=== PATIENT | female | born 1935 | race Native Hawaiian/Other Pacific Islander ===

== ENCOUNTER 2018-10-23 23:11 | Inpatient (IN) | payer MEDICARE, MEDICAID ==
[2018-10-23] MEDS ORDERED: Sodium Chloride 0.9% 1,000 ML IV ONE (23:22)
[2018-10-23 23:35] LABS: BASO % 0.1 % (0.0-2.0); LYMPH # 1.3 K/uL (1.0-4.3); LYMPH % 8.6 % (20.0-40.0); MEAN CELL VOLUME 90.2 fL (81.0-99.0); MEAN CORPUSCULAR HEMOGLOBIN 30.5 pg (27.0-31.0); MEAN CORPUSCULAR HGB CONC 33.8 g/dL (33.0-37.0); MEAN PLATELET VOLUME 8.5 fL (7.2-11.7); MONO # 0.8 K/uL (0.0-0.8); MONO % 5.5 % (0.0-10.0); NEUT # 12.6 K/uL (1.8-7.0); NEUT % 85.8 % (50.0-75.0); PLATELET COUNT 304 K/uL (130-400); RBC 5.58 Mil/uL (3.80-5.20); RED CELL DISTRIBUTION WIDTH 13.4 % (11.5-14.5); WHITE BLOOD COUNT 14.7 K/uL (4.8-10.8)
--- NOTE | 2018-10-23 23:35 | C.PDOC ---
History Of Present Illness 83 year old female brought in by family for 2 days of epigastric abdominal pain with vomiting. Family states patient has Hx of hiatal hernia and believed the pain was due to that which was why she was not brought in sooner. Denies chest pain, SOB, fever, or chills. Time Seen by Provider: 10/23/18 23:20 Chief Complaint (Nursing): Abdominal Pain History Per: Patient History/Exam Limitations: no limitations Onset/Duration Of Symptoms: Days (2) Current Symptoms Are (Timing): Still Present Location Of Pain/Discomfort: Epigastric Quality Of Discomfort: Unable To Describe Associated Symptoms: Vomiting. denies: Fever, Chills, Chest Pain, Other (SOB) Exacerbating Factors: None Alleviating Factors: None Recent travel outside of the [place]: No Abnormal Vaginal Bleeding: No Past Medical History Reviewed: Historical Data, Nursing Documentation, Vital Signs Family History: States: Unknown Family Hx Review Of Systems Except As Marked, All Systems Reviewed And Found Negative. Constitutional: Negative for: Fever, Chills Cardiovascular: Negative for: Chest Pain Respiratory: Negative for: Shortness of Breath Gastrointestinal: Positive for: Vomiting, Abdominal Pain Physical Exam - Physical Exam Appears: Non-toxic Skin: Normal Color, Warm, Dry Head: Atraumatic, Normacephalic Oral Mucosa: Moist Neck: Normal, No Midline Cervical Tenderness, No Paracervical Tenderness, Supple Chest: Symmetrical, No Tenderness Cardiovascular: Rhythm Regular Respiratory: Normal Breath Sounds, No Rales, No Rhonchi, No Wheezing Gastrointestinal/Abdominal: Bowel Sounds (Positive), Soft, Tenderness (Epigastric), No Guarding, No Rebound Back: No CVA Tenderness Neurological/Psych: Oriented x3, Normal Speech ED Course And Treatment - Laboratory Results Result Diagrams: 10/23/18 23:32 10/23/18 23:32 ECG: Interpreted By Me, Viewed By Me ECG Rhythm: Sinus Rhythm Interpretation Of ECG: Incomplete RBBB, nonspecific ST changes Rate From EC Medical Decision Making Medical Decision Making: CT abd/pel, EKG, blood work, CXR, and urinalysis ordered. Morphine, protonix, zofran, and IV fluids administered. Disposition Discussed With : Anurag Conte - Disposition Disposition Time: 01:00 Condition: STABLE Forms: [employer] ([place]) - Clinical Impression Clinical Impression: Abdominal pain, Hypokalemia, Vomiting - Scribe Statement The provider has reviewed the documentation as recorded by the Scribe Ross Ruiz All medical record entries made by the Scribe were at my direction and personally dictated by me. I have reviewed the chart and agree that the record accurately reflects my personal performance of the history, physical exam, medical decision making, and the department course for this patient. I have also personally directed, reviewed, and agree with the discharge instructions and disposition. Physician Patient Turnover Patient Signed Over To: Anurag Conte Handoff Comments: pending ct of abdomen, labs and admisison
[2018-10-23 23:47] LABS: ALBUMIN 4.8 g/dL (3.5-5.0); CALCIUM 9.9 mg/dl (8.6-10.4)
[2018-10-23] MEDS ORDERED: Sodium Chloride 0.9% 1,000 ML ONE (23:54)
[2018-10-24] MEDS ORDERED: Potassium Chloride 20 mEq 200 ML ONE (00:07)
[2018-10-24 00:19] LABS: TROPONIN I 0.224 ng/mL (0.00-0.120)
[2018-10-24] MEDS ORDERED: Piperacillin/Tazobact 3.375 gm 100 ML IVPB STA (00:33)
[2018-10-24 00:43] LABS: VENOUS BLOOD GAS PCO2 57 mmHg (40-60); VENOUS BLOOD GAS PO2 31 mm/Hg (30-55); VENOUS BLOOD PH 7.49 (7.32-7.43)
[2018-10-24] MEDS ORDERED: Iodixanol 320 mg/ml 150 ml Bottle IV ONE (00:51)
[2018-10-24 01:13] LABS: BANDS 2 % (0-2); LYMPHOCYTE 11 % (20-40); MONOCYTE 5 % (0-10); NEUTROPHIL 82 % (50-75); PLATELET ESTIMATE NORMAL (NORMAL); TOTAL CELLS COUNTED 100
[2018-10-24] MEDS ORDERED: Piperacillin/Tazobact 3.375 gm 100 ML IVPB ONE (01:24)
--- NOTE | 2018-10-24 02:13 | CP.PCM.HP ---
<Yasmany Spring - Last Filed: 10/24/18 05:19> History of Present Illness - History of Present Illness History of Present Illness: PGY1 H&P for Medicine Hospitalist Patient is a 83 y/o female with past medical history of hiatal hernia, DVT/PE on coumadin, HTN who presented to the ED with complaints of non-radiating epigastric pain and vomiting for the past 2 days. Pt presents with daughterSanjuana. Daughter and pt both confirm that she has vomiting in excess of 7 times, which began right after she last ate 2 days ago. Pt has a history of feeling full after eating, which causes epigastric abdominal pain that is relieved by vomiting. However, during these past two days, the pain did not resolve with vomiting. Vomit advanced from food material, to liquid material, to some bright bloody material. She is not only vomiting dark, coffee ground material. Last bowel movement was 2 days ago, which was normal. Denies fever, chills, chest pain, palpitations, sob, diarrhea, urinary changes, numbness or tingling, headache, blurry vision, falls, trauma. PMD - Dr. White PMHx - hiatal hernia (dx ~10 years ago), DVT/PE in 2000, HTN PSHx- Appendectomy (~50 years ago), IVC Filter (10 years ago) Allergies - Seasonal Meds - Coumadin 3mg PO HS, Losartan HCTZ 100- 25mg PO HS, Bisoprolol 5mg PO HS FamHx- Mother (DM), sister (HTN) SocHx - Never consumed tobacco, alcohol, recreational drugs. Lives with her daughter in an apartment on the second floor. madelyn Wei, [phone] Present on Admission - Present on Admission Any Indicators Present on Admission: Yes History of DVT/PE: Yes Review of Systems - Review of Systems All systems: reviewed and no additional remarkable complaints except (se HPI) Past Patient History - Past Social History Smoking Status: Never Smoked - CARDIAC Hx Hypertension: Yes - PULMONARY Hx Pulmonary Embolism: Yes - PSYCHIATRIC Hx Substance Use: No Meds Allergies/Adverse Reactions: Allergies Allergy/AdvReac Type Severity Reaction Status Date / Time No Known Allergies Allergy Unverified 10/23/18 23:21 Physical Exam - Constitutional Appears: Non-toxic, No Acute Distress - Head Exam Head Exam: ATRAUMATIC, NORMAL INSPECTION - Eye Exam Eye Exam: EOMI, Normal appearance - ENT Exam ENT Exam: Mucous Membranes Dry Additional comments: (+) NGT in place, on intermittent suction with >350cc of coffee ground material in cannister - Neck Exam Neck exam: Positive for: Normal Inspection - Respiratory Exam Respiratory Exam: Rales (in left lower lung field), NORMAL BREATHING PATTERN. absent: Decreased Breath Sounds, Rhonchi, Wheezes Additional comments: (+) gastric sounds in upper mid thoracic auscultation - Cardiovascular Exam Cardiovascular Exam: Tachycardia (approximately 100), REGULAR RHYTHM, +S1, +S2. absent: Diastolic murmur, Irregular Rhythm, JVD, Systolic Murmur - GI/Abdominal Exam GI & Abdominal Exam: Normal Bowel Sounds, Soft, Tenderness (epigastric tenderness). absent: Firm, Guarding, Rebound, Rigid - Extremities Exam Extremities exam: Positive for: pedal pulses present. Negative for: calf tend erness, pedal edema - Back Exam Back exam: NORMAL INSPECTION - Neurological Exam Neurological exam: Alert, Oriented x3 - Psychiatric Exam Psychiatric exam: Normal Affect, Normal Mood - Skin Skin Exam: Dry, Normal Color, Warm Additional comments: (+) decreased skin turgor Results - Vital Signs Recent Vital Signs: Last Vital Signs Temp 98 F 10/23/18 23:46 Pulse 86 10/23/18 23:46 Resp 24 10/23/18 23:46 BP 120/73 10/23/18 23:46 Pulse Ox 94 L 10/23/18 23:46 - Labs Result Diagrams: 10/24/18 05:02 10/23/18 23:32 Labs: Laboratory Results - last 24 hr 10/23/18 10/23/18 10/23/18 23:32 23:32 23:50 WBC 14.7 H D RBC 5.58 H Hgb 17.0 H D Hct 50.4 H MCV 90.2 MCH 30.5 MCHC 33.8 RDW 13.4 Plt Count 304 MPV 8.5 Neut % (Auto) 85.8 H Lymph % (Auto) 8.6 L [place] % (Auto) 5.5 Eos % (Auto) 0.0 Baso % (Auto) 0.1 Neut # (Auto) 12.6 H Lymph # (Auto) 1.3 [place] # (Auto) 0.8 Eos # (Auto) 0.0 Baso # (Auto) 0.0 Neutrophils % (Manual) 82 H Band Neutrophils % 2 Lymphocytes % (Manual) 11 L Monocytes % (Manual) 5 Platelet Estimate Normal pO2 VBG pH VBG pCO2 VBG HCO3 VBG Total CO2 VBG O2 Sat (Calc) VBG Base Excess VBG Potassium Glucose Lactate Sodium 140 Potassium 2.7 L Chloride 88 L Carbon Dioxide 37 H Anion Gap 17 BUN 43 H Creatinine 1.1 Est GFR ( Amer) 57 Est GFR (Non-Af Amer) 47 Random Glucose 243 H D Calcium 9.9 Total Bilirubin 0.7 AST 63 H ALT 20 Alkaline Phosphatase 80 Troponin I 0.2240 H* NT-Pro-B Natriuret Pep 3110 H Total Protein 9.5 H Albumin 4.8 Globulin 4.7 H Albumin/Globulin Ratio 1.0 Lipase 112 Venous Blood Potassium Stool Occult Blood 10/24/18 10/24/18 00:35 01:18 WBC RBC Hgb Hct MCV MCH MCHC RDW Plt Count MPV Neut % (Auto) Lymph % (Auto) [place] % (Auto) Eos % (Auto) Baso % (Auto) Neut # (Auto) Lymph # (Auto) [place] # (Auto) Eos # (Auto) Baso # (Auto) Neutrophils % (Manual) Band Neutrophils % Lymphocytes % (Manual) Monocytes % (Manual) Platelet Estimate pO2 31 VBG pH 7.49 H VBG pCO2 57 VBG HCO3 37.3 VBG Total CO2 45.1 H VBG O2 Sat (Calc) 58.5 VBG Base Excess 17.0 H VBG Potassium 2.8 L Glucose 206 H Lactate 2.6 H Sodium 142.0 Potassium Chloride 94.0 L Carbon Dioxide Anion Gap BUN Creatinine Est GFR ( Amer) Est GFR (Non-Af Amer) Random Glucose Calcium Total Bilirubin AST ALT Alkaline Phosphatase Troponin I NT-Pro-B Natriuret Pep Total Protein Albumin Globulin Albumin/Globulin Ratio Lipase Venous Blood Potassium 2.8 L Stool Occult Blood Negative Assessment & Plan - Assessment and Plan (Free Text) Assessment: This is an 83 y/o female with past medical history of hiatal hernia, DVT/PE on coumadin, HTN who presented to the ED with epigastric pain and coffee ground emesis.Troponin is elevated on admission. Plan: NSTEMI, possibly due to demand ischemia Pt is hemodynamically stable Troponin 0.2240, will trend JER panel with EKG q6h x2 ASA contraindicated due to acute GI bleed EKG shows NSR at 86, incomplete RBBB; as per ED physician Betablocker not given due to risk of hypotension in setting of GI bleed BNP is 3110 Cardiology, Dr. Beckett, consulted. Recommendations appreciated GI Bleed Pt is hemodynamically stable NGT expressed 350 cc of coffee ground emesis on insertion by ED physician Possibly upper GI bleed; FOBT is negative Protonix gtt started NPO Gastroenterology, Dr. Cervantes, consulted. Recommendations appreciated FFP x2 units, NGT to gravity after decompression Will scope this am Gastric outlet obstruction, likely secondary to chronic hiatal hernia Abdominal CT with IV contrast shows complex rotated hernia. Retrocardiac stomach. Partial gastric outlet obstruction secondary to hernia. Pulmonary nodules. No signs of perforation; will f/u official reading. Surgery, Dr Hogan, consulted. Recommendations appreciated. 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 the pt Zofran prn nausea/vomiting Leukocytosis Pt afebrile Received one dose of Zosyn in the ED Likely reactive Lactate is 2.6 but possibly due to decreased perfusion Hypochloremic metabolic acidosis with hypokalemia, likely secondary to multiple episodes of vomiting Pt received potassium chloride 20 meq IVPB x2 in the ED Will continue to replete potassium Will hydrate with IVF at 50 cc/hr Hyperglycemia on admission, likely reactive F/u HgbA1c Hx of HTN Pt is normotensive In setting of acute GI bleed, will hold home Losartan/HCTZ, Bisoprolol Will reconsider restarting in the am Hx of DVT/PE Coumadin on hold in setting of GI bleed PT/PTT/INR is 28.0/42/2.6 Will give vitamin K 10 mg IVP, 2 units of FFP GI ppx: Protonix gtt VTE PPX: contraindicated secondary to GI bleed NPO Full code Dispo: Admit to telemetry, consider ICU evaluation in event of decompensation Case was reviewed and discussed with attending physician, Dr. Amara Spring PGY1 <Dominic Maloney - Last Filed: 10/24/18 06:40> Results - Vital Signs Recent Vital Signs: Last Vital Signs Temp 98.0 F 10/24/18 02:21 Pulse 90 10/24/18 04:49 Resp 18 10/24/18 04:49 BP 134/97 H 10/24/18 04:49 Pulse Ox 97 10/24/18 04:49 - Labs Result Diagrams: 10/24/18 05:02 10/24/18 05:02 Labs: Laboratory Results - last 24 hr 10/23/18 10/23/18 10/23/18 23:32 23:32 23:50 WBC 14.7 H D RBC 5.58 H Hgb 17.0 H D Hct 50.4 H MCV 90.2 MCH 30.5 MCHC 33.8 RDW 13.4 Plt Count 304 MPV 8.5 Neut % (Auto) 85.8 H Lymph % (Auto) 8.6 L [place] % (Auto) 5.5 Eos % (Auto) 0.0 Baso % (Auto) 0.1 Neut # (Auto) 12.6 H Lymph # (Auto) 1.3 [place] # (Auto) 0.8 Eos # (Auto) 0.0 Baso # (Auto) 0.0 Neutrophils % (Manual) 82 H Band Neutrophils % 2 Lymphocytes % (Manual) 11 L Monocytes % (Manual) 5 Platelet Estimate Normal PT INR APTT pO2 VBG pH VBG pCO2 VBG HCO3 VBG Total CO2 VBG O2 Sat (Calc) VBG Base Excess VBG Potassium Glucose Lactate Sodium 140 Potassium 2.7 L Chloride 88 L Carbon Dioxide 37 H Anion Gap 17 BUN 43 H Creatinine 1.1 Est GFR ( Amer) 57 Est GFR (Non-Af Amer) 47 Random Glucose 243 H D Calcium 9.9 Phosphorus Magnesium Total Bilirubin 0.7 AST 63 H ALT 20 Alkaline Phosphatase 80 Total Creatine Kinase CK-MB (Mass) Troponin I 0.2240 H* NT-Pro-B Natriuret Pep 3110 H Total Protein 9.5 H Albumin 4.8 Globulin 4.7 H Albumin/Globulin Ratio 1.0 Lipase 112 Venous Blood Potassium Stool Occult Blood Blood Type Blood Type Confirm Antibody Screen 10/24/18 10/24/18 10/24/18 00:35 01:18 01:47 WBC RBC Hgb Hct MCV MCH MCHC RDW Plt Count MPV Neut % (Auto) Lymph % (Auto) [place] % (Auto) Eos % (Auto) Baso % (Auto) Neut # (Auto) Lymph # (Auto) [place] # (Auto) Eos # (Auto) Baso # (Auto) Neutrophils % (Manual) Band Neutrophils % Lymphocytes % (Manual) Monocytes % (Manual) Platelet Estimate PT INR APTT pO2 31 VBG pH 7.49 H VBG pCO2 57 VBG HCO3 37.3 VBG Total CO2 45.1 H VBG O2 Sat (Calc) 58.5 VBG Base Excess 17.0 H VBG Potassium 2.8 L Glucose 206 H Lactate 2.6 H Sodium 142.0 Potassium Chloride 94.0 L Carbon Dioxide Anion Gap BUN Creatinine Est GFR ( Amer) Est GFR (Non-Af Amer) Random Glucose Calcium Phosphorus Magnesium Total Bilirubin AST ALT Alkaline Phosphatase Total Creatine Kinase CK-MB (Mass) Troponin I NT-Pro-B Natriuret Pep Total Protein Albumin Globulin Albumin/Globulin Ratio Lipase Venous Blood Potassium 2.8 L Stool Occult Blood Negative Blood Type A POSITIVE Blood Type Confirm A POSITIVE Antibody Screen Negative 10/24/18 10/24/18 10/24/18 02:10 03:16 05:02 WBC 15.5 H RBC 5.60 H Hgb 16.6 H Hct 50.9 H MCV 90.9 MCH 29.7 MCHC 32.7 L RDW 13.8 Plt Count 262 MPV 8.7 Neut % (Auto) 89.1 H Lymph % (Auto) 4.3 L [place] % (Auto) 5.7 Eos % (Auto) 0.0 Baso % (Auto) 0.9 Neut # (Auto) 13.8 H Lymph # (Auto) 0.7 L [place] # (Auto) 0.9 H Eos # (Auto) 0.0 Baso # (Auto) 0.1 Neutrophils % (Manual) 85 H Band Neutrophils % 2 Lymphocytes % (Manual) 9 L Monocytes % (Manual) 4 Platelet Estimate Normal PT 28.0 H INR 2.6 APTT 42 H pO2 VBG pH VBG pCO2 VBG HCO3 VBG Total CO2 VBG O2 Sat (Calc) VBG Base Excess VBG Potassium Glucose Lactate Sodium Potassium Chloride Carbon Dioxide Anion Gap BUN Creatinine Est GFR ( Amer) Est GFR (Non-Af Amer) Random Glucose Calcium Phosphorus 4.4 Magnesium 1.7 Total Bilirubin AST ALT Alkaline Phosphatase Total Creatine Kinase CK-MB (Mass) Troponin I NT-Pro-B Natriuret Pep Total Protein Albumin Globulin Albumin/Globulin Ratio Lipase Venous Blood Potassium Stool Occult Blood Blood Type Blood Type Confirm Antibody Screen 10/24/18 10/24/18 10/24/18 05:02 05:02 05:44 WBC RBC Hgb Hct MCV MCH MCHC RDW Plt Count MPV Neut % (Auto) Lymph % (Auto) [place] % (Auto) Eos % (Auto) Baso % (Auto) Neut # (Auto) Lymph # (Auto) [place] # (Auto) Eos # (Auto) Baso # (Auto) Neutrophils % (Manual) Band Neutrophils % Lymphocytes % (Manual) Monocytes % (Manual) Platelet Estimate PT 30.6 H INR 2.8 APTT pO2 VBG pH VBG pCO2 VBG HCO3 VBG Total CO2 VBG O2 Sat (Calc) VBG Base Excess VBG Potassium Glucose Lactate Sodium 141 Potassium 2.9 L Chloride 91 L Carbon Dioxide 40 H* Anion Gap 14 BUN 46 H Creatinine 1.2 Est GFR ( Amer) 52 Est GFR (Non-Af Amer) 43 Random Glucose 158 H D Calcium 9.5 Phosphorus 4.2 Magnesium 1.8 Total Bilirubin 0.7 AST 56 H ALT 19 Alkaline Phosphatase 73 Total Creatine Kinase 439 H CK-MB (Mass) 5.44 H Troponin I 0.1680 H* NT-Pro-B Natriuret Pep Total Protein 8.8 H Albumin 4.5 Globulin 4.4 H Albumin/Globulin Ratio 1.0 Lipase Venous Blood Potassium Stool Occult Blood Blood Type Blood Type Confirm Antibody Screen Assessment & Plan - Date & Time Date: 10/24/18 (I have seen and examined the patient. I agree with the findings and plan of care as documented by Dr. Spring. Patient with NSTEMI. ROMIx3 with EKG. No aspirin given due to GI bleed. Consult to Cardio. Consult to GI for GI bleed. Consult appreciated. Protonix. FFP. Hold coumadin. Gastric outlet obstruction. Consult to Surgery who recommends consult to Cardiothora cic. Monitor for acute changes.) Time: 06:38 Attending/Attestation - Attestation I have personally seen and examined this patient.: Yes I have fully participated in the care of the patient.: Yes I have reviewed all pertinent clinical information: Yes
[2018-10-24 02:37] LABS: INR 2.6
[2018-10-24] MEDS ORDERED: Phytonadione 10 mg/ml Inj (Adult) IV STA (03:14)
[2018-10-24] MEDS ORDERED: Lactated Ringer's 1,000 ML IV SCH (03:15)
[2018-10-24] MEDS ORDERED: Sodium Chloride 0.9% 1,000 ML IV ONE (03:19)
[2018-10-24] MEDS ORDERED: Sodium Chloride 0.9% 1,000 ML IV SCH ×2 (03:30→04:45)
--- NOTE | 2018-10-24 03:34 | CP.PCM.CON ---
History of Present Illness - History of Present Illness History of Present Illness: Surgery Consult Note for Dr. Hogan Consult: Gastric outlet obstruction CC: Hematemesis HPI: 83 year old female, past medical history of Hiatal hernia, DVTs on coumadin s/p IVC filter ('01) and HTN, presents to the emergency department with bilious and bloody vomiting since Sunday. Patient's family at bedside providing history. Patient has known hiatal hernia and with overeating experiences nausea and vomiting that usually resolves however this time patient continued to vomit until family noticed blood. She has never experienced such severe symptoms before. Unable to tolerate PO intake at this time. States she is having some shortness of breath. Denies nausea, diarrhea, or constipation. Last bowel movement was Sunday, normal per patient. In ED, NGT placed by ER physician with 200cc of bilious output. Last EGD and colonoscopy 10 years ago, states normal. Denies fever, chills, chest pain, palpitations, headaches, dizziness, or urinary symptoms. PMH: See above PSH: Appendectomy, IVC filter FH: Noncontributory SH: Denies tobacco, alcohol, drugs ALL: NKDA Meds: See MAR Review of Systems - Constitutional Constitutional: Weakness. absent: Chills, Fever - EENT Eyes: absent: Blurred Vision, Change in Vision Nose/Mouth/Throat: absent: Nasal Congestion, Nasal Discharge - Cardiovascular Cardiovascular: Dyspnea. absent: Chest Pain - Respiratory Respiratory: Dyspnea. absent: Cough, Hemoptysis - Gastrointestinal Gastrointestinal: Abdominal Pain, Hematemesis, Vomiting. absent: Bloating, Coffee Ground Emesis, Cramping, Diarrhea, Nausea - Genitourinary Genitourinary: absent: Difficulty Urinating, Dysuria - Musculoskeletal Musculoskeletal: absent: Back Pain, Neck Pain - Integumentary Integumentary: absent: Bleeding Lesions, Changing Lesions - Neurological Neurological: absent: Confusion, Dizziness - Psychiatric Psychiatric: absent: Anxiety, Depression Past Patient History - Past Social History Smoking Status: Never Smoked - CARDIAC Hx Hypertension: Yes - PULMONARY Hx Pulmonary Embolism: Yes - PSYCHIATRIC Hx Substance Use: No Meds Allergies/Adverse Reactions: Allergies Allergy/AdvReac Type Severity Reaction Status Date / Time No Known Allergies Allergy Unverified 10/23/18 23:21 - Medications Medications: Current Medications Pantoprazole Sodium 80 mg/ (Sodium Chloride) 100 mls @ 10 mls/hr IVP .Q10H [facility]ASE Sodium Chloride (Sodium Chloride 0.9%) 1,000 mls @ 1,000 mls/hr IV .Q1H ONE Stop: 10/24/18 04:18 Sodium Chloride (Sodium Chloride 0.9%) 1,000 mls @ 110 mls/hr IV .Q9H6M [facility]ASE Potassium Chloride (Potassium Chloride 20 Meq/100 Ml) 20 meq in 100 mls @ 50 mls/hr IVPB DAILY HCASE Stop: 10/24/18 11:59 Physical Exam - Constitutional Appears: Non-toxic, No Acute Distress - Head Exam Head Exam: ATRAUMATIC, NORMAL INSPECTION, NORMOCEPHALIC - Eye Exam Eye Exam: EOMI - ENT Exam ENT Exam: Mucous Membranes Dry - Respiratory Exam Respiratory Exam: NORMAL BREATHING PATTERN. absent: Accessory Muscle Use, Respiratory Distress - Cardiovascular Exam Cardiovascular Exam: REGULAR RHYTHM. absent: Tachycardia - GI/Abdominal Exam GI & Abdominal Exam: Normal Bowel Sounds, Soft. absent: Distended, Guarding, Rebound, Tenderness Additional comments: NGT - low, continuous at 80 - Neurological Exam Neurological exam: Alert, Oriented x3 - Psychiatric Exam Psychiatric exam: Normal Affect, Normal Mood - Skin Skin Exam: Dry, Intact, Normal Color, Warm Results - Vital Signs Recent Vital Signs: Last Vital Signs Temp 98.0 F 10/24/18 02:21 Pulse 89 10/24/18 02:21 Resp 16 10/24/18 02:21 BP 128/89 10/24/18 02:21 Pulse Ox 96 10/24/18 02:21 - Labs Result Diagrams: 10/23/18 23:32 10/23/18 23:32 Labs: Laboratory Results - last 24 hr 10/23/18 10/23/18 10/23/18 23:32 23:32 23:50 WBC 14.7 H D RBC 5.58 H Hgb 17.0 H D Hct 50.4 H MCV 90.2 MCH 30.5 MCHC 33.8 RDW 13.4 Plt Count 304 MPV 8.5 Neut % (Auto) 85.8 H Lymph % (Auto) 8.6 L [place] % (Auto) 5.5 Eos % (Auto) 0.0 Baso % (Auto) 0.1 Neut # (Auto) 12.6 H Lymph # (Auto) 1.3 [place] # (Auto) 0.8 Eos # (Auto) 0.0 Baso # (Auto) 0.0 Neutrophils % (Manual) 82 H Band Neutrophils % 2 Lymphocytes % (Manual) 11 L Monocytes % (Manual) 5 Platelet Estimate Normal PT INR APTT pO2 VBG pH VBG pCO2 VBG HCO3 VBG Total CO2 VBG O2 Sat (Calc) VBG Base Excess VBG Potassium Glucose Lactate Sodium 140 Potassium 2.7 L Chloride 88 L Carbon Dioxide 37 H Anion Gap 17 BUN 43 H Creatinine 1.1 Est GFR ( Amer) 57 Est GFR (Non-Af Amer) 47 Random Glucose 243 H D Calcium 9.9 Total Bilirubin 0.7 AST 63 H ALT 20 Alkaline Phosphatase 80 Troponin I 0.2240 H* NT-Pro-B Natriuret Pep 3110 H Total Protein 9.5 H Albumin 4.8 Globulin 4.7 H Albumin/Globulin Ratio 1.0 Lipase 112 Venous Blood Potassium Stool Occult Blood Blood Type Antibody Screen 10/24/18 10/24/18 10/24/18 00:35 01:18 01:47 WBC RBC Hgb Hct MCV MCH MCHC RDW Plt Count MPV Neut % (Auto) Lymph % (Auto) [place] % (Auto) Eos % (Auto) Baso % (Auto) Neut # (Auto) Lymph # (Auto) [place] # (Auto) Eos # (Auto) Baso # (Auto) Neutrophils % (Manual) Band Neutrophils % Lymphocytes % (Manual) Monocytes % (Manual) Platelet Estimate PT INR APTT pO2 31 VBG pH 7.49 H VBG pCO2 57 VBG HCO3 37.3 VBG Total CO2 45.1 H VBG O2 Sat (Calc) 58.5 VBG Base Excess 17.0 H VBG Potassium 2.8 L Glucose 206 H Lactate 2.6 H Sodium 142.0 Potassium Chloride 94.0 L Carbon Dioxide Anion Gap BUN Creatinine Est GFR ( Amer) Est GFR (Non-Af Amer) Random Glucose Calcium Total Bilirubin AST ALT Alkaline Phosphatase Troponin I NT-Pro-B Natriuret Pep Total Protein Albumin Globulin Albumin/Globulin Ratio Lipase Venous Blood Potassium 2.8 L Stool Occult Blood Negative Blood Type A POSITIVE Antibody Screen Negative 10/24/18 02:10 WBC RBC Hgb Hct MCV MCH MCHC RDW Plt Count MPV Neut % (Auto) Lymph % (Auto) [place] % (Auto) Eos % (Auto) Baso % (Auto) Neut # (Auto) Lymph # (Auto) [place] # (Auto) Eos # (Auto) Baso # (Auto) Neutrophils % (Manual) Band Neutrophils % Lymphocytes % (Manual) Monocytes % (Manual) Platelet Estimate PT 28.0 H INR 2.6 APTT 42 H pO2 VBG pH VBG pCO2 VBG HCO3 VBG Total CO2 VBG O2 Sat (Calc) VBG Base Excess VBG Potassium Glucose Lactate Sodium Potassium Chloride Carbon Dioxide Anion Gap BUN Creatinine Est GFR ( Amer) Est GFR (Non-Af Amer) Random Glucose Calcium Total Bilirubin AST ALT Alkaline Phosphatase Troponin I NT-Pro-B Natriuret Pep Total Protein Albumin Globulin Albumin/Globulin Ratio Lipase Venous Blood Potassium Stool Occult Blood Blood Type Antibody Screen Assessment & Plan - Assessment and Plan (Free Text) Assessment: 83F w/ abdominal pain and hematemesis, dehydration CT: Hiatal hernia (Type 4?) w/ decompressed bowel distally, no evidence of free air or ischemic changes Plan: NPO NGT - low, intermittent at 80 IVF - patient severely dehydrated, likely metabolic alkalosis 2/2 vomiting, need adequate resuscitation Monitor PT/INR Serial abdominal exams AM labs F/u GI recommendations - EGD in AM F/u cardiology Recommend cardiothoracic consult and further evaluation with Dr. Perez D/w Dr. Edison Vu PGY1
[2018-10-24] MEDS ORDERED: Phytonadione 10 mg/ml Inj (Adult) ONE (04:01)
[2018-10-24] MEDS: Pantoprazole 80 MG in Sodium Chloride 0.9% 100 ML IVP SCH ×3 (04:05→23:16)
[2018-10-24 05:07] LABS: BASO # 0.1 K/uL (0.0-0.2); BASO % 0.9 % (0.0-2.0); HEMOGLOBIN 16.6 g/dL (11.0-16.0); LYMPH # 0.7 K/uL (1.0-4.3); LYMPH % 4.3 % (20.0-40.0); MEAN CELL VOLUME 90.9 fL (81.0-99.0); MEAN CORPUSCULAR HEMOGLOBIN 29.7 pg (27.0-31.0); MEAN CORPUSCULAR HGB CONC 32.7 g/dL (33.0-37.0); MEAN PLATELET VOLUME 8.7 fL (7.2-11.7); MONO # 0.9 K/uL (0.0-0.8); MONO % 5.7 % (0.0-10.0); NEUT # 13.8 K/uL (1.8-7.0); NEUT % 89.1 % (50.0-75.0); PLATELET COUNT 262 K/uL (130-400); RED CELL DISTRIBUTION WIDTH 13.8 % (11.5-14.5); WHITE BLOOD COUNT 15.5 K/uL (4.8-10.8)
[2018-10-24 05:28] LABS: INR 2.8; PROTHROMBIN TIME 30.6 SECONDS (9.7-12.2)
[2018-10-24 05:32] LABS: ALBUMIN 4.5 g/dL (3.5-5.0); CALCIUM 9.5 mg/dl (8.6-10.4)
[2018-10-24 05:44] LABS: BANDS 2 % (0-2); LYMPHOCYTE 9 % (20-40); MONOCYTE 4 % (0-10); NEUTROPHIL 85 % (50-75); PLATELET ESTIMATE NORMAL (NORMAL); TOTAL CELLS COUNTED 100
[2018-10-24 06:10] LABS: CK-MB 5.44 ng/mL (0.0-3.38); TROPONIN I 0.168 ng/mL (0.00-0.120)
--- NOTE | 2018-10-24 07:16 | CP.PCM.PN ---
Objective - Vital Signs/Intake and Output Vital Signs (last 24 hours): Temp Pulse Resp BP Pulse Ox 98.0 F 90 18 134/97 H 97 10/24/18 02:21 10/24/18 04:49 10/24/18 04:49 10/24/18 04:49 10/24/18 04:49 - Medications Medications: Current Medications Pantoprazole Sodium 80 mg/ (Sodium Chloride) 100 mls @ 10 mls/hr IVP .Q10H [facility] Last Admin: 10/24/18 04:05 Dose: 10 mls/hr Potassium Chloride (Potassium Chloride 20 Meq/100 Ml) 20 meq in 100 mls @ 50 mls/hr IVPB DAILY CHASE Stop: 10/24/18 11:59 Sodium Chloride (Sodium Chloride 0.9%) 1,000 mls @ 50 mls/hr IV .Q20H [facility]ASE Last Admin: 10/24/18 04:57 Dose: 50 mls/hr Ondansetron HCl (Zofran Inj) 4 mg IVP Q4 PRN PRN Reason: Nausea/Vomiting - Labs Labs: 10/24/18 05:02 10/24/18 05:02 PT 30.6 SECONDS (9.7-12.2) H 10/24/18 05:02 INR 2.8 10/24/18 05:02 APTT 42 SECONDS (21-34) H 10/24/18 02:10
--- NOTE | 2018-10-24 09:02 | CP.PCM.CON ---
<Bryson Gomez - Last Filed: 10/24/18 08:59> History of Present Illness - History of Present Illness History of Present Illness: Surgery Consult Note for Dr. Perez Consult: Gastric outlet obstruction CC: Hematemesis HPI: 83F presented to the emergency department with bilious and bloody vomiting since Sunday. Patient's family at bedside providing history. Patient has known hiatal hernia and with overeating experiences nausea and vomiting that usually resolves however this time patient continued to vomit until family noticed blood. She has never experienced such severe symptoms before. Unable to tolerate PO intake at this time. States she is having some shortness of breath. Denies nausea, diarrhea, or constipation. Last bowel movement was Sunday, normal per patient. In ED, NGT placed by ER physician with 200cc of bilious output. Last EGD and colonoscopy 10 years ago, states normal. Denies fever, chills, chest pain, palpitations, headaches, dizziness, or urinary symptoms. 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 (') and HTN PSH: Appendectomy, IVC filter FH: Noncontributory SH: Denies tobacco, alcohol, drugs ALL: NKDA Meds: See MAR Review of Systems - Review of Systems All systems: reviewed and no additional remarkable complaints except (as per HPI) Past Patient History - Past Social History Smoking Status: Never Smoked - CARDIAC Hx Hypertension: Yes - PULMONARY Hx Pulmonary Embolism: Yes - HEENT Hx HEENT Problems: No - RENAL Hx Chronic Kidney Disease: No - ENDOCRINE/METABOLIC Hx Endocrine Disorders: No - HEMATOLOGICAL/ONCOLOGICAL Hx Blood Disorders: No - INTEGUMENTARY Hx Dermatological Problems: No - MUSCULOSKELETAL/RHEUMATOLOGICAL Hx Musculoskeletal Disorders: No Hx Falls: No - GASTROINTESTINAL Hx Gastrointestinal Disorders: No - GENITOURINARY/GYNECOLOGICAL Hx Genitourinary Disorders: No - PSYCHIATRIC Hx Psychophysiologic Disorder: No Hx Substance Use: No - SURGICAL HISTORY Hx Appendectomy: Yes (13 years old) Other/Comment: IVC filter on 2000 - ANESTHESIA Hx Anesthesia: Yes Hx Anesthesia Reactions: No Hx Malignant Hyperthermia: No Has any member of the family had a problem w/ anesthesia?: No Meds Allergies/Adverse Reactions: Allergies Allergy/AdvReac Type Severity Reaction Status Date / Time No Known Allergies Allergy Unverified 10/23/18 23:21 - Medications Medications: Current Medications Pantoprazole Sodium 80 mg/ (Sodium Chloride) 100 mls @ 10 mls/hr IVP .Q10H CHASE Last Admin: 10/24/18 04:05 Dose: 10 mls/hr Potassium Chloride (Potassium Chloride 20 Meq/100 Ml) 20 meq in 100 mls @ 50 mls/hr IVPB DAILY CHASE Stop: 10/24/18 11:59 Sodium Chloride (Sodium Chloride 0.9%) 1,000 mls @ 50 mls/hr IV .Q20H CHASE Last Admin: 10/24/18 04:57 Dose: 50 mls/hr Ondansetron HCl (Zofran Inj) 4 mg IVP Q4 PRN PRN Reason: Nausea/Vomiting Physical Exam - Constitutional Appears: Non-toxic, No Acute Distress - Head Exam Head Exam: ATRAUMATIC, NORMOCEPHALIC - Eye Exam Eye Exam: EOMI. absent: Scleral icterus - ENT Exam Additional comments: NGT in place - Neck Exam Neck exam: Negative for: Tenderness - Respiratory Exam Respiratory Exam: NORMAL BREATHING PATTERN. absent: Accessory Muscle Use, Respiratory Distress - Cardiovascular Exam Cardiovascular Exam: REGULAR RHYTHM, +S1, +S2 - GI/Abdominal Exam GI & Abdominal Exam: Soft. absent: Distended, Firm, Guarding, Rebound, Rigid, Tenderness - Rectal Exam Rectal Exam: Deferred - Extremities Exam Extremities exam: Positive for: normal capillary refill. Negative for: calf tenderness - Back Exam Back exam: absent: CVA tenderness (L), CVA tenderness (R) - Neurological Exam Neurological exam: Alert, Oriented x3 - Skin Skin Exam: Dry, Warm Results - Vital Signs Recent Vital Signs: Last Vital Signs Temp 98.1 F 10/24/18 08:00 Pulse 97 H 10/24/18 08:04 Resp 22 10/24/18 08:00 BP 165/95 H 10/24/18 08:00 Pulse Ox 94 L 10/24/18 08:00 - Labs Result Diagrams: 10/24/18 05:02 10/24/18 05:02 Labs: Laboratory Results - last 24 hr 10/23/18 10/23/18 10/23/18 23:32 23:32 23:50 WBC 14.7 H D RBC 5.58 H Hgb 17.0 H D Hct 50.4 H MCV 90.2 MCH 30.5 MCHC 33.8 RDW 13.4 Plt Count 304 MPV 8.5 Neut % (Auto) 85.8 H Lymph % (Auto) 8.6 L Snyder % (Auto) 5.5 Eos % (Auto) 0.0 Baso % (Auto) 0.1 Neut # (Auto) 12.6 H Lymph # (Auto) 1.3 Snyder # (Auto) 0.8 Eos # (Auto) 0.0 Baso # (Auto) 0.0 Neutrophils % (Manual) 82 H Band Neutrophils % 2 Lymphocytes % (Manual) 11 L Monocytes % (Manual) 5 Platelet Estimate Normal PT INR APTT pO2 VBG pH VBG pCO2 VBG HCO3 VBG Total CO2 VBG O2 Sat (Calc) VBG Base Excess VBG Potassium Glucose Lactate Sodium 140 Potassium 2.7 L Chloride 88 L Carbon Dioxide 37 H Anion Gap 17 BUN 43 H Creatinine 1.1 Est GFR ( Amer) 57 Est GFR (Non-Af Amer) 47 Random Glucose 243 H D Hemoglobin A1c Calcium 9.9 Phosphorus Magnesium Total Bilirubin 0.7 AST 63 H ALT 20 Alkaline Phosphatase 80 Total Creatine Kinase CK-MB (Mass) Troponin I 0.2240 H* NT-Pro-B Natriuret Pep 3110 H Total Protein 9.5 H Albumin 4.8 Globulin 4.7 H Albumin/Globulin Ratio 1.0 Lipase 112 Venous Blood Potassium Stool Occult Blood Blood Type Blood Type Confirm Antibody Screen 10/24/18 10/24/18 10/24/18 00:35 01:18 01:47 WBC RBC Hgb Hct MCV MCH MCHC RDW Plt Count MPV Neut % (Auto) Lymph % (Auto) Snyder % (Auto) Eos % (Auto) Baso % (Auto) Neut # (Auto) Lymph # (Auto) Snyder # (Auto) Eos # (Auto) Baso # (Auto) Neutrophils % (Manual) Band Neutrophils % Lymphocytes % (Manual) Monocytes % (Manual) Platelet Estimate PT INR APTT pO2 31 VBG pH 7.49 H VBG pCO2 57 VBG HCO3 37.3 VBG Total CO2 45.1 H VBG O2 Sat (Calc) 58.5 VBG Base Excess 17.0 H VBG Potassium 2.8 L Glucose 206 H Lactate 2.6 H Sodium 142.0 Potassium Chloride 94.0 L Carbon Dioxide Anion Gap BUN Creatinine Est GFR ( Amer) Est GFR (Non-Af Amer) Random Glucose Hemoglobin A1c Calcium Phosphorus Magnesium Total Bilirubin AST ALT Alkaline Phosphatase Total Creatine Kinase CK-MB (Mass) Troponin I NT-Pro-B Natriuret Pep Total Protein Albumin Globulin Albumin/Globulin Ratio Lipase Venous Blood Potassium 2.8 L Stool Occult Blood Negative Blood Type A POSITIVE Blood Type Confirm A POSITIVE Antibody Screen Negative 10/24/18 10/24/18 10/24/18 02:10 03:16 05:02 WBC 15.5 H RBC 5.60 H Hgb 16.6 H Hct 50.9 H MCV 90.9 MCH 29.7 MCHC 32.7 L RDW 13.8 Plt Count 262 MPV 8.7 Neut % (Auto) 89.1 H Lymph % (Auto) 4.3 L Snyder % (Auto) 5.7 Eos % (Auto) 0.0 Baso % (Auto) 0.9 Neut # (Auto) 13.8 H Lymph # (Auto) 0.7 L Snyder # (Auto) 0.9 H Eos # (Auto) 0.0 Baso # (Auto) 0.1 Neutrophils % (Manual) 85 H Band Neutrophils % 2 Lymphocytes % (Manual) 9 L Monocytes % (Manual) 4 Platelet Estimate Normal PT 28.0 H INR 2.6 APTT 42 H pO2 VBG pH VBG pCO2 VBG HCO3 VBG Total CO2 VBG O2 Sat (Calc) VBG Base Excess VBG Potassium Glucose Lactate Sodium Potassium Chloride Carbon Dioxide Anion Gap BUN Creatinine Est GFR ( Amer) Est GFR (Non-Af Amer) Random Glucose Hemoglobin A1c Calcium Phosphorus 4.4 Magnesium 1.7 Total Bilirubin AST ALT Alkaline Phosphatase Total Creatine Kinase CK-MB (Mass) Troponin I NT-Pro-B Natriuret Pep Total Protein Albumin Globulin Albumin/Globulin Ratio Lipase Venous Blood Potassium Stool Occult Blood Blood Type Blood Type Confirm Antibody Screen 10/24/18 10/24/18 10/24/18 05:02 05:02 05:02 WBC RBC Hgb Hct MCV MCH MCHC RDW Plt Count MPV Neut % (Auto) Lymph % (Auto) Snyder % (Auto) Eos % (Auto) Baso % (Auto) Neut # (Auto) Lymph # (Auto) Snyder # (Auto) Eos # (Auto) Baso # (Auto) Neutrophils % (Manual) Band Neutrophils % Lymphocytes % (Manual) Monocytes % (Manual) Platelet Estimate PT 30.6 H INR 2.8 APTT pO2 VBG pH VBG pCO2 VBG HCO3 VBG Total CO2 VBG O2 Sat (Calc) VBG Base Excess VBG Potassium Glucose Lactate Sodium 141 Potassium 2.9 L Chloride 91 L Carbon Dioxide 40 H* Anion Gap 14 BUN 46 H Creatinine 1.2 Est GFR ( Amer) 52 Est GFR (Non-Af Amer) 43 Random Glucose 158 H D Hemoglobin A1c 5.7 Calcium 9.5 Phosphorus 4.2 Magnesium 1.8 Total Bilirubin 0.7 AST 56 H ALT 19 Alkaline Phosphatase 73 Total Creatine Kinase CK-MB (Mass) Troponin I NT-Pro-B Natriuret Pep Total Protein 8.8 H Albumin 4.5 Globulin 4.4 H Albumin/Globulin Ratio 1.0 Lipase Venous Blood Potassium Stool Occult Blood Blood Type Blood Type Confirm Antibody Screen 10/24/18 05:44 WBC RBC Hgb Hct MCV MCH MCHC RDW Plt Count MPV Neut % (Auto) Lymph % (Auto) Snyder % (Auto) Eos % (Auto) Baso % (Auto) Neut # (Auto) Lymph # (Auto) Snyder # (Auto) Eos # (Auto) Baso # (Auto) Neutrophils % (Manual) Band Neutrophils % Lymphocytes % (Manual) Monocytes % (Manual) Platelet Estimate PT INR APTT pO2 VBG pH VBG pCO2 VBG HCO3 VBG Total CO2 VBG O2 Sat (Calc) VBG Base Excess VBG Potassium Glucose Lactate Sodium Potassium Chloride Carbon Dioxide Anion Gap BUN Creatinine Est GFR ( Amer) Est GFR (Non-Af Amer) Random Glucose Hemoglobin A1c Calcium Phosphorus Magnesium Total Bilirubin AST ALT Alkaline Phosphatase Total Creatine Kinase 439 H CK-MB (Mass) 5.44 H Troponin I 0.1680 H* NT-Pro-B Natriuret Pep Total Protein Albumin Globulin Albumin/Globulin Ratio Lipase Venous Blood Potassium Stool Occult Blood Blood Type Blood Type Confirm Antibody Screen - Imaging and Cardiology CT scan - abdomen Status: Image reviewed by me, Report reviewed by me Assessment & Plan - Assessment and Plan (Free Text) Assessment: 83F with Hiatal hernia (Type 4) w/ decompressed bowel distally, no evidence of free air or ischemic changes Plan: NGT in place EGD today to evaluate bleeding, follow up results NPO Needs cardio/pulm evals Will need open G tube placement prior to any definative treatment Dr. Perez to see pt and will discuss with Dr. Mitchell D/W Dr. Chris Gomez PGY4 <Jose A Perez - Last Filed: 10/27/18 17:59> Results - Vital Signs Recent Vital Signs: Last Vital Signs Temp 97.8 F 10/25/18 12:00 Pulse 106 H 10/25/18 12:00 Resp 26 H 10/25/18 13:44 BP 85/51 L 10/25/18 12:00 Pulse Ox 96 10/25/18 12:00 - Labs Result Diagrams: 10/25/18 06:26 10/25/18 06:24 Attending/Attestation - Attestation I have personally seen and examined this patient.: Yes I have fully participated in the care of the patient.: Yes I have reviewed all pertinent clinical information: Yes Notes (Text): Pt was seen and examined at bedside Agree with above note and assessment Pt with vomiting and large Hiatal Hernia Abdomen : Soft, NT. No peritoneal signs Labs and Radiology reviewed Ass: Hiatal Hernia Plan : C/w current mx NT tube to LIS Echo in am Plan d/w GI physician and Pharmacy Delivery Driver Plan d.w pt's family in detail Risk and benefit explained in detail.
[2018-10-24] MEDS ORDERED: Labetalol 25mg/5ml Syringe IVP PRN (09:48)
--- NOTE | 2018-10-24 10:45 | CP.PCM.PN ---
<Gloria Collier - Last Filed: 10/24/18 13:51> Subjective - Subjective Subjective: Patient examined at bedside with daughter in room. Patient denies acute pain/discomfort. Patient is concerned as she wants to know why she experienced hematemesis with this episode of vomiting associated with her hernia, as she never has before. Patient was made aware of the treatment plan regarding normalization of her INR and then plans for EGD with GI. Patient understands and is in agreement. Denies complaints currently, including chest pain, palpitations, SOB, abdominal pain, nausea Objective - Vital Signs/Intake and Output Vital Signs (last 24 hours): Temp Pulse Resp BP Pulse Ox 98.1 F 97 H 22 165/95 H 94 L 10/24/18 08:00 10/24/18 08:04 10/24/18 08:00 10/24/18 08:00 10/24/18 08:00 - Medications Medications: Current Medications Pantoprazole Sodium 80 mg/ (Sodium Chloride) 100 mls @ 10 mls/hr IVP .Q10H CHASE Last Admin: 10/24/18 04:05 Dose: 10 mls/hr Sodium Chloride (Sodium Chloride 0.9%) 1,000 mls @ 50 mls/hr IV .Q20H CHASE Last Admin: 10/24/18 04:57 Dose: 50 mls/hr Piperacillin Sod/Tazobactam Sod (Zosyn 2.25 Gm Iv Premix) 2.25 gm in 50 mls @ 100 mls/hr IVPB Q6H CHASE; Protocol Labetalol HCl (Trandate) 5 mg IVP Q6H PRN PRN Reason: Systolic Blood Pressure Ondansetron HCl (Zofran Inj) 4 mg IVP Q4 PRN PRN Reason: Nausea/Vomiting Last Admin: 10/24/18 11:48 Dose: 4 mg - Labs Labs: 10/24/18 05:02 10/24/18 05:02 PT 30.6 SECONDS (9.7-12.2) H 10/24/18 05:02 INR 2.8 10/24/18 05:02 APTT 42 SECONDS (21-34) H 10/24/18 02:10 - Constitutional Appears: Non-toxic, No Acute Distress - Head Exam Head Exam: ATRAUMATIC, NORMOCEPHALIC - Eye Exam Eye Exam: EOMI, Normal appearance - ENT Exam ENT Exam: Mucous Membranes Moist. absent: Normal Exam Additional comments: NG tube in place with residual dark contents in tubing, not to suction - Neck Exam Neck Exam: Normal Inspection - Respiratory Exam Respiratory Exam: Clear to Ausculation Bilateral, NORMAL BREATHING PATTERN - Cardiovascular Exam Cardiovascular Exam: Tachycardia, REGULAR RHYTHM, Murmur - GI/Abdominal Exam GI & Abdominal Exam: Soft, Hypoactive Bowel Sounds. absent: Distended, Tenderness, Mass - Extremities Exam Extremities Exam: Normal Inspection. absent: Calf Tenderness, Pedal Edema - Neurological Exam Neurological Exam: Alert, Awake, Oriented x3 - Psychiatric Exam Psychiatric exam: Normal Affect, Normal Mood - Skin Skin Exam: Dry, Intact, Normal Color, Warm Assessment and Plan - Assessment and Plan (Free Text) Assessment: 83 year old female with pmhx of hiatal hernia, HTN, PE/DVT(on coumadin) admitted for evaluation of epigastric pain and hematemesis Plan: R/O ACS NSTEMI; troponin positive, trending down. 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 Bland Hematemesis, likely 2/[address] A/P(10/24): Intrathoracic hiatal hernia w/ GOO. Colonic diverticulosis -Antiemetic, zofran IV Q4h PRN -NG tube with dark contents -maintain on protonix drip -stool occult negative -EGD today with Dr. Cervantes to look for source of GI bleed -GI consult, Dr. Cervantes -CT Sx consult, Dr. Mitchell HTN -hold home meds, bisoprolol and losarten/HCTZ; pt is NPO -start labetalol 5mg IV q6h PRN Hypokalemia -repleted with K+ IV 20mEq -K+ 2.9 Hx of PE/DVT -home warfarin held 2/2 suspected GI bleed -stabilize INR w/ FFP x2 prior to EGD Ppx VTE ppx: AC contraindicated 2/2 suspected GI bleed, SCDs GI ppx: protonix drip Discussed with Dr. Solorio -Gloria Collier, PGY-1 <Guillaume Solorio - Last Filed: 10/25/18 13:00> Subjective - Date & Time of Evaluation Date of Evaluation: 10/24/18 Time of Evaluation: 10:40 - Subjective Subjective: Seen and examined at bedside,lying comfortable,no complain,no Sob NG tube clamped with coffee ground material stained NG tube Discussed with the RN. NG there was 250ml coffee ground material suctioned BP 165/100,pulse 101,pulse oxy 93% getting FFP,going for EGD spoke to her daughter at bedside. 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 She eats little at a time ti avoid reflux Objective - Vital Signs/Intake and Output Vital Signs (last 24 hours): Temp Pulse Resp BP Pulse Ox 98.1 F 97 H 22 165/95 H 94 L 10/24/18 08:00 10/24/18 08:04 10/24/18 08:00 10/24/18 08:00 10/24/18 08:00 - Medications Medications: Current Medications Pantoprazole Sodium 80 mg/ (Sodium Chloride) 100 mls @ 10 mls/hr IVP .Q10H CHASE Last Admin: 10/24/18 04:05 Dose: 10 mls/hr Potassium Chloride (Potassium Chloride 20 Meq/100 Ml) 20 meq in 100 mls @ 50 mls/hr IVPB DAILY CHASE Stop: 10/24/18 11:59 Last Admin: 10/24/18 09:39 Dose: 50 mls/hr Sodium Chloride (Sodium Chloride 0.9%) 1,000 mls @ 50 mls/hr IV .Q20H CHASE Last Admin: 10/24/18 04:57 Dose: 50 mls/hr Piperacillin Sod/Tazobactam Sod (Zosyn 2.25 Gm Iv Premix) 2.25 gm in 50 mls @ 100 mls/hr IVPB Q6H CHASE; Protocol Labetalol HCl (Trandate) 5 mg IVP Q6H PRN PRN Reason: Systolic Blood Pressure Ondansetron HCl (Zofran Inj) 4 mg IVP Q4 PRN PRN Reason: Nausea/Vomiting - Labs Labs: 10/24/18 05:02 01/31/19 05:02 PT 30.6 SECONDS (9.7-12.2) H 10/24/18 05:02 INR 2.8 10/24/18 05:02 APTT 42 SECONDS (21-34) H 10/24/18 02:10 - Constitutional Appears: Non-toxic, No Acute Distress - Head Exam Head Exam: absent: NORMAL INSPECTION (NG tube in place) - Eye Exam Eye Exam: Normal appearance - ENT Exam ENT Exam: Mucous Membranes Moist - Neck Exam Neck Exam: Full ROM - Respiratory Exam Respiratory Exam: Clear to Ausculation Bilateral, NORMAL BREATHING PATTERN - Cardiovascular Exam Cardiovascular Exam: REGULAR RHYTHM - GI/Abdominal Exam GI & Abdominal Exam: Soft, Hypoactive Bowel Sounds. absent: Distended, Tenderness - Extremities Exam Extremities Exam: Full ROM - Back Exam Back Exam: NORMAL INSPECTION - Neurological Exam Neurological Exam: Awake, Oriented x3 - Psychiatric Exam Psychiatric exam: Normal Affect, Normal Mood - Skin Skin Exam: Dry Assessment and Plan - Assessment and Plan (Free Text) Assessment: This is a 83 y/o female with past medical history of hiatal hernia, DVT/PE on coumadin, HTN who presented to the ED with complaints of non-radiating epigastric pain and vomiting for the past 2 days. However, during these past two days, the pain did not resolve with vomiting. Vomit advanced from food material, to liquid material, to some bright bloody material. She is not only vomiting dark, coffee ground material. Last bowel movement was 2 days ago, which was normal. Denies fever, chills, chest pain, palpitations, sob, diarrhea, urinary changes, numbness or tingling, headache, blurry vision, falls, trauma. Plan: GI Bleed/coffee ground vomting Pt is hemodynamically stable,NG tube in place/clamped NGT expressed 350 cc of coffee ground emesis on insertion by ED physician Possibly upper GI bleed; FOBT is negative Protonix gtt started,FFP x2 units, Vit k NPO Gastroenterology, Dr. Cervantes, consulted.Spoek to Dr Cervantes. planning to scope her. recommend to clamp NG to avoid bleeding Will scope this am Gastric outlet obstruction to chronic hiatal hernia/Retrocardiac stomach Abdominal CT with IV contrast shows complex rotated hernia. Retrocardiac stomach. Partial gastric outlet obstruction secondary to hernia. Pulmonary nodules. No signs of perforation; will f/u official reading. Mani [facility] Mitchell we will follow with surgery team STEMI, possibly due to demand ischemia Pt is hemodynamically stable ASA contraindicated due to acute GI bleed EKG shows NSR at 86, incomplete RBBB BNP is [address] Bland(Patient's private physician) spoke to Dr bland. patient had an out pt Echo in 2012 which was normal.As per him she was on chronic coumadin due to unprovoked PE/DVT and sedentary life Leukocytosis possible aspiration started on zosyn Pt afebrile,CT without infiltrate,has lung nodule.spoke to Dr Almanzar about preop pulmonary assessment Lactate is 2.6 but possibly due to decreased perfusion Hypokalemia repeat K level Will continue to replete potassium Will hydrate with IVF at 50 cc/hr Hyperglycemia on admission, likely reactive F/u HgbA1c Hx of HTN will hold home Losartan/HCTZ, Bisoprolol PRN Lopressor Hx of DVT/PE Coumadin on hold in setting of GI bleed PT/PTT/INR is 28.0/42/2.6 Will give vitamin K 10 mg IVP, 2 units of FFP GI ppx: Protonix gtt VTE PPX: contraindicated secondary to GI bleed NPO Attending/Attestation - Attestation I have personally seen and examined this patient.: Yes I have fully participated in the care of the patient.: Yes I have reviewed all pertinent clinical information, including history, physical exam and plan: Yes Notes (Text): Seen and examined with the patient in ICU bed 12. Patient is awake and resoponsive,denies pain,Daughter and son at bedside family spoke to Dr bland and DR Cervantes I spoke to the family in length about her condition.Her chest x ray looks congested and aspiration pneumonia. she is hypoxic on high flow oxygen. Her blood pressure low and her fluids discontinued due to congestion. d/w Dr Bland. fluids stopped. d/w family about starting on pressors and getting a central line. after discussion her family decided for comfort measures only,not invasive procedures. Agreed fro morphine drip prn if she develop discomfort
--- NOTE | 2018-10-24 10:56 | RAD ---
Date of service: 10/23/2018 PROCEDURE: CHEST RADIOGRAPH, 1 VIEW HISTORY: abd pain COMPARISON: None available. FINDINGS: LUNGS: Lung volumes lower limits of normal. An approximately 2 mm nodular opacity over the mid right lung zone is noted a pulmonary mass here needs to be considered. CT of the chest recommended for further evaluation. Is diffuse vague increased opacity throughout both lungs and a mild diffuse interstitial pulmonary edema process is 1 consideration. Other causes for abnormal interstitial lung markings are also possible. PLEURA: No pneumothorax. Small left pleural effusion suggested CARDIOVASCULAR: No aortic atherosclerotic calcification present. Cardiomegaly. OSSEOUS STRUCTURES: Bilateral shoulder arthrosis. The asymmetrical sclerotic changes over the right humeral head also can be seen with an associated avascular necrosis. VISUALIZED UPPER ABDOMEN: Normal. OTHER FINDINGS: Projecting over the heart is a air-fluid level the with is at least 14 cm a large hiatal hernia projecting centrally over the heart is compatible with this. IMPRESSION: No subdiaphragmatic free air appreciated on this exam. Cardiomegaly and diffuse pulmonary interstitial edema suspect. Some mass effect on the right ventricle is 1 consideration given the massive hiatal hernia suggested. Clinical follow-up recommended. Minimal left pleural effusion suggested Right mid lung zone nodular opacity primary and/or secondary pulmonary neoplastic lesions need to be considered. Consider noncontrast CT chest is recommended for further evaluation. Comments: Study marked for PA review .
--- NOTE | 2018-10-24 11:18 | CP.PCM.CON ---
History of Present Illness - History of Present Illness History of Present Illness: Cardiothoracic Surgery Consult for Dr. Mitchell Consult: Gastric outlet obstruction CC: Hematemesis HPI: 83F presented to the emergency department with bilious and bloody vomiting since Sunday. Patient's family at bedside providing history. Patient has known hiatal hernia and with overeating experiences nausea and vomiting that usually resolves however this time patient continued to vomit until family noticed blood. She has never experienced such severe symptoms before. Unable to tolerate PO intake at this time. States she is having some shortness of breath. Denies nausea, diarrhea, or constipation. Last bowel movement was Sunday, normal per patient. In ED, NGT placed by ER physician with 200cc of bilious output. Last E GD and colonoscopy 10 years ago, states normal. Denies fever, chills, chest pain, palpitations, headaches, dizziness, or urinary symptoms. 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) and HTN PSH: Appendectomy, IVC filter FH: Noncontributory SH: Denies tobacco, alcohol, drugs ALL: NKDA Meds: See MAR Review of Systems - Review of Systems All systems: reviewed and no additional remarkable complaints except (as per HPI) Past Patient History - Past Social History Smoking Status: Never Smoked - CARDIAC Hx Hypertension: Yes - PULMONARY Hx Pulmonary Embolism: Yes - HEENT Hx HEENT Problems: No - RENAL Hx Chronic Kidney Disease: No - ENDOCRINE/METABOLIC Hx Endocrine Disorders: No - HEMATOLOGICAL/ONCOLOGICAL Hx Blood Disorders: No - INTEGUMENTARY Hx Dermatological Problems: No - MUSCULOSKELETAL/RHEUMATOLOGICAL Hx Musculoskeletal Disorders: No Hx Falls: No - GASTROINTESTINAL Hx Gastrointestinal Disorders: No - GENITOURINARY/GYNECOLOGICAL Hx Genitourinary Disorders: No - PSYCHIATRIC Hx Psychophysiologic Disorder: No Hx Substance Use: No - SURGICAL HISTORY Hx Appendectomy: Yes (13 years old) Other/Comment: IVC filter on 2000 - ANESTHESIA Hx Anesthesia: Yes Hx Anesthesia Reactions: No Hx Malignant Hyperthermia: No Has any member of the family had a problem w/ anesthesia?: No Meds Allergies/Adverse Reactions: Allergies Allergy/AdvReac Type Severity Reaction Status Date / Time No Known Allergies Allergy Unverified 10/23/18 23:21 - Medications Medications: Current Medications Pantoprazole Sodium 80 mg/ (Sodium Chloride) 100 mls @ 10 mls/hr IVP .Q10H [facility] Last Admin: 10/24/18 04:05 Dose: 10 mls/hr Potassium Chloride (Potassium Chloride 20 Meq/100 Ml) 20 meq in 100 mls @ 50 mls/hr IVPB DAILY [facility] Stop: 10/24/18 11:59 Last Admin: 10/24/18 09:39 Dose: 50 mls/hr Sodium Chloride (Sodium Chloride 0.9%) 1,000 mls @ 50 mls/hr IV .Q20H [facility] Last Admin: 10/24/18 04:57 Dose: 50 mls/hr Piperacillin Sod/Tazobactam Sod (Zosyn 2.25 Gm Iv Premix) 2.25 gm in 50 mls @ 100 mls/hr IVPB Q6H [facility]; Protocol Labetalol HCl (Trandate) 5 mg IVP Q6H PRN PRN Reason: Systolic Blood Pressure Ondansetron HCl (Zofran Inj) 4 mg IVP Q4 PRN PRN Reason: Nausea/Vomiting Physical Exam - Constitutional Appears: Non-toxic, No Acute Distress - Head Exam Head Exam: ATRAUMATIC, NORMOCEPHALIC - Eye Exam Eye Exam: EOMI. absent: Scleral icterus - ENT Exam Additional comments: NGT in place - Neck Exam Neck exam: Negative for: Tenderness - Respiratory Exam Respiratory Exam: NORMAL BREATHING PATTERN. absent: Accessory Muscle Use, Respiratory Distress - Cardiovascular Exam Cardiovascular Exam: REGULAR RHYTHM, +S1, +S2 - GI/Abdominal Exam GI & Abdominal Exam: Soft. absent: Distended, Firm, Guarding, Rebound, Rigid, Tenderness - Rectal Exam Rectal Exam: Deferred - Extremities Exam Extremities exam: Positive for: normal capillary refill. Negative for: calf tenderness - Back Exam Back exam: absent: CVA tenderness (L), CVA tenderness (R) - Neurological Exam Neurological exam: Alert, Oriented x3 - Skin Skin Exam: Dry, Warm Results - Vital Signs Recent Vital Signs: Last Vital Signs Temp 98.1 F 10/24/18 08:00 Pulse 97 H 10/24/18 08:04 Resp 22 10/24/18 08:00 BP 165/95 H 10/24/18 08:00 Pulse Ox 94 L 10/24/18 08:00 - Labs Result Diagrams: 10/24/18 05:02 10/24/18 05:02 Labs: Laboratory Results - last 24 hr 10/23/18 10/23/18 10/23/18 23:32 23:32 23:50 WBC 14.7 H D RBC 5.58 H Hgb 17.0 H D Hct 50.4 H MCV 90.2 MCH 30.5 MCHC 33.8 RDW 13.4 Plt Count 304 MPV 8.5 Neut % (Auto) 85.8 H Lymph % (Auto) 8.6 L [place] % (Auto) 5.5 Eos % (Auto) 0.0 Baso % (Auto) 0.1 Neut # (Auto) 12.6 H Lymph # (Auto) 1.3 [place] # (Auto) 0.8 Eos # (Auto) 0.0 Baso # (Auto) 0.0 Neutrophils % (Manual) 82 H Band Neutrophils % 2 Lymphocytes % (Manual) 11 L Monocytes % (Manual) 5 Platelet Estimate Normal PT INR APTT pO2 VBG pH VBG pCO2 VBG HCO3 VBG Total CO2 VBG O2 Sat (Calc) VBG Base Excess VBG Potassium Glucose Lactate Sodium 140 Potassium 2.7 L Chloride 88 L Carbon Dioxide 37 H Anion Gap 17 BUN 43 H Creatinine 1.1 Est GFR ( Amer) 57 Est GFR (Non-Af Amer) 47 Random Glucose 243 H D Hemoglobin A1c Calcium 9.9 Phosphorus Magnesium Total Bilirubin 0.7 AST 63 H ALT 20 Alkaline Phosphatase 80 Total Creatine Kinase CK-MB (Mass) Troponin I 0.2240 H* NT-Pro-B Natriuret Pep 3110 H Total Protein 9.5 H Albumin 4.8 Globulin 4.7 H Albumin/Globulin Ratio 1.0 Lipase 112 Venous Blood Potassium Stool Occult Blood Blood Type Blood Type Confirm Antibody Screen 10/24/18 10/24/18 10/24/18 00:35 01:18 01:47 WBC RBC Hgb Hct MCV MCH MCHC RDW Plt Count MPV Neut % (Auto) Lymph % (Auto) [place] % (Auto) Eos % (Auto) Baso % (Auto) Neut # (Auto) Lymph # (Auto) [place] # (Auto) Eos # (Auto) Baso # (Auto) Neutrophils % (Manual) Band Neutrophils % Lymphocytes % (Manual) Monocytes % (Manual) Platelet Estimate PT INR APTT pO2 31 VBG pH 7.49 H VBG pCO2 57 VBG HCO3 37.3 VBG Total CO2 45.1 H VBG O2 Sat (Calc) 58.5 VBG Base Excess 17.0 H VBG Potassium 2.8 L Glucose 206 H Lactate 2.6 H Sodium 142.0 Potassium Chloride 94.0 L Carbon Dioxide Anion Gap BUN Creatinine Est GFR ( Amer) Est GFR (Non-Af Amer) Random Glucose Hemoglobin A1c Calcium Phosphorus Magnesium Total Bilirubin AST ALT Alkaline Phosphatase Total Creatine Kinase CK-MB (Mass) Troponin I NT-Pro-B Natriuret Pep Total Protein Albumin Globulin Albumin/Globulin Ratio Lipase Venous Blood Potassium 2.8 L Stool Occult Blood Negative Blood Type A POSITIVE Blood Type Confirm A POSITIVE Antibody Screen Negative 10/24/18 10/24/18 10/24/18 02:10 03:16 05:02 WBC 15.5 H RBC 5.60 H Hgb 16.6 H Hct 50.9 H MCV 90.9 MCH 29.7 MCHC 32.7 L RDW 13.8 Plt Count 262 MPV 8.7 Neut % (Auto) 89.1 H Lymph % (Auto) 4.3 L [place] % (Auto) 5.7 Eos % (Auto) 0.0 Baso % (Auto) 0.9 Neut # (Auto) 13.8 H Lymph # (Auto) 0.7 L [place] # (Auto) 0.9 H Eos # (Auto) 0.0 Baso # (Auto) 0.1 Neutrophils % (Manual) 85 H Band Neutrophils % 2 Lymphocytes % (Manual) 9 L Monocytes % (Manual) 4 Platelet Estimate Normal PT 28.0 H INR 2.6 APTT 42 H pO2 VBG pH VBG pCO2 VBG HCO3 VBG Total CO2 VBG O2 Sat (Calc) VBG Base Excess VBG Potassium Glucose Lactate Sodium Potassium Chloride Carbon Dioxide Anion Gap BUN Creatinine Est GFR ( Amer) Est GFR (Non-Af Amer) Random Glucose Hemoglobin A1c Calcium Phosphorus 4.4 Magnesium 1.7 Total Bilirubin AST ALT Alkaline Phosphatase Total Creatine Kinase CK-MB (Mass) Troponin I NT-Pro-B Natriuret Pep Total Protein Albumin Globulin Albumin/Globulin Ratio Lipase Venous Blood Potassium Stool Occult Blood Blood Type Blood Type Confirm Antibody Screen 10/24/18 10/24/18 10/24/18 05:02 05:02 05:02 WBC RBC Hgb Hct MCV MCH MCHC RDW Plt Count MPV Neut % (Auto) Lymph % (Auto) [place] % (Auto) Eos % (Auto) Baso % (Auto) Neut # (Auto) Lymph # (Auto) [place] # (Auto) Eos # (Auto) Baso # (Auto) Neutrophils % (Manual) Band Neutrophils % Lymphocytes % (Manual) Monocytes % (Manual) Platelet Estimate PT 30.6 H INR 2.8 APTT pO2 VBG pH VBG pCO2 VBG HCO3 VBG Total CO2 VBG O2 Sat (Calc) VBG Base Excess VBG Potassium Glucose Lactate Sodium 141 Potassium 2.9 L Chloride 91 L Carbon Dioxide 40 H* Anion Gap 14 BUN 46 H Creatinine 1.2 Est GFR ( Amer) 52 Est GFR (Non-Af Amer) 43 Random Glucose 158 H D Hemoglobin A1c 5.7 Calcium 9.5 Phosphorus 4.2 Magnesium 1.8 Total Bilirubin 0.7 AST 56 H ALT 19 Alkaline Phosphatase 73 Total Creatine Kinase CK-MB (Mass) Troponin I NT-Pro-B Natriuret Pep Total Protein 8.8 H Albumin 4.5 Globulin 4.4 H Albumin/Globulin Ratio 1.0 Lipase Venous Blood Potassium Stool Occult Blood Blood Type Blood Type Confirm Antibody Screen 10/24/18 05:44 WBC RBC Hgb Hct MCV MCH MCHC RDW Plt Count MPV Neut % (Auto) Lymph % (Auto) [place] % (Auto) Eos % (Auto) Baso % (Auto) Neut # (Auto) Lymph # (Auto) [place] # (Auto) Eos # (Auto) Baso # (Auto) Neutrophils % (Manual) Band Neutrophils % Lymphocytes % (Manual) Monocytes % (Manual) Platelet Estimate PT INR APTT pO2 VBG pH VBG pCO2 VBG HCO3 VBG Total CO2 VBG O2 Sat (Calc) VBG Base Excess VBG Potassium Glucose Lactate Sodium Potassium Chloride Carbon Dioxide Anion Gap BUN Creatinine Est GFR ( Amer) Est GFR (Non-Af Amer) Random Glucose Hemoglobin A1c Calcium Phosphorus Magnesium Total Bilirubin AST ALT Alkaline Phosphatase Total Creatine Kinase 439 H CK-MB (Mass) 5.44 H Troponin I 0.1680 H* NT-Pro-B Natriuret Pep Total Protein Albumin Globulin Albumin/Globulin Ratio Lipase Venous Blood Potassium Stool Occult Blood Blood Type Blood Type Confirm Antibody Screen - Imaging and Cardiology CT scan - abdomen Status: Image reviewed by me, Report reviewed by me Assessment & Plan - Assessment and Plan (Free Text) Assessment: 83F with Hiatal hernia (Type 4) w/ decompressed bowel distally, no evidence of free air or ischemic changes Plan: NGT in place EGD today to evaluate bleeding, follow up results NPO Needs cardio/pulm evals Recommend planning for robotic repair CT Chest to evaluate full extent of hernia superiorly D/W Dr. Paula Gomez PGY4
--- NOTE | 2018-10-24 12:20 | CT ---
Date of service: 10/24/2018 PROCEDURE: CT Abdomen and Pelvis with and without intravenous contrast HISTORY: abd pain COMPARISON: None. TECHNIQUE: Axial images of the abdomen were obtained in the pre contrast, portal venous and delayed phases of enhancement. Coronal and sagittal reformats were generated. Contrast dose: Radiation dose: Total exam DLP = 1050.44 mGy-cm. This CT exam was performed using one or more of the following dose reduction techniques: Automated exposure control, adjustment of the mA and/or kV according to patient size, and/or use of iterative reconstruction technique. FINDINGS: LOWER THORAX: Intra thoracic stomach/hiatal hernia with gastric outlet obstruction. LIVER: Unremarkable. No gross lesion or ductal dilatation. GALLBLADDER AND BILE DUCTS: Unremarkable. PANCREAS: Unremarkable. No gross lesion or ductal dilatation. SPLEEN: Unremarkable. ADRENALS: Unremarkable. No mass. KIDNEYS AND URETERS: Unremarkable. No hydronephrosis. No solid mass. VASCULATURE: Unremarkable. No aortic aneurysm. No aortic atherosclerotic calcification or mural plaque present. BOWEL: Colonic diverticulosis. No obstruction. No gross mural thickening. APPENDIX: Normal appendix. PERITONEUM: Unremarkable. No free fluid. No free air. LYMPH NODES: Unremarkable. No enlarged lymph nodes. BLADDER: Unremarkable. REPRODUCTIVE: Calcified fibroid uterus. Pessary in place. BONES: No acute fracture. OTHER FINDINGS: None. IMPRESSION: Intra thoracic stomach/hiatal hernia with gastric outlet obstruction. Colonic diverticulosis.
[2018-10-24] MEDS: Piperacill/Tazo 2.25gm in Dex 2.25 GM/50 ML BAG IVPB SCH ×2 (12:21→16:32)
[2018-10-24 12:55] LABS: CK-MB 6.49 ng/mL (0.0-3.38); TROPONIN I 0.124 ng/mL (0.00-0.120)
[2018-10-24] MEDS ORDERED: Etomidate 20 mg/10ml Inj IV ONE (13:41)
--- NOTE | 2018-10-24 14:41 | CP.PCM.PCO ---
Physician Communication Note - Physician Communication Note Physician Communication Note: see above
[2018-10-24] MEDS ORDERED: Labetalol 5mg/ml (4ml) IVP PRN ×2 (15:15→15:57)
--- NOTE | 2018-10-24 15:43 | RAD ---
Date of service: 10/24/2018 HISTORY: NGT placement COMPARISON: 10/23/2018 FINDINGS: LUNGS: The 2 cm right pulmonary suspect nodular mass is similar in appearance Right infra hilar compressive atelectatic changes subsegmental associated with an inferred large hiatal hernia PLEURA: No significant pleural effusion identified small left pleural effusion inferred. Probable small right pleural effusion now also suggested., no pneumothorax apparent. CARDIOVASCULAR: No aortic atherosclerotic calcification present. Cardiomegaly-similar probable mild concomitant pulmonary venous congestion. OSSEOUS STRUCTURES: No significant abnormalities. S-shaped thoracolumbar scoliosis. Right shoulder arthrosis with subchondral sclerosis-superimposed avascular necrosis here a consideration. VISUALIZED UPPER ABDOMEN: Normal. OTHER FINDINGS: Interval insertion of an NG tube its course projects in the left upper abdomen. Most of the stomach is believed supradiaphragmatic. Position the GE junction is not known. Consider GI consultation if not already obtained. No subdiaphragmatic free air seen. IVC filter partly visualized. Partially visualize is bilateral contrast each renal collecting system. IMPRESSION: Interval insertion NG tube tip left upper abdomen the tip in relationship to the large mostly intrathoracic hiatal hernia is indeterminate. No subdiaphragmatic free air seen. Right pulmonary nodule 2 cm neoplastic origin suspect. Consider follow-up CT chest noncontrast Other findings as above. Comments: Study marked for PA review .
[2018-10-24] MEDS ORDERED: Dextrose 5%/Lactated Ringer's 1,000 ML IV SCH (16:00)
[2018-10-24] MEDS ORDERED: DEXTROSE IV SCH (16:02)
[2018-10-24] MEDS ORDERED: LACTATED RINGER S IV SCH (16:02)
[2018-10-24] MEDS ORDERED: POTASSIUM CHLORIDE IV SCH (16:02)
--- NOTE | 2018-10-24 16:07 | CP.PCM.CON ---
History of Present Illness - History of Present Illness History of Present Illness: GI Consult Note for Dr. 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 Patient vomited several times which began after she last ate 2 days ago consisting of dark coffee ground material and food that she ate such as beans and pork. Patient's vomit sometimes was bright and bloody. Patient denies taking NSAIDs because she is on Coumadin. Also denies taking peptol bismol. Patient vomited after being admitted coffee ground emesis. Denies fever, chills, SOB, nausea. Abdominal pain resolved by the time of encounter. Patient's last BM was 2 days ago, and it was unremarkable. PMHx: as stated above PSHx: appy, IVC filter FHx: DM and HTN SocHx: denies x 3 Meds: coumadin 3 mg PO qhs, losartan HCTZ 100/25 PO qhs, bisoprolol 5 mg qhs, ranitidine 20 mg every morning 15 min before breakfast Allergies: NKDA Past Patient History - Past Social History Smoking Status: Never Smoked - CARDIAC Hx Hypertension: Yes - PULMONARY Hx Pulmonary Embolism: Yes - HEENT Hx HEENT Problems: No - RENAL Hx Chronic Kidney Disease: No - ENDOCRINE/METABOLIC Hx Endocrine Disorders: No - HEMATOLOGICAL/ONCOLOGICAL Hx Blood Disorders: No - INTEGUMENTARY Hx Dermatological Problems: No - MUSCULOSKELETAL/RHEUMATOLOGICAL Hx Musculoskeletal Disorders: No Hx Falls: No - GASTROINTESTINAL Hx Gastrointestinal Disorders: No - GENITOURINARY/GYNECOLOGICAL Hx Genitourinary Disorders: No - PSYCHIATRIC Hx Psychophysiologic Disorder: No Hx Substance Use: No - SURGICAL HISTORY Hx Appendectomy: Yes (13 years old) Other/Comment: IVC filter on 2000 - ANESTHESIA Hx Anesthesia: Yes Hx Anesthesia Reactions: No Hx Malignant Hyperthermia: No Has any member of the family had a problem w/ anesthesia?: No Meds Allergies/Adverse Reactions: Allergies Allergy/AdvReac Type Severity Reaction Status Date / Time No Known Allergies Allergy Unverified 10/23/18 23:21 - Medications Medications: Current Medications Pantoprazole Sodium 80 mg/ (Sodium Chloride) 100 mls @ 10 mls/hr IVP .Q10H [facility] Last Admin: 10/24/18 12:24 Dose: 10 mls/hr Piperacillin Sod/Tazobactam Sod (Zosyn 2.25 Gm Iv Premix) 2.25 gm in 50 mls @ 100 mls/hr IVPB Q6H [facility]; Protocol Last Admin: 10/24/18 12:21 Dose: 100 mls/hr Metronidazole (Flagyl) 500 mg in 100 mls @ 100 mls/hr IVPB Q8H [facility]; Protocol Dextrose/Lactated Ringer's (Dextrose 5%/Lactated Ringer's) 1,000 mls @ 100 mls/hr IV .Q10H [facility] Labetalol HCl (Trandate) 5 mg IVP Q6H PRN PRN Reason: Systolic Blood Pressure Metoclopramide HCl (Reglan) 5 mg IVP Q6H [facility] Last Admin: 10/24/18 15:02 Dose: 5 mg Physical Exam - Constitutional Appears: Well, Non-toxic - Head Exam Head Exam: ATRAUMATIC, NORMAL INSPECTION - Eye Exam Eye Exam: EOMI, Normal appearance - ENT Exam ENT Exam: Normal Exam - Neck Exam Neck exam: Positive for: Normal Inspection - Respiratory Exam Respiratory Exam: Clear to Auscultation Bilateral, NORMAL BREATHING PATTERN - Cardiovascular Exam Cardiovascular Exam: REGULAR RHYTHM - GI/Abdominal Exam GI & Abdominal Exam: Normal Bowel Sounds, Soft. absent: Firm, Guarding - Extremities Exam Extremities exam: Positive for: normal inspection. Negative for: calf tenderness - Neurological Exam Neurological exam: Alert, Oriented x3 - Psychiatric Exam Psychiatric exam: Normal Affect, Normal Mood - Skin Skin Exam: Dry, Intact, Normal Color, Warm Results - Vital Signs Recent Vital Signs: Last Vital Signs Temp 98.1 F 10/24/18 08:00 Pulse 97 H 10/24/18 08:04 Resp 22 10/24/18 08:00 BP 165/95 H 10/24/18 08:00 Pulse Ox 94 L 10/24/18 08:00 - Labs Result Diagrams: 10/24/18 05:02 10/24/18 12:21 Labs: Laboratory Results - last 24 hr 10/23/18 10/23/18 10/23/18 23:32 23:32 23:50 WBC 14.7 H D RBC 5.58 H Hgb 17.0 H D Hct 50.4 H MCV 90.2 MCH 30.5 MCHC 33.8 RDW 13.4 Plt Count 304 MPV 8.5 Neut % (Auto) 85.8 H Lymph % (Auto) 8.6 L [place] % (Auto) 5.5 Eos % (Auto) 0.0 Baso % (Auto) 0.1 Neut # (Auto) 12.6 H Lymph # (Auto) 1.3 [place] # (Auto) 0.8 Eos # (Auto) 0.0 Baso # (Auto) 0.0 Neutrophils % (Manual) 82 H Band Neutrophils % 2 Lymphocytes % (Manual) 11 L Monocytes % (Manual) 5 Platelet Estimate Normal PT INR APTT pO2 VBG pH VBG pCO2 VBG HCO3 VBG Total CO2 VBG O2 Sat (Calc) VBG Base Excess VBG Potassium Glucose Lactate Sodium 140 Potassium 2.7 L Chloride 88 L Carbon Dioxide 37 H Anion Gap 17 BUN 43 H Creatinine 1.1 Est GFR ( Amer) 57 Est GFR (Non-Af Amer) 47 Random Glucose 243 H D Hemoglobin A1c Calcium 9.9 Phosphorus Magnesium Total Bilirubin 0.7 AST 63 H ALT 20 Alkaline Phosphatase 80 Total Creatine Kinase CK-MB (Mass) Troponin I 0.2240 H* NT-Pro-B Natriuret Pep 3110 H Total Protein 9.5 H Albumin 4.8 Globulin 4.7 H Albumin/Globulin Ratio 1.0 Lipase 112 Venous Blood Potassium Stool Occult Blood Blood Type Blood Type Confirm Antibody Screen 10/24/18 10/24/18 10/24/18 00:35 01:18 01:47 WBC RBC Hgb Hct MCV MCH MCHC RDW Plt Count MPV Neut % (Auto) Lymph % (Auto) [place] % (Auto) Eos % (Auto) Baso % (Auto) Neut # (Auto) Lymph # (Auto) [place] # (Auto) Eos # (Auto) Baso # (Auto) Neutrophils % (Manual) Band Neutrophils % Lymphocytes % (Manual) Monocytes % (Manual) Platelet Estimate PT INR APTT pO2 31 VBG pH 7.49 H VBG pCO2 57 VBG HCO3 37.3 VBG Total CO2 45.1 H VBG O2 Sat (Calc) 58.5 VBG Base Excess 17.0 H VBG Potassium 2.8 L Glucose 206 H Lactate 2.6 H Sodium 142.0 Potassium Chloride 94.0 L Carbon Dioxide Anion Gap BUN Creatinine Est GFR ( Amer) Est GFR (Non-Af Amer) Random Glucose Hemoglobin A1c Calcium Phosphorus Magnesium Total Bilirubin AST ALT Alkaline Phosphatase Total Creatine Kinase CK-MB (Mass) Troponin I NT-Pro-B Natriuret Pep Total Protein Albumin Globulin Albumin/Globulin Ratio Lipase Venous Blood Potassium 2.8 L Stool Occult Blood Negative Blood Type A POSITIVE Blood Type Confirm A POSITIVE Antibody Screen Negative 10/24/18 10/24/18 10/24/18 02:10 03:16 05:02 WBC 15.5 H RBC 5.60 H Hgb 16.6 H Hct 50.9 H MCV 90.9 MCH 29.7 MCHC 32.7 L RDW 13.8 Plt Count 262 MPV 8.7 Neut % (Auto) 89.1 H Lymph % (Auto) 4.3 L [place] % (Auto) 5.7 Eos % (Auto) 0.0 Baso % (Auto) 0.9 Neut # (Auto) 13.8 H Lymph # (Auto) 0.7 L [place] # (Auto) 0.9 H Eos # (Auto) 0.0 Baso # (Auto) 0.1 Neutrophils % (Manual) 85 H Band Neutrophils % 2 Lymphocytes % (Manual) 9 L Monocytes % (Manual) 4 Platelet Estimate Normal PT 28.0 H INR 2.6 APTT 42 H pO2 VBG pH VBG pCO2 VBG HCO3 VBG Total CO2 VBG O2 Sat (Calc) VBG Base Excess VBG Potassium Glucose Lactate Sodium Potassium Chloride Carbon Dioxide Anion Gap BUN Creatinine Est GFR ( Amer) Est GFR (Non-Af Amer) Random Glucose Hemoglobin A1c Calcium Phosphorus 4.4 Magnesium 1.7 Total Bilirubin AST ALT Alkaline Phosphatase Total Creatine Kinase CK-MB (Mass) Troponin I NT-Pro-B Natriuret Pep Total Protein Albumin Globulin Albumin/Globulin Ratio Lipase Venous Blood Potassium Stool Occult Blood Blood Type Blood Type Confirm Antibody Screen 10/24/18 10/24/18 10/24/18 05:02 05:02 05:02 WBC RBC Hgb Hct MCV MCH MCHC RDW Plt Count MPV Neut % (Auto) Lymph % (Auto) [place] % (Auto) Eos % (Auto) Baso % (Auto) Neut # (Auto) Lymph # (Auto) [place] # (Auto) Eos # (Auto) Baso # (Auto) Neutrophils % (Manual) Band Neutrophils % Lymphocytes % (Manual) Monocytes % (Manual) Platelet Estimate PT 30.6 H INR 2.8 APTT pO2 VBG pH VBG pCO2 VBG HCO3 VBG Total CO2 VBG O2 Sat (Calc) VBG Base Excess VBG Potassium Glucose Lactate Sodium 141 Potassium 2.9 L Chloride 91 L Carbon Dioxide 40 H* Anion Gap 14 BUN 46 H Creatinine 1.2 Est GFR ( Amer) 52 Est GFR (Non-Af Amer) 43 Random Glucose 158 H D Hemoglobin A1c 5.7 Calcium 9.5 Phosphorus 4.2 Magnesium 1.8 Total Bilirubin 0.7 AST 56 H ALT 19 Alkaline Phosphatase 73 Total Creatine Kinase CK-MB (Mass) Troponin I NT-Pro-B Natriuret Pep Total Protein 8.8 H Albumin 4.5 Globulin 4.4 H Albumin/Globulin Ratio 1.0 Lipase Venous Blood Potassium Stool Occult Blood Blood Type Blood Type Confirm Antibody Screen 10/24/18 10/24/18 05:44 12:21 WBC RBC Hgb Hct MCV MCH MCHC RDW Plt Count MPV Neut % (Auto) Lymph % (Auto) [place] % (Auto) Eos % (Auto) Baso % (Auto) Neut # (Auto) Lymph # (Auto) [place] # (Auto) Eos # (Auto) Baso # (Auto) Neutrophils % (Manual) Band Neutrophils % Lymphocytes % (Manual) Monocytes % (Manual) Platelet Estimate PT INR APTT pO2 VBG pH VBG pCO2 VBG HCO3 VBG Total CO2 VBG O2 Sat (Calc) VBG Base Excess VBG Potassium Glucose Lactate Sodium Potassium 2.9 L Chloride Carbon Dioxide Anion Gap BUN Creatinine Est GFR ( Amer) Est GFR (Non-Af Amer) Random Glucose Hemoglobin A1c Calcium Phosphorus Magnesium Total Bilirubin AST ALT Alkaline Phosphatase Total Creatine Kinase 439 H 447 H CK-MB (Mass) 5.44 H 6.49 H Troponin I 0.1680 H* 0.1240 H* NT-Pro-B Natriuret Pep Total Protein Albumin Globulin Albumin/Globulin Ratio Lipase Venous Blood Potassium Stool Occult Blood Blood Type Blood Type Confirm Antibody Screen Assessment & Plan - Assessment and Plan (Free Text) Assessment: 83 y/o female with PMHx of stage 4 hiatal hernia, 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 GI bleed -pt hemodynamically stable -upper endoscopy 10/24 postponed mid procedure due to risk of aspiration (see endoscopy report). Rescheduled for 8am tomorrow, 2/1 -FOBT negative and coffee ground emesis, possibly upper GI bleed. Pending endoscopy. -continue with protonix gtt -continue with NPO -per Dr. Cervantes, metoclopramide 5 mg standing, flagyl 500 mg IV q8h added, FFP x 2 added, and continue with NGT low intermittent suctioning Gastric outlet obstruction -possible that there is a mass on inferior aspect of stomach that was not seen today in endoscopy due to excess gastric contents (see endoscopy report) vs. chronic hiatal hernia. -General surgery consulted, appreciate recs -Cardiothoracic surgery consulted, appreciate recs DVT ppx: hold coumadin due to GI bleed GI ppx: protonix GTT Diet: NPO case discussed with Dr. Billy Love PGY1
--- NOTE | 2018-10-24 16:15 | CP.PCM.CON ---
History of Present Illness - History of Present Illness History of Present Illness: 83 y/o female with type 4 hiatal hernia, CVTs on coumadin s/p IVC filter and HTN admitted for bilious and bloody vomiting x 3 days. 3F presented to the emergency department with bilious and bloody vomiting since Sunday. Patient's family at bedside providing history. Patient has known hiatal hernia and with overeating experiences nausea and vomiting that usually resolves however this time patient continued to vomit until family noticed blood. She has never experienced such severe symptoms before.. States she is having some shortness of breath. Denies nausea, diarrhea, or constipation. In ED, NGT placed by ER physician with 200cc of bilious output. Last EGD and colonoscopy 10 years ago, states normal. Patient's emergent upper endoscopy today 10/24 postponed. During the procedure, patient persistently vomited dark gastric contents. Per Dr. Cervantes, procedure had to be terminated due to high risk of aspiration. Endoscope advanced only up to the pyloric area. Reglan 10 mg IVP STAT placed and patient brought back to the ICU (on telemetry status). Pt saw me in the office for two or three visits in 2012. Pt had had PE in 2009, etiology unknown. As the cause of PE ws not known, pt elected to continue coumadin, but she never followed up after that. Pt had an echo with normal LV EF at that time. ECG is normal but there is a persistent tni elevation, max .22. Review of Systems - Constitutional Constitutional: As Per HPI Past Patient History - Past Social History Smoking Status: Never Smoked - CARDIAC Hx Hypertension: Yes - PULMONARY Hx Pulmonary Embolism: Yes - HEENT Hx HEENT Problems: No - RENAL Hx Chronic Kidney Disease: No - ENDOCRINE/METABOLIC Hx Endocrine Disorders: No - HEMATOLOGICAL/ONCOLOGICAL Hx Blood Disorders: No - INTEGUMENTARY Hx Dermatological Problems: No - MUSCULOSKELETAL/RHEUMATOLOGICAL Hx Musculoskeletal Disorders: No Hx Falls: No - GASTROINTESTINAL Hx Gastrointestinal Disorders: No - GENITOURINARY/GYNECOLOGICAL Hx Genitourinary Disorders: No - PSYCHIATRIC Hx Psychophysiologic Disorder: No Hx Substance Use: No - SURGICAL HISTORY Hx Appendectomy: Yes (13 years old) Other/Comment: IVC filter on 2000 - ANESTHESIA Hx Anesthesia: Yes Hx Anesthesia Reactions: No Hx Malignant Hyperthermia: No Has any member of the family had a problem w/ anesthesia?: No Meds Allergies/Adverse Reactions: Allergies Allergy/AdvReac Type Severity Reaction Status Date / Time No Known Allergies Allergy Unverified 10/23/18 23:21 - Medications Medications: Current Medications Pantoprazole Sodium 80 mg/ (Sodium Chloride) 100 mls @ 10 mls/hr IVP .Q10H [facility] Last Admin: 10/24/18 12:24 Dose: 10 mls/hr Piperacillin Sod/Tazobactam Sod (Zosyn 2.25 Gm Iv Premix) 2.25 gm in 50 mls @ 100 mls/hr IVPB Q6H [facility]; Protocol Last Admin: 10/24/18 12:21 Dose: 100 mls/hr Metronidazole (Flagyl) 500 mg in 100 mls @ 100 mls/hr IVPB Q8H [facility]; Protocol Potassium Chloride 10 meq/ (Dextrose/Lactated Ringer's) 1,005 mls @ 100 mls/hr IV .Q10H3M [facility] Labetalol HCl (Trandate) 5 mg IVP Q6H PRN PRN Reason: Systolic Blood Pressure Metoclopramide HCl (Reglan) 5 mg IVP Q6H [facility] Last Admin: 10/24/18 15:02 Dose: 5 mg Physical Exam - Constitutional Appears: Other (Lethargic) - Head Exam Head Exam: ATRAUMATIC, NORMAL INSPECTION - Eye Exam Eye Exam: EOMI - ENT Exam ENT Exam: Mucous Membranes Dry - Neck Exam Neck exam: Positive for: Full Rom - Respiratory Exam Respiratory Exam: Clear to Auscultation Bilateral, NORMAL BREATHING PATTERN - Cardiovascular Exam Cardiovascular Exam: REGULAR RHYTHM - GI/Abdominal Exam GI & Abdominal Exam: Normal Bowel Sounds - Exam External exam: NORMAL EXTERNAL EXAM - Extremities Exam Extremities exam: Positive for: normal inspection - Back Exam Back exam: NORMAL INSPECTION - Neurological Exam Additional comments: lethargic, arousable, non focal Results - Vital Signs Recent Vital Signs: Last Vital Signs Temp 98.1 F 10/24/18 08:00 Pulse 97 H 10/24/18 08:04 Resp 22 10/24/18 08:00 BP 165/95 H 10/24/18 08:00 Pulse Ox 94 L 10/24/18 08:00 - Labs Result Diagrams: 10/24/18 05:02 10/24/18 12:21 Labs: Laboratory Results - last 24 hr 0110/23/18 10/23/18 23:32 23:32 23:50 WBC 14.7 H D RBC 5.58 H Hgb 17.0 H D Hct 50.4 H MCV 90.2 MCH 30.5 MCHC 33.8 RDW 13.4 Plt Count 304 MPV 8.5 Neut % (Auto) 85.8 H Lymph % (Auto) 8.6 L Vernon % (Auto) 5.5 Eos % (Auto) 0.0 Baso % (Auto) 0.1 Neut # (Auto) 12.6 H Lymph # (Auto) 1.3 Vernon # (Auto) 0.8 Eos # (Auto) 0.0 Baso # (Auto) 0.0 Neutrophils % (Manual) 82 H Band Neutrophils % 2 Lymphocytes % (Manual) 11 L Monocytes % (Manual) 5 Platelet Estimate Normal PT INR APTT pO2 VBG pH VBG pCO2 VBG HCO3 VBG Total CO2 VBG O2 Sat (Calc) VBG Base Excess VBG Potassium Glucose Lactate Sodium 140 Potassium 2.7 L Chloride 88 L Carbon Dioxide 37 H Anion Gap 17 BUN 43 H Creatinine 1.1 Est GFR ( Amer) 57 Est GFR (Non-Af Amer) 47 Random Glucose 243 H D Hemoglobin A1c Calcium 9.9 Phosphorus Magnesium Total Bilirubin 0.7 AST 63 H ALT 20 Alkaline Phosphatase 80 Total Creatine Kinase CK-MB (Mass) Troponin I 0.2240 H* NT-Pro-B Natriuret Pep 3110 H Total Protein 9.5 H Albumin 4.8 Globulin 4.7 H Albumin/Globulin Ratio 1.0 Lipase 112 Venous Blood Potassium Stool Occult Blood Blood Type Blood Type Confirm Antibody Screen 10/24/18 10/24/18 10/24/18 00:35 01:18 01:47 WBC RBC Hgb Hct MCV MCH MCHC RDW Plt Count MPV Neut % (Auto) Lymph % (Auto) Vernon % (Auto) Eos % (Auto) Baso % (Auto) Neut # (Auto) Lymph # (Auto) Vernon # (Auto) Eos # (Auto) Baso # (Auto) Neutrophils % (Manual) Band Neutrophils % Lymphocytes % (Manual) Monocytes % (Manual) Platelet Estimate PT INR APTT pO2 31 VBG pH 7.49 H VBG pCO2 57 VBG HCO3 37.3 VBG Total CO2 45.1 H VBG O2 Sat (Calc) 58.5 VBG Base Excess 17.0 H VBG Potassium 2.8 L Glucose 206 H Lactate 2.6 H Sodium 142.0 Potassium Chloride 94.0 L Carbon Dioxide Anion Gap BUN Creatinine Est GFR ( Amer) Est GFR (Non-Af Amer) Random Glucose Hemoglobin A1c Calcium Phosphorus Magnesium Total Bilirubin AST ALT Alkaline Phosphatase Total Creatine Kinase CK-MB (Mass) Troponin I NT-Pro-B Natriuret Pep Total Protein Albumin Globulin Albumin/Globulin Ratio Lipase Venous Blood Potassium 2.8 L Stool Occult Blood Negative Blood Type A POSITIVE Blood Type Confirm A POSITIVE Antibody Screen Negative 10/24/18 10/24/18 10/24/18 02:10 03:16 05:02 WBC 15.5 H RBC 5.60 H Hgb 16.6 H Hct 50.9 H MCV 90.9 MCH 29.7 MCHC 32.7 L RDW 13.8 Plt Count 262 MPV 8.7 Neut % (Auto) 89.1 H Lymph % (Auto) 4.3 L Vernon % (Auto) 5.7 Eos % (Auto) 0.0 Baso % (Auto) 0.9 Neut # (Auto) 13.8 H Lymph # (Auto) 0.7 L Vernon # (Auto) 0.9 H Eos # (Auto) 0.0 Baso # (Auto) 0.1 Neutrophils % (Manual) 85 H Band Neutrophils % 2 Lymphocytes % (Manual) 9 L Monocytes % (Manual) 4 Platelet Estimate Normal PT 28.0 H INR 2.6 APTT 42 H pO2 VBG pH VBG pCO2 VBG HCO3 VBG Total CO2 VBG O2 Sat (Calc) VBG Base Excess VBG Potassium Glucose Lactate Sodium Potassium Chloride Carbon Dioxide Anion Gap BUN Creatinine Est GFR ( Amer) Est GFR (Non-Af Amer) Random Glucose Hemoglobin A1c Calcium Phosphorus 4.4 Magnesium 1.7 Total Bilirubin AST ALT Alkaline Phosphatase Total Creatine Kinase CK-MB (Mass) Troponin I NT-Pro-B Natriuret Pep Total Protein Albumin Globulin Albumin/Globulin Ratio Lipase Venous Blood Potassium Stool Occult Blood Blood Type Blood Type Confirm Antibody Screen 10/24/18 10/24/18 10/24/18 05:02 05:02 05:02 WBC RBC Hgb Hct MCV MCH MCHC RDW Plt Count MPV Neut % (Auto) Lymph % (Auto) Vernon % (Auto) Eos % (Auto) Baso % (Auto) Neut # (Auto) Lymph # (Auto) Vernon # (Auto) Eos # (Auto) Baso # (Auto) Neutrophils % (Manual) Band Neutrophils % Lymphocytes % (Manual) Monocytes % (Manual) Platelet Estimate PT 30.6 H INR 2.8 APTT pO2 VBG pH VBG pCO2 VBG HCO3 VBG Total CO2 VBG O2 Sat (Calc) VBG Base Excess VBG Potassium Glucose Lactate Sodium 141 Potassium 2.9 L Chloride 91 L Carbon Dioxide 40 H* Anion Gap 14 BUN 46 H Creatinine 1.2 Est GFR ( Amer) 52 Est GFR (Non-Af Amer) 43 Random Glucose 158 H D Hemoglobin A1c 5.7 Calcium 9.5 Phosphorus 4.2 Magnesium 1.8 Total Bilirubin 0.7 AST 56 H ALT 19 Alkaline Phosphatase 73 Total Creatine Kinase CK-MB (Mass) Troponin I NT-Pro-B Natriuret Pep Total Protein 8.8 H Albumin 4.5 Globulin 4.4 H Albumin/Globulin Ratio 1.0 Lipase Venous Blood Potassium Stool Occult Blood Blood Type Blood Type Confirm Antibody Screen 10/24/18 10/24/18 05:44 12:21 WBC RBC Hgb Hct MCV MCH MCHC RDW Plt Count MPV Neut % (Auto) Lymph % (Auto) Vernon % (Auto) Eos % (Auto) Baso % (Auto) Neut # (Auto) Lymph # (Auto) Vernon # (Auto) Eos # (Auto) Baso # (Auto) Neutrophils % (Manual) Band Neutrophils % Lymphocytes % (Manual) Monocytes % (Manual) Platelet Estimate PT INR APTT pO2 VBG pH VBG pCO2 VBG HCO3 VBG Total CO2 VBG O2 Sat (Calc) VBG Base Excess VBG Potassium Glucose Lactate Sodium Potassium 2.9 L Chloride Carbon Dioxide Anion Gap BUN Creatinine Est GFR ( Amer) Est GFR (Non-Af Amer) Random Glucose Hemoglobin A1c Calcium Phosphorus Magnesium Total Bilirubin AST ALT Alkaline Phosphatase Total Creatine Kinase 439 H 447 H CK-MB (Mass) 5.44 H 6.49 H Troponin I 0.1680 H* 0.1240 H* NT-Pro-B Natriuret Pep Total Protein Albumin Globulin Albumin/Globulin Ratio Lipase Venous Blood Potassium Stool Occult Blood Blood Type Blood Type Confirm Antibody Screen - EKG Data EKG Interpreted by: Myself EKG shows normal: Sinus rhythm Rate: Normal (normal ecg) Assessment & Plan - Assessment and Plan (Free Text) Assessment: 1. Pt without known CAD, and persistently slightly elevated TNI levels, with normal ecg. Pt has not reported angina to her fmily prior to recent events. Etiology could be demand ischemia. Nevertheless, the patient is critically ill, and robotic surgery is planned. Although pt is elderly and increased risk of cardiovascular events, life saving surgery should proceed without additional cardiac work up. If there is time, an echo will be performed to assess overall heart function.
--- NOTE | 2018-10-24 16:24 | RAD ---
HISTORY: NG tube insertion COMPARISON: None available. TECHNIQUE: Chest, one view. FINDINGS: Nasogastric tube extends expected location of the stomach. LUNGS: Left lower lobe atelectasis/pneumonia. 2 cm right upper lobe pulmonary mass re-identified. 1 cm right middle lobe nodule. PLEURA: Tiny left pleural effusion. No definite pneumothorax . CARDIOVASCULAR: Marked cardiomegaly. Atherosclerotic calcification of the aorta. OSSEOUS STRUCTURES: Osseous demineralization. Degenerative changes. VISUALIZED UPPER ABDOMEN: Unremarkable. OTHER FINDINGS: None. IMPRESSION: Nasogastric tube extends expected location of the stomach. Left basilar atelectasis/pneumonia. Trace left pleural effusion. 2 cm right upper lobe pulmonary mass re-identified. 1 cm right middle lobe nodule. If indicated, recommend further evaluation with chest CT. Marked cardiomegaly.
[2018-10-24] MEDS: metroNIDAZOLE IV 500 mg/100 ml 500 MG/100 ML BAG IVPB SCH ×2 (16:31→23:14)
[2018-10-24] MEDS ORDERED: Albuterol-Ipratrop 3 mg / 0.5 (3 ml) UD INH STA (17:17)
[2018-10-24] MEDS: Potassium Ch 20mEq in D5-1/2NS 1,000 ML IV SCH (17:53)
[2018-10-24 17:59] LABS: ABG ALLEN TEST PO; ARTERIAL BLOOD GAS HCO3 32.7 mmol/L (21-28); ARTERIAL BLOOD GAS O2 SAT 97.4 % (95-98); ARTERIAL BLOOD GAS PCO2 43 mm/Hg (35-45); ARTERIAL BLOOD GAS PH 7.51 (7.35-7.45); ARTERIAL BLOOD GAS PO2 69 mm/Hg (80-100); ARTERIAL BLOOD GAS TCO2 35.6 mmol/L (22-28)
--- NOTE | 2018-10-24 18:07 | CP.PCM.CON ---
<Kenn Kruse - Last Filed: 10/24/18 19:06> History of Present Illness - History of Present Illness History of Present Illness: PGY-1 ICU Consult note for Dr Brown service cc: shortness of breath Patient is a 83 year old female with pmhx of hiatrial hernia, DVT/PE and HTN that was brought to the ED earlier today for epigastric pain and about 7 episodes of coffee ground vomiting. Patient experienced abdominal pain that does not resolve with vomiting. Last BM was 2 days ago. upon encounter, Patient is now complaining of shortness of breath, which is not relieved with nonrebreather mask. Patient denies any other symptom. Patient is now upgraded to ICU due to possible aspiration pneumonia 2/2 to hiatial hernia. PMD: Dr White Pmhx: as stated in HPI Shx: Appendectomy (50 years ago), IVC filter (10 years ago) All: seasonal Meds: as per EMR Shx: denied alcohol, tobacco , recreational drugs. Full code: DNR/DNI Review of Systems - Review of Systems All systems: reviewed and no additional remarkable complaints except Review of Systems: as stated in HPI Past Patient History - Past Social History Smoking Status: Never Smoked - CARDIAC Hx Hypertension: Yes - PULMONARY Hx Pulmonary Embolism: Yes - HEENT Hx HEENT Problems: No - RENAL Hx Chronic Kidney Disease: No - ENDOCRINE/METABOLIC Hx Endocrine Disorders: No - HEMATOLOGICAL/ONCOLOGICAL Hx Blood Disorders: No - INTEGUMENTARY Hx Dermatological Problems: No - MUSCULOSKELETAL/RHEUMATOLOGICAL Hx Musculoskeletal Disorders: No Hx Falls: No - GASTROINTESTINAL Hx Gastrointestinal Disorders: No - GENITOURINARY/GYNECOLOGICAL Hx Genitourinary Disorders: No - PSYCHIATRIC Hx Psychophysiologic Disorder: No Hx Substance Use: No - SURGICAL HISTORY Hx Appendectomy: Yes (13 years old) Other/Comment: IVC filter on 2000 - ANESTHESIA Hx Anesthesia: Yes Hx Anesthesia Reactions: No Hx Malignant Hyperthermia: No Has any member of the family had a problem w/ anesthesia?: No Meds Allergies/Adverse Reactions: Allergies Allergy/AdvReac Type Severity Reaction Status Date / Time No Known Allergies Allergy Unverified 10/23/18 23:21 - Medications Medications: Current Medications Pantoprazole Sodium 80 mg/ (Sodium Chloride) 100 mls @ 10 mls/hr IVP .Q10H [facility] Last Admin: 10/24/18 12:24 Dose: 10 mls/hr Metronidazole (Flagyl) 500 mg in 100 mls @ 100 mls/hr IVPB Q8H [facility]; Protocol Last Admin: 10/24/18 16:31 Dose: 100 mls/hr Potassium Chloride/Dextrose/Sod Cl (Potassium Chl 20 Meq In D5-1/2ns) 1,000 mls @ 100 mls/hr IV .Q10H [facility] Last Admin: 10/24/18 17:53 Dose: 100 mls/hr Piperacillin Sod/Tazobactam Sod (Zosyn 3.375 Gm Iv Premix) 3.375 gm in 50 mls @ 100 mls/hr IVPB Q6H [facility]; Protocol Labetalol HCl (Trandate) 5 mg IVP Q6H PRN PRN Reason: Systolic Blood Pressure Metoclopramide HCl (Reglan) 5 mg IVP Q6H [facility] Last Admin: 10/24/18 15:02 Dose: 5 mg Physical Exam - Constitutional Appears: In Acute Distress, Chronically Ill - Head Exam Head Exam: ATRAUMATIC, NORMOCEPHALIC - Eye Exam Eye Exam: EOMI, Normal appearance - ENT Exam ENT Exam: Mucous Membranes Moist, Normal Exam - Neck Exam Neck exam: Positive for: Normal Inspection - Respiratory Exam Respiratory Exam: Clear to Auscultation Bilateral, NORMAL BREATHING PATTERN - Cardiovascular Exam Cardiovascular Exam: REGULAR RHYTHM - GI/Abdominal Exam GI & Abdominal Exam: Soft. absent: Tenderness - Extremities Exam Extremities exam: Positive for: normal inspection - Neurological Exam Neurological exam: Alert, Oriented x3 - Skin Skin Exam: Dry Results - Vital Signs Recent Vital Signs: Last Vital Signs Temp 98.2 F 10/24/18 16:00 Pulse 98 H 10/24/18 16:05 Resp 26 H 10/24/18 16:05 BP 136/82 10/24/18 16:05 Pulse Ox 92 L 10/24/18 16:05 - Labs Result Diagrams: 10/24/18 05:02 10/24/18 12:21 Labs: Laboratory Results - last 24 hr 10/23/18 10/23/18 10/23/18 23:32 23:32 23:50 WBC 14.7 H D RBC 5.58 H Hgb 17.0 H D Hct 50.4 H MCV 90.2 MCH 30.5 MCHC 33.8 RDW 13.4 Plt Count 304 MPV 8.5 Neut % (Auto) 85.8 H Lymph % (Auto) 8.6 L Cochran % (Auto) 5.5 Eos % (Auto) 0.0 Baso % (Auto) 0.1 Neut # (Auto) 12.6 H Lymph # (Auto) 1.3 Cochran # (Auto) 0.8 Eos # (Auto) 0.0 Baso # (Auto) 0.0 Neutrophils % (Manual) 82 H Band Neutrophils % 2 Lymphocytes % (Manual) 11 L Monocytes % (Manual) 5 Platelet Estimate Normal PT INR APTT pO2 VBG pH VBG pCO2 VBG HCO3 VBG Total CO2 VBG O2 Sat (Calc) VBG Base Excess VBG Potassium Glucose Lactate Sodium 140 Potassium 2.7 L Chloride 88 L Carbon Dioxide 37 H Anion Gap 17 BUN 43 H Creatinine 1.1 Est GFR ( Amer) 57 Est GFR (Non-Af Amer) 47 Random Glucose 243 H D Hemoglobin A1c Calcium 9.9 Phosphorus Magnesium Total Bilirubin 0.7 AST 63 H ALT 20 Alkaline Phosphatase 80 Total Creatine Kinase CK-MB (Mass) Troponin I 0.2240 H* NT-Pro-B Natriuret Pep 3110 H Total Protein 9.5 H Albumin 4.8 Globulin 4.7 H Albumin/Globulin Ratio 1.0 Lipase 112 Venous Blood Potassium Stool Occult Blood Blood Type Blood Type Confirm Antibody Screen 10/24/18 10/24/18 10/24/18 00:35 01:18 01:47 WBC RBC Hgb Hct MCV MCH MCHC RDW Plt Count MPV Neut % (Auto) Lymph % (Auto) Cochran % (Auto) Eos % (Auto) Baso % (Auto) Neut # (Auto) Lymph # (Auto) Cochran # (Auto) Eos # (Auto) Baso # (Auto) Neutrophils % (Manual) Band Neutrophils % Lymphocytes % (Manual) Monocytes % (Manual) Platelet Estimate PT INR APTT pO2 31 VBG pH 7.49 H VBG pCO2 57 VBG HCO3 37.3 VBG Total CO2 45.1 H VBG O2 Sat (Calc) 58.5 VBG Base Excess 17.0 H VBG Potassium 2.8 L Glucose 206 H Lactate 2.6 H Sodium 142.0 Potassium Chloride 94.0 L Carbon Dioxide Anion Gap BUN Creatinine Est GFR ( Amer) Est GFR (Non-Af Amer) Random Glucose Hemoglobin A1c Calcium Phosphorus Magnesium Total Bilirubin AST ALT Alkaline Phosphatase Total Creatine Kinase CK-MB (Mass) Troponin I NT-Pro-B Natriuret Pep Total Protein Albumin Globulin Albumin/Globulin Ratio Lipase Venous Blood Potassium 2.8 L Stool Occult Blood Negative Blood Type A POSITIVE Blood Type Confirm A POSITIVE Antibody Screen Negative 10/24/18 10/24/18 10/24/18 02:10 03:16 05:02 WBC 15.5 H RBC 5.60 H Hgb 16.6 H Hct 50.9 H MCV 90.9 MCH 29.7 MCHC 32.7 L RDW 13.8 Plt Count 262 MPV 8.7 Neut % (Auto) 89.1 H Lymph % (Auto) 4.3 L Cochran % (Auto) 5.7 Eos % (Auto) 0.0 Baso % (Auto) 0.9 Neut # (Auto) 13.8 H Lymph # (Auto) 0.7 L Cochran # (Auto) 0.9 H Eos # (Auto) 0.0 Baso # (Auto) 0.1 Neutrophils % (Manual) 85 H Band Neutrophils % 2 Lymphocytes % (Manual) 9 L Monocytes % (Manual) 4 Platelet Estimate Normal PT 28.0 H INR 2.6 APTT 42 H pO2 VBG pH VBG pCO2 VBG HCO3 VBG Total CO2 VBG O2 Sat (Calc) VBG Base Excess VBG Potassium Glucose Lactate Sodium Potassium Chloride Carbon Dioxide Anion Gap BUN Creatinine Est GFR ( Amer) Est GFR (Non-Af Amer) Random Glucose Hemoglobin A1c Calcium Phosphorus 4.4 Magnesium 1.7 Total Bilirubin AST ALT Alkaline Phosphatase Total Creatine Kinase CK-MB (Mass) Troponin I NT-Pro-B Natriuret Pep Total Protein Albumin Globulin Albumin/Globulin Ratio Lipase Venous Blood Potassium Stool Occult Blood Blood Type Blood Type Confirm Antibody Screen 10/24/18 10/24/18 10/24/18 05:02 05:02 05:02 WBC RBC Hgb Hct MCV MCH MCHC RDW Plt Count MPV Neut % (Auto) Lymph % (Auto) Cochran % (Auto) Eos % (Auto) Baso % (Auto) Neut # (Auto) Lymph # (Auto) Cochran # (Auto) Eos # (Auto) Baso # (Auto) Neutrophils % (Manual) Band Neutrophils % Lymphocytes % (Manual) Monocytes % (Manual) Platelet Estimate PT 30.6 H INR 2.8 APTT pO2 VBG pH VBG pCO2 VBG HCO3 VBG Total CO2 VBG O2 Sat (Calc) VBG Base Excess VBG Potassium Glucose Lactate Sodium 141 Potassium 2.9 L Chloride 91 L Carbon Dioxide 40 H* Anion Gap 14 BUN 46 H Creatinine 1.2 Est GFR ( Amer) 52 Est GFR (Non-Af Amer) 43 Random Glucose 158 H D Hemoglobin A1c 5.7 Calcium 9.5 Phosphorus 4.2 Magnesium 1.8 Total Bilirubin 0.7 AST 56 H ALT 19 Alkaline Phosphatase 73 Total Creatine Kinase CK-MB (Mass) Troponin I NT-Pro-B Natriuret Pep Total Protein 8.8 H Albumin 4.5 Globulin 4.4 H Albumin/Globulin Ratio 1.0 Lipase Venous Blood Potassium Stool Occult Blood Blood Type Blood Type Confirm Antibody Screen 10/24/18 10/24/18 05:44 12:21 WBC RBC Hgb Hct MCV MCH MCHC RDW Plt Count MPV Neut % (Auto) Lymph % (Auto) Cochran % (Auto) Eos % (Auto) Baso % (Auto) Neut # (Auto) Lymph # (Auto) Cochran # (Auto) Eos # (Auto) Baso # (Auto) Neutrophils % (Manual) Band Neutrophils % Lymphocytes % (Manual) Monocytes % (Manual) Platelet Estimate PT INR APTT pO2 VBG pH VBG pCO2 VBG HCO3 VBG Total CO2 VBG O2 Sat (Calc) VBG Base Excess VBG Potassium Glucose Lactate Sodium Potassium 2.9 L Chloride Carbon Dioxide Anion Gap BUN Creatinine Est GFR ( Amer) Est GFR (Non-Af Amer) Random Glucose Hemoglobin A1c Calcium Phosphorus Magnesium Total Bilirubin AST ALT Alkaline Phosphatase Total Creatine Kinase 439 H 447 H CK-MB (Mass) 5.44 H 6.49 H Troponin I 0.1680 H* 0.1240 H* NT-Pro-B Natriuret Pep Total Protein Albumin Globulin Albumin/Globulin Ratio Lipase Venous Blood Potassium Stool Occult Blood Blood Type Blood Type Confirm Antibody Screen Assessment & Plan - Assessment and Plan (Free Text) Plan: Patient is a 83 y/o female with pmhx of of hiatal hernia, DVT/PE, HTN who presented to the ED with epigastric pain and ground coffee vomiting for the past 2 days. Patient is complaining of shortness of breath, cxray taken this afternoon concerning for aspiration PNA from vomiting noticed on left side. Currently on nonrebreather mask with little or no improvement. Patient to be switched to high flow oxygen and to be monitored in ICU, on antibiotics . Patient does not wish to be intubated or to have any resuscitation measures and is DNR/DNI. Neuro AAOx3 no acute issues Cardio troponin Hx of HTN continue labetalol Cardio consult - Dr Vidal Pulm respiratory distress most likely from aspiration PNA 2/2 to vomiting and hx of hiatal hernia cxray 10/24- left basilar atelectasis/pneumonia. Trace left pleural effusion nonrebreather mask not improving sob high flow oxygen continue to monitor sat on abx (see ID) Pulm consult - Dr Almanzar am labs ABG - f/u GI vomiting, hx of hiatal hernia CT chest - intra thoracic stomach/hiatal hernia with gastric outlet obstruction stool occult negative EGD 10/24 postpone mid procedure due to risk of aspiration NPO diet protonix drip reglan IVP Q6H for nausea GI consult - Dr Cervantes - will follow recs sx consult - Dr Hogan/ Chris CT sx consult - Dr Mitchell Nephro am K low repleted with KCL follow am labs ID WBC - 15.5 from 14.7 Possible aspiration PNA from vomiting and location of stomach on chest region due to hiatal hernia on Zosyn and flagyl am labs PPX: DVT: contraindicated due to Hematemesis/ acute GI bleed, coumadin held GI: Protonix drip continue symptomatic relief as needed Dispo: Dr Brown and I discussed with patient and patient's son at bedside about patient's condition and possibility of sob being caused by aspiration PNA due to vomiting and her hx of hiatal hernia. Discussed with patient the poss ibility of intubation, which patient refuses in the case she needs it. Patient asked in case of cardiorespiratory distress if she would like Cardiopulmonary resuscitation measurements. Patient states she would not like to be resuscitated in the case of cardiopulmonary arrest. Patient verbally agreed to DNR/DNI, witnessed by Dr Brown and myself. Plan discussed with Dr Stephanie Kruse, PGY-1 - Date & Time Date: 10/24/18 Time: 17:40 <Aba Brown - Last Filed: 10/25/18 14:03> Meds - Medications Medications: Current Medications Pantoprazole Sodium 80 mg/ (Sodium Chloride) 100 mls @ 10 mls/hr IVP .Q10H [facility] Last Admin: 10/25/18 08:34 Dose: 10 mls/hr Morphine Sulfate 250 mg/ (Dextrose) 250 mls @ 2 mls/hr IV .Q24H PRN; Protocol PRN Reason: PER PROTOCOL Last Admin: 10/25/18 13:44 Dose: 2 mg/hr, 2 mls/hr Results - Vital Signs Recent Vital Signs: Last Vital Signs Temp 97.4 F L 10/25/18 08:00 Pulse 109 H 10/25/18 10:00 Resp 26 H 10/25/18 13:44 BP 85/58 L 10/25/18 08:00 Pulse Ox 96 10/25/18 08:00 - Labs Result Diagrams: 10/25/18 06:26 10/25/18 06:24 Labs: Laboratory Results - last 24 hr 10/24/18 10/25/18 10/25/18 17:56 06:24 06:24 WBC RBC Hgb Hct MCV MCH MCHC RDW Plt Count MPV Neut % (Auto) Lymph % (Auto) Cochran % (Auto) Eos % (Auto) Baso % (Auto) Neut # (Auto) Lymph # (Auto) Cochran # (Auto) Eos # (Auto) Baso # (Auto) Neutrophils % (Manual) Band Neutrophils % Lymphocytes % (Manual) Monocytes % (Manual) Platelet Estimate RBC Morphology PT INR APTT Puncture Site L pCO2 43 pO2 69 L HCO3 32.7 H ABG pH 7.51 H ABG Total CO2 35.6 H ABG O2 Saturation 97.4 ABG Base Excess 10.1 H Troy Test Po ABG Potassium 3.3 L A-a O2 Difference 590.0 Respiratory Index 8.6 Sodium 143.0 139 Chloride 105.0 97 L Glucose 129 H Lactate 2.0 Liter Flow 25.0 FiO2 100.0 Potassium 3.7 Carbon Dioxide 33 H Anion Gap 12 BUN 55 H Creatinine 1.6 H Est GFR ( Amer) 37 Est GFR (Non-Af Amer) 31 Random Glucose 229 H D Lactic Acid 2.5 H Calcium 8.6 Phosphorus 3.1 Magnesium 1.7 Total Bilirubin 1.4 H AST 56 H ALT 25 Alkaline Phosphatase 49 Total Protein 6.8 Albumin 3.5 D Globulin 3.3 Albumin/Globulin Ratio 1.1 Arterial Blood Potassium 3.3 L Urine Color Urine Clarity Urine pH Ur Specific [place] Urine Protein Urine Glucose (UA) Urine Ketones Urine Blood Urine Nitrate Urine Bilirubin Urine Urobilinogen Ur Leukocyte Esterase Urine WBC (Auto) Urine RBC (Auto) Ur Squamous Epith Cells Stool Occult Blood 10/25/18 10/25/18 10/25/18 06:26 06:26 06:26 WBC 15.2 H RBC 4.98 Hgb 15.0 Hct 46.3 MCV 93.0 D MCH 30.2 MCHC 32.4 L RDW 14.1 Plt Count 203 MPV 8.8 Neut % (Auto) 89.3 H Lymph % (Auto) 5.7 L Cochran % (Auto) 5.0 Eos % (Auto) 0.0 Baso % (Auto) 0.0 Neut # (Auto) 13.6 H Lymph # (Auto) 0.9 L Cochran # (Auto) 0.8 Eos # (Auto) 0.0 Baso # (Auto) 0.0 Neutrophils % (Manual) 93 H Band Neutrophils % 1 Lymphocytes % (Manual) 4 L Monocytes % (Manual) 2 Platelet Estimate Normal RBC Morphology Normal PT 14.9 H D INR 1.4 D APTT 27 D Puncture Site pCO2 pO2 HCO3 ABG pH ABG Total CO2 ABG O2 Saturation ABG Base Excess [place] Test ABG Potassium A-a O2 Difference Respiratory Index Sodium Chloride Glucose Lactate Liter Flow FiO2 Potassium Carbon Dioxide Anion Gap BUN Creatinine Est GFR ( Amer) Est GFR (Non-Af Amer) Random Glucose Lactic Acid Calcium Phosphorus Magnesium Total Bilirubin AST ALT Alkaline Phosphatase Total Protein Albumin Globulin Albumin/Globulin Ratio Arterial Blood Potassium Urine Color Yellow Urine Clarity Hazy Urine pH 5.0 Ur Specific [place] > 1.060 H Urine Protein 2+ H Urine Glucose (UA) Normal Urine Ketones Trace Urine Blood 1+ H Urine Nitrate Negative Urine Bilirubin Negative Urine Urobilinogen Normal Ur Leukocyte Esterase Trace Urine WBC (Auto) 21 H Urine RBC (Auto) 14 H Ur Squamous Epith Cells 2 Stool Occult Blood 10/25/18 08:06 WBC RBC Hgb Hct MCV MCH MCHC RDW Plt Count MPV Neut % (Auto) Lymph % (Auto) Cochran % (Auto) Eos % (Auto) Baso % (Auto) Neut # (Auto) Lymph # (Auto) Cochran # (Auto) Eos # (Auto) Baso # (Auto) Neutrophils % (Manual) Band Neutrophils % Lymphocytes % (Manual) Monocytes % (Manual) Platelet Estimate RBC Morphology PT INR APTT Puncture Site pCO2 pO2 HCO3 ABG pH ABG Total CO2 ABG O2 Saturation ABG Base Excess [place] Test ABG Potassium A-a O2 Difference Respiratory Index Sodium Chloride Glucose Lactate Liter Flow FiO2 Potassium Carbon Dioxide Anion Gap BUN Creatinine Est GFR ( Amer) Est GFR (Non-Af Amer) Random Glucose Lactic Acid Calcium Phosphorus Magnesium Total Bilirubin AST ALT Alkaline Phosphatase Total Protein Albumin Globulin Albumin/Globulin Ratio Arterial Blood Potassium Urine Color Urine Clarity Urine pH Ur Specific [place] Urine Protein Urine Glucose (UA) Urine Ketones Urine Blood Urine Nitrate Urine Bilirubin Urine Urobilinogen Ur Leukocyte Esterase Urine WBC (Auto) Urine RBC (Auto) Ur Squamous Epith Cells Stool Occult Blood Positive H Attending/Attestation - Attestation I have personally seen and examined this patient.: Yes I have fully participated in the care of the patient.: Yes I have reviewed all pertinent clinical information: Yes Notes (Text): I have seen and examined the patient. Medical records, lab studies, and imaging were reviewed by me and a management plan was formulated on multidisciplinary rounds with resident Dr. Kruse. I agree with their documented assessment and plan. Had a long conversation with patient using associate professor of surgery, Dr. Kruse. The patient wants to be DNR/DNI. Does not want aggressive treatment. Will continue on high flow oxygen and abx and monitor for hopeful improvement. Management can be continued on the floors. Critical Care Time 35 minutes. Multi-disciplinary rounds were performed with house staff, nursing, speech therapy, respiratory therapy, pharmacy and nutrition with integrated input from the primary team/attending and other consulting services. The documented time is cumulative and includes review of patient data/exams/labs/chart review and examination of the patient on rounds and throughout the day; time is exclusive of any procedures or teaching time.
--- NOTE | 2018-10-24 18:09 | CP.PCM.CON ---
History of Present Illness - History of Present Illness History of Present Illness: reason for consultation: shortness of breath/right upper lung mass and left lower lobe infiltrate 83-year-old female with history of DVT status post IVC filter, hypertension, hiatal hernia presented to emergency room with bilious and bloody vomiting since Sunday. Patient has known hiatal hernia and experiences nausea and vomiting a fter overeating that usually resolves. At this time patient presented with persistent vomiting. Patient also is having some shortness of breath but denies fever chills, denies chest tube. chest x-ray consistent with right upper lung mass and left lower lobe infiltrate . 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 (') and HTN PSH: Appendectomy, IVC filter FH: Noncontributory SH: Denies tobacco, alcohol, drugs ALL: NKDA Meds: See MAR Review of Systems - Review of Systems All systems: reviewed and no additional remarkable complaints except (vomiting and shortness of breath) Past Patient History - Past Social History Smoking Status: Never Smoked - CARDIAC Hx Hypertension: Yes - PULMONARY Hx Pulmonary Embolism: Yes - HEENT Hx HEENT Problems: No - RENAL Hx Chronic Kidney Disease: No - ENDOCRINE/METABOLIC Hx Endocrine Disorders: No - HEMATOLOGICAL/ONCOLOGICAL Hx Blood Disorders: No - INTEGUMENTARY Hx Dermatological Problems: No - MUSCULOSKELETAL/RHEUMATOLOGICAL Hx Musculoskeletal Disorders: No Hx Falls: No - GASTROINTESTINAL Hx Gastrointestinal Disorders: No - GENITOURINARY/GYNECOLOGICAL Hx Genitourinary Disorders: No - PSYCHIATRIC Hx Psychophysiologic Disorder: No Hx Substance Use: No - SURGICAL HISTORY Hx Appendectomy: Yes (13 years old) Other/Comment: IVC filter on 2000 - ANESTHESIA Hx Anesthesia: Yes Hx Anesthesia Reactions: No Hx Malignant Hyperthermia: No Has any member of the family had a problem w/ anesthesia?: No Meds Allergies/Adverse Reactions: Allergies Allergy/AdvReac Type Severity Reaction Status Date / Time No Known Allergies Allergy Unverified 10/23/18 23:21 - Medications Medications: Current Medications Pantoprazole Sodium 80 mg/ (Sodium Chloride) 100 mls @ 10 mls/hr IVP .Q10H [facility] Last Admin: 10/24/18 12:24 Dose: 10 mls/hr Metronidazole (Flagyl) 500 mg in 100 mls @ 100 mls/hr IVPB Q8H [facility]; Protocol Last Admin: 10/24/18 16:31 Dose: 100 mls/hr Potassium Chloride/Dextrose/Sod Cl (Potassium Chl 20 Meq In D5-1/2ns) 1,000 mls @ 100 mls/hr IV .Q10H [facility] Last Admin: 10/24/18 17:53 Dose: 100 mls/hr Piperacillin Sod/Tazobactam Sod (Zosyn 3.375 Gm Iv Premix) 3.375 gm in 50 mls @ 100 mls/hr IVPB Q6H [facility]; Protocol Labetalol HCl (Trandate) 5 mg IVP Q6H PRN PRN Reason: Systolic Blood Pressure Metoclopramide HCl (Reglan) 5 mg IVP Q6H [facility] Last Admin: 10/24/18 15:02 Dose: 5 mg Physical Exam - Head Exam Head Exam: ATRAUMATIC, NORMOCEPHALIC - ENT Exam ENT Exam: Mucous Membranes Moist - Neck Exam Neck exam: Positive for: Normal Inspection - Respiratory Exam Respiratory Exam: Clear to Auscultation Bilateral - Cardiovascular Exam Cardiovascular Exam: REGULAR RHYTHM Results - Vital Signs Recent Vital Signs: Last Vital Signs Temp 98.2 F 10/24/18 16:00 Pulse 98 H 10/24/18 16:05 Resp 29 H 10/24/18 18:00 BP 136/82 10/24/18 16:05 Pulse Ox 92 L 10/24/18 16:05 - Labs Result Diagrams: 10/24/18 05:02 10/24/18 12:21 Labs: Laboratory Results - last 24 hr 10/23/18 10/23/18 10/23/18 23:32 23:32 23:50 WBC 14.7 H D RBC 5.58 H Hgb 17.0 H D Hct 50.4 H MCV 90.2 MCH 30.5 MCHC 33.8 RDW 13.4 Plt Count 304 MPV 8.5 Neut % (Auto) 85.8 H Lymph % (Auto) 8.6 L [place] % (Auto) 5.5 Eos % (Auto) 0.0 Baso % (Auto) 0.1 Neut # (Auto) 12.6 H Lymph # (Auto) 1.3 [place] # (Auto) 0.8 Eos # (Auto) 0.0 Baso # (Auto) 0.0 Neutrophils % (Manual) 82 H Band Neutrophils % 2 Lymphocytes % (Manual) 11 L Monocytes % (Manual) 5 Platelet Estimate Normal PT INR APTT Puncture Site pCO2 pO2 HCO3 ABG pH ABG Total CO2 ABG O2 Saturation ABG Base Excess [place] Test ABG Potassium VBG pH VBG pCO2 VBG HCO3 VBG Total CO2 VBG O2 Sat (Calc) VBG Base Excess VBG Potassium A-a O2 Difference Respiratory Index Glucose Lactate Liter Flow FiO2 Sodium 140 Potassium 2.7 L Chloride 88 L Carbon Dioxide 37 H Anion Gap 17 BUN 43 H Creatinine 1.1 Est GFR ( Amer) 57 Est GFR (Non-Af Amer) 47 Random Glucose 243 H D Hemoglobin A1c Calcium 9.9 Phosphorus Magnesium Total Bilirubin 0.7 AST 63 H ALT 20 Alkaline Phosphatase 80 Total Creatine Kinase CK-MB (Mass) Troponin I 0.2240 H* NT-Pro-B Natriuret Pep 3110 H Total Protein 9.5 H Albumin 4.8 Globulin 4.7 H Albumin/Globulin Ratio 1.0 Lipase 112 Arterial Blood Potassium Venous Blood Potassium Stool Occult Blood Blood Type Blood Type Confirm Antibody Screen 10/24/18 10/24/18 10/24/18 00:35 01:18 01:47 WBC RBC Hgb Hct MCV MCH MCHC RDW Plt Count MPV Neut % (Auto) Lymph % (Auto) [place] % (Auto) Eos % (Auto) Baso % (Auto) Neut # (Auto) Lymph # (Auto) [place] # (Auto) Eos # (Auto) Baso # (Auto) Neutrophils % (Manual) Band Neutrophils % Lymphocytes % (Manual) Monocytes % (Manual) Platelet Estimate PT INR APTT Puncture Site pCO2 pO2 31 HCO3 ABG pH ABG Total CO2 ABG O2 Saturation ABG Base Excess [place] Test ABG Potassium VBG pH 7.49 H VBG pCO2 57 VBG HCO3 37.3 VBG Total CO2 45.1 H VBG O2 Sat (Calc) 58.5 VBG Base Excess 17.0 H VBG Potassium 2.8 L A-a O2 Difference Respiratory Index Glucose 206 H Lactate 2.6 H Liter Flow FiO2 Sodium 142.0 Potassium Chloride 94.0 L Carbon Dioxide Anion Gap BUN Creatinine Est GFR ( Amer) Est GFR (Non-Af Amer) Random Glucose Hemoglobin A1c Calcium Phosphorus Magnesium Total Bilirubin AST ALT Alkaline Phosphatase Total Creatine Kinase CK-MB (Mass) Troponin I NT-Pro-B Natriuret Pep Total Protein Albumin Globulin Albumin/Globulin Ratio Lipase Arterial Blood Potassium Venous Blood Potassium 2.8 L Stool Occult Blood Negative Blood Type A POSITIVE Blood Type Confirm A POSITIVE Antibody Screen Negative 10/24/18 10/24/18 10/24/18 02:10 03:16 05:02 WBC 15.5 H RBC 5.60 H Hgb 16.6 H Hct 50.9 H MCV 90.9 MCH 29.7 MCHC 32.7 L RDW 13.8 Plt Count 262 MPV 8.7 Neut % (Auto) 89.1 H Lymph % (Auto) 4.3 L [place] % (Auto) 5.7 Eos % (Auto) 0.0 Baso % (Auto) 0.9 Neut # (Auto) 13.8 H Lymph # (Auto) 0.7 L [place] # (Auto) 0.9 H Eos # (Auto) 0.0 Baso # (Auto) 0.1 Neutrophils % (Manual) 85 H Band Neutrophils % 2 Lymphocytes % (Manual) 9 L Monocytes % (Manual) 4 Platelet Estimate Normal PT 28.0 H INR 2.6 APTT 42 H Puncture Site pCO2 pO2 HCO3 ABG pH ABG Total CO2 ABG O2 Saturation ABG Base Excess [place] Test ABG Potassium VBG pH VBG pCO2 VBG HCO3 VBG Total CO2 VBG O2 Sat (Calc) VBG Base Excess VBG Potassium A-a O2 Difference Respiratory Index Glucose Lactate Liter Flow FiO2 Sodium Potassium Chloride Carbon Dioxide Anion Gap BUN Creatinine Est GFR ( Amer) Est GFR (Non-Af Amer) Random Glucose Hemoglobin A1c Calcium Phosphorus 4.4 Magnesium 1.7 Total Bilirubin AST ALT Alkaline Phosphatase Total Creatine Kinase CK-MB (Mass) Troponin I NT-Pro-B Natriuret Pep Total Protein Albumin Globulin Albumin/Globulin Ratio Lipase Arterial Blood Potassium Venous Blood Potassium Stool Occult Blood Blood Type Blood Type Confirm Antibody Screen 10/24/18 10/24/18 10/24/18 05:02 05:02 05:02 WBC RBC Hgb Hct MCV MCH MCHC RDW Plt Count MPV Neut % (Auto) Lymph % (Auto) [place] % (Auto) Eos % (Auto) Baso % (Auto) Neut # (Auto) Lymph # (Auto) [place] # (Auto) Eos # (Auto) Baso # (Auto) Neutrophils % (Manual) Band Neutrophils % Lymphocytes % (Manual) Monocytes % (Manual) Platelet Estimate PT 30.6 H INR 2.8 APTT Puncture Site pCO2 pO2 HCO3 ABG pH ABG Total CO2 ABG O2 Saturation ABG Base Excess [place] Test ABG Potassium VBG pH VBG pCO2 VBG HCO3 VBG Total CO2 VBG O2 Sat (Calc) VBG Base Excess VBG Potassium A-a O2 Difference Respiratory Index Glucose Lactate Liter Flow FiO2 Sodium 141 Potassium 2.9 L Chloride 91 L Carbon Dioxide 40 H* Anion Gap 14 BUN 46 H Creatinine 1.2 Est GFR ( Amer) 52 Est GFR (Non-Af Amer) 43 Random Glucose 158 H D Hemoglobin A1c 5.7 Calcium 9.5 Phosphorus 4.2 Magnesium 1.8 Total Bilirubin 0.7 AST 56 H ALT 19 Alkaline Phosphatase 73 Total Creatine Kinase CK-MB (Mass) Troponin I NT-Pro-B Natriuret Pep Total Protein 8.8 H Albumin 4.5 Globulin 4.4 H Albumin/Globulin Ratio 1.0 Lipase Arterial Blood Potassium Venous Blood Potassium Stool Occult Blood Blood Type Blood Type Confirm Antibody Screen 10/24/18 10/24/18 10/24/18 05:44 12:21 17:56 WBC RBC Hgb Hct MCV MCH MCHC RDW Plt Count MPV Neut % (Auto) Lymph % (Auto) [place] % (Auto) Eos % (Auto) Baso % (Auto) Neut # (Auto) Lymph # (Auto) [place] # (Auto) Eos # (Auto) Baso # (Auto) Neutrophils % (Manual) Band Neutrophils % Lymphocytes % (Manual) Monocytes % (Manual) Platelet Estimate PT INR APTT Puncture Site L pCO2 43 pO2 69 L HCO3 32.7 H ABG pH 7.51 H ABG Total CO2 35.6 H ABG O2 Saturation 97.4 ABG Base Excess 10.1 H [place] Test Po ABG Potassium 3.3 L VBG pH VBG pCO2 VBG HCO3 VBG Total CO2 VBG O2 Sat (Calc) VBG Base Excess VBG Potassium A-a O2 Difference 590.0 Respiratory Index 8.6 Glucose 129 H Lactate 2.0 Liter Flow 25.0 FiO2 100.0 Sodium 143.0 Potassium 2.9 L Chloride 105.0 Carbon Dioxide Anion Gap BUN Creatinine Est GFR ( Amer) Est GFR (Non-Af Amer) Random Glucose Hemoglobin A1c Calcium Phosphorus Magnesium Total Bilirubin AST ALT Alkaline Phosphatase Total Creatine Kinase 439 H 447 H CK-MB (Mass) 5.44 H 6.49 H Troponin I 0.1680 H* 0.1240 H* NT-Pro-B Natriuret Pep Total Protein Albumin Globulin Albumin/Globulin Ratio Lipase Arterial Blood Potassium 3.3 L Venous Blood Potassium Stool Occult Blood Blood Type Blood Type Confirm Antibody Screen Assessment & Plan - Assessment and Plan (Free Text) Assessment: 83-year-old female presented with bilious vomiting/large hypercapnia and chest x-ray consistent with left lower lobe infiltrate with elevated white count with 2 cm right upper lung mass. Consider CAT scan of chest IV antibiotics Culture and sensitivity Seen by surgery Continue protonix/ EGD
--- NOTE | 2018-10-24 18:12 | RAD ---
Date of service: 10/24/2018 HISTORY: possible aspiration COMPARISON: October 24, 2018 Time of the most recent examination: 15:34. FINDINGS: LUNGS: Stable pulmonary findings particularly affecting the left lung. Pulmonary nodule/mass right upper lobe. Suspicious findings of either mass or adenopathy perihilar region left side. PLEURA: No significant pleural effusion identified, no pneumothorax apparent. CARDIOVASCULAR: No atherosclerotic calcification present Normal. OSSEOUS STRUCTURES: No significant abnormalities. VISUALIZED UPPER ABDOMEN: Stable position nasogastric tube. Intrathoracic location of large portions of the stomach a finding better visualized on CT scan of the abdomen and pelvis performed October 24, 2018 OTHER FINDINGS: None. IMPRESSION: No significant interval change compared to the prior examination(s).
[2018-10-24] MEDS: Piperacill/Tazo 3.375gm in Dex 3.375 GM/50 ML BAG IVPB SCH (20:21)
[2018-10-25] MEDS: Piperacill/Tazo 3.375gm in Dex 3.375 GM/50 ML BAG IVPB SCH ×2 (02:06→08:33)
[2018-10-25] MEDS: Potassium Ch 20mEq in D5-1/2NS 1,000 ML IV SCH (02:40)
[2018-10-25 06:31] LABS: LYMPH # 0.9 K/uL (1.0-4.3); LYMPH % 5.7 % (20.0-40.0); MEAN CORPUSCULAR HEMOGLOBIN 30.2 pg (27.0-31.0); MEAN CORPUSCULAR HGB CONC 32.4 g/dL (33.0-37.0); MEAN PLATELET VOLUME 8.8 fL (7.2-11.7); MONO # 0.8 K/uL (0.0-0.8); NEUT # 13.6 K/uL (1.8-7.0); NEUT % 89.3 % (50.0-75.0); PLATELET COUNT 203 K/uL (130-400); RBC 4.98 Mil/uL (3.80-5.20); RED CELL DISTRIBUTION WIDTH 14.1 % (11.5-14.5); WHITE BLOOD COUNT 15.2 K/uL (4.8-10.8)
--- NOTE | 2018-10-25 06:48 | CP.PCM.PN ---
Subjective - Date & Time of Evaluation Date of Evaluation: 10/25/18 Time of Evaluation: 07:30 - Subjective Subjective: Patient examined at bedside with family in room. EGD unsuccessful yesterday 2/2 to vomiting of gastric contents intra operatively, and subsequent aspiration pneumonia that developed. Patient currently able to maintain spO2 with vapotherm hi-miguel, and reports no worsening SOB. Denies chest pain, palpitations. Discussion held with family regarding goals of care as pt is becoming hypotensive and will need cenral access for pressor support. After discussion, family is refusing, and willing to treat symptomatically with morphine PRN. Family does not want Hospice. Objective - Vital Signs/Intake and Output Vital Signs (last 24 hours): Temp Pulse Resp BP Pulse Ox 97.8 F 104 H 24 98/67 L 94 L 10/25/18 04:00 10/25/18 02:00 10/25/18 06:12 10/25/18 01:41 10/25/18 02:00 Intake and Output: 10/24/18 10/25/18 18:59 06:59 Intake Total 1650 1520 Output Total 550 400 Balance 1100 1120 - Medications Medications: Current Medications Pantoprazole Sodium 80 mg/ (Sodium Chloride) 100 mls @ 10 mls/hr IVP .Q10H [facility] Last Admin: 10/24/18 23:16 Dose: 10 mls/hr Metronidazole (Flagyl) 500 mg in 100 mls @ 100 mls/hr IVPB Q8H [facility]; Protocol Last Admin: 10/24/18 23:14 Dose: 100 mls/hr Potassium Chloride/Dextrose/Sod Cl (Potassium Chl 20 Meq In D5-1/2ns) 1,000 mls @ 100 mls/hr IV .Q10H [facility] Last Admin: 10/25/18 02:40 Dose: Not Given Piperacillin Sod/Tazobactam Sod (Zosyn 3.375 Gm Iv Premix) 3.375 gm in 50 mls @ 100 mls/hr IVPB Q6H [facility]; Protocol Last Admin: 10/25/18 02:06 Dose: 100 mls/hr Labetalol HCl (Trandate) 5 mg IVP Q6H PRN PRN Reason: Systolic Blood Pressure Metoclopramide HCl (Reglan) 5 mg IVP Q6H [facility] Last Admin: 10/25/18 02:06 Dose: 5 mg - Labs Labs: 10/25/18 06:26 10/24/18 12:21 PT 30.6 SECONDS (9.7-12.2) H 10/24/18 05:02 INR 2.8 10/24/18 05:02 APTT 42 SECONDS (21-34) H 10/24/18 02:10 - Constitutional Appears: Non-toxic, In Acute Distress - Head Exam Head Exam: ATRAUMATIC, NORMAL INSPECTION, NORMOCEPHALIC - Eye Exam Eye Exam: EOMI, Normal appearance - ENT Exam ENT Exam: Mucous Membranes Dry Additional comments: tongue with dark colored residue. NGT draining dark output - Neck Exam Neck Exam: Normal Inspection - Respiratory Exam Respiratory Exam: Decreased Breath Sounds, Rales, Rhonchi, Respiratory Distress. absent: Accessory Muscle Use, NORMAL BREATHING PATTERN (tachypneic) - Cardiovascular Exam Cardiovascular Exam: Tachycardia, REGULAR RHYTHM - GI/Abdominal Exam GI & Abdominal Exam: Soft, Hypoactive Bowel Sounds. absent: Distended, Tenderne ss - Extremities Exam Extremities Exam: Normal Inspection. absent: Calf Tenderness, Pedal Edema - Neurological Exam Neurological Exam: Alert, Awake - Psychiatric Exam Psychiatric exam: Normal Affect, Normal Mood - Skin Skin Exam: Dry, Intact, Pallor, Warm Assessment and Plan - Assessment and Plan (Free Text) Assessment: 83 year old female with pmhx of hiatal hernia, HTN, PE/DVT(on coumadin) admitted for treatment of hematemesis 2/2 type 4 hiatal hernia; currently presenting with cardiopulmonary compromise Plan: Patient has very poor prognosis. She is currently not a surgical status 2/2 to her cardiac and pulmonary compromise 2/2 hiatal hernia. Palliative consulted. Patient's family declining central access for pressor support. Patient was made DNI/DNI on POLST yesterday evening. Patient's family wishes her to be comfortable. Pastoral care consulted. Morphine drip ordered. Hypotension, acute -systolic in 80s -tachycardic -IVF dc-ed 2/2 worsening cardiac function -family refusing central line for pressors -f/u echo report -goal MAP >65 Respiratory Distress, likely 2/2 aspiration PNA sustained during attempted EGD -CXR shows worsening b/l opacities -currently on vapotherm, FiO2~100% -goal spO2 >92% -NPO -NGT to suction Type [address] A/P(10/24): Intrathoracic hiatal hernia w/ GOO. Colonic diverticulosis -NPO -NGT to suction -gastric contents positive for blood -maintain on protonix drip -EGD for today cancelled -GI consult, Dr. Cervantes -Sx, Dr. Perez; no intervention pending cardiac eval -CT Sx consult, Dr. Mitchell Dispo: Patient has very poor prognosis. She is currently not a surgical status 2/2 to her cardiac and pulmonary compromise 2/2 hiatal hernia. Palliative consulted. Patient's family declining central access for pressor support. Patient was made DNI/DNI on POLST yesterday evening. Patient's family wishes her to be comfortable. Pastoral care consulted. Ppx VTE ppx: AC contraindicated 2/2 suspected GI bleed, SCDs GI ppx: protonix drip Discussed with Dr. Osmin Collier, PGY-1
[2018-10-25 06:51] LABS: ALB/GLOB RATIO 1.1 (1.0-2.1); ALBUMIN 3.5 g/dL (3.5-5.0); CALCIUM 8.6 mg/dl (8.6-10.4)
[2018-10-25 06:52] LABS: INR 1.4; PROTHROMBIN TIME 14.9 SECONDS (9.7-12.2)
[2018-10-25 06:56] LABS: SQUAMOUS EPITHIAL 2 /hpf (0-5); URINE BILIRUBIN NEGATIVE (NEGATIVE); URINE BLOOD 1+ (NEGATIVE); URINE CLARITY Hazy (Clear); URINE COLOR Yellow (YELLOW); URINE GLUCOSE (UA) NORMAL (Normal); URINE LEUKOCYTE ESTERASE TRACE Leu/uL (Negative); URINE PROTEIN 2+ mg/dL (NEGATIVE); URINE UROBILINOGEN NORMAL mg/dL (0.2-1.0)
--- NOTE | 2018-10-25 08:22 | CP.PCM.PN ---
<VikramMeg - Last Filed: 10/25/18 10:41> Subjective - Date & Time of Evaluation Date of Evaluation: 10/25/18 Time of Evaluation: 08:21 - Subjective Subjective: General Surgery Dr. Perez Pt seen and examined @bedside. Pt w/ single episode of coffee-ground emesis overnight. On vapotherm @25L/100%. Hypotensive this AM w/ SBP 80s-90s. started on Levophed gtt by ICU. Objective - Vital Signs/Intake and Output Vital Signs (last 24 hours): Temp Pulse Resp BP Pulse Ox 97.8 F 104 H 24 98/67 L 94 L 10/25/18 04:00 10/25/18 02:00 10/25/18 06:12 10/25/18 01:41 10/25/18 02:00 Intake and Output: 10/25/18 10/25/18 06:59 18:59 Intake Total 1520 Output Total 400 Balance 1120 - Medications Medications: Current Medications Pantoprazole Sodium 80 mg/ (Sodium Chloride) 100 mls @ 10 mls/hr IVP .Q10H [facility] Last Admin: 10/24/18 23:16 Dose: 10 mls/hr Metronidazole (Flagyl) 500 mg in 100 mls @ 100 mls/hr IVPB Q8H [facility]; Protocol Last Admin: 10/24/18 23:14 Dose: 100 mls/hr Potassium Chloride/Dextrose/Sod Cl (Potassium Chl 20 Meq In D5-1/2ns) 1,000 mls @ 100 mls/hr IV .Q10H [facility] Last Admin: 10/25/18 02:40 Dose: Not Given Piperacillin Sod/Tazobactam Sod (Zosyn 3.375 Gm Iv Premix) 3.375 gm in 50 mls @ 100 mls/hr IVPB Q6H [facility]; Protocol Last Admin: 10/25/18 02:06 Dose: 100 mls/hr Labetalol HCl (Trandate) 5 mg IVP Q6H PRN PRN Reason: Systolic Blood Pressure Metoclopramide HCl (Reglan) 5 mg IVP Q6H [facility] Last Admin: 10/25/18 02:06 Dose: 5 mg - Labs Labs: 10/25/18 06:26 10/25/18 06:24 PT 14.9 SECONDS (9.7-12.2) H D 10/25/18 06:26 INR 1.4 D 10/25/18 06:26 APTT 27 SECONDS (21-34) D 10/25/18 06:26 - Constitutional Appears: No Acute Distress, Chronically Ill - Head Exam Head Exam: NORMAL INSPECTION - Eye Exam Eye Exam: Normal appearance - ENT Exam ENT Exam: Mucous Membranes Moist Additional comments: NGT in place on sxn. - Respiratory Exam Respiratory Exam: NORMAL BREATHING PATTERN. absent: Respiratory Distress Additional comments: Vapotherm @ - Cardiovascular Exam Cardiovascular Exam: Tachycardia, REGULAR RHYTHM - GI/Abdominal Exam GI & Abdominal Exam: Soft. absent: Distended, Firm, Guarding, Tenderness, Rebound Additional comments: appendectomy scar; well healed - Extremities Exam Extremities Exam: Normal Inspection - Neurological Exam Neurological Exam: Alert, Awake - Psychiatric Exam Psychiatric exam: Normal Affect, Normal Mood - Skin Skin Exam: Dry, Intact, Normal Color, Warm Assessment and Plan - Assessment and Plan (Free Text) Assessment: 83 y/o F w/ Type 4 Hiatal hernia, now requiring pressors. Plan: - strict NPO - NGT on continuous sxn - f/u Echo - f/u cardiology risk stratification - maintain MAPs >65 - possible OR Sunday for gastropexy pending pt status over the weekend and family decision on level of care. Pt seen and discussed w/ Dr. Chris Sue DO PGY3 <Jose A Perez - Last Filed: 10/27/18 18:00> Objective - Vital Signs/Intake and Output Vital Signs (last 24 hours): Temp Pulse Resp BP Pulse Ox 97.8 F 106 H 26 H 85/51 L 96 10/25/18 12:00 10/25/18 12:00 10/25/18 13:44 10/25/18 12:00 10/25/18 12:00 - Labs Labs: 10/25/18 06:26 10/25/18 06:24 PT 14.9 SECONDS (9.7-12.2) H D 10/25/18 06:26 INR 1.4 D 10/25/18 06:26 APTT 27 SECONDS (21-34) D 10/25/18 06:26 Attending/Attestation - Attestation I have personally seen and examined this patient.: Yes I have fully participated in the care of the patient.: Yes I have reviewed all pertinent clinical information, including history, physical exam and plan: Yes Notes (Text): Pt was seen and examined at bedside Agree with above note and assessment Pt with poor prognosis due to ACS and Cardiomegaly No surgical intervention required at present Pt is DNR/ DNI Plan d.w pt's family in detail Risk and benefit explained in detail. .
[2018-10-25 08:31] LABS: BANDS 1 % (0-2); LYMPHOCYTE 4 % (20-40); MONOCYTE 2 % (0-10); NEUTROPHIL 93 % (50-75); PLATELET ESTIMATE NORMAL (NORMAL); TOTAL CELLS COUNTED 100
[2018-10-25] MEDS: metroNIDAZOLE IV 500 mg/100 ml 500 MG/100 ML BAG IVPB SCH (08:33)
[2018-10-25] MEDS: Pantoprazole 80 MG in Sodium Chloride 0.9% 100 ML IVP SCH (08:34)
[2018-10-25 08:55] VITALS: O2SAT 96
--- NOTE | 2018-10-25 09:36 | CP.PCM.PN ---
Subjective - Date & Time of Evaluation Date of Evaluation: 10/25/18 Time of Evaluation: 09:29 - Subjective Subjective: Pt remains lethargic. CXR has worsened, and pt is now relative hypotensive. K is improved 3.7. Objective - Vital Signs/Intake and Output Vital Signs (last 24 hours): Temp Pulse Resp BP Pulse Ox 97.4 F L 103 H 24 85/58 L 96 10/25/18 08:00 10/25/18 08:00 10/25/18 08:49 10/25/18 08:00 10/25/18 08:00 Intake and Output: 10/25/18 10/25/18 06:59 18:59 Intake Total 1520 Output Total 400 Balance 1120 - Medications Medications: Current Medications Pantoprazole Sodium 80 mg/ (Sodium Chloride) 100 mls @ 10 mls/hr IVP .Q10H [facility] Last Admin: 10/25/18 08:34 Dose: 10 mls/hr Metronidazole (Flagyl) 500 mg in 100 mls @ 100 mls/hr IVPB Q8H [facility]; Protocol Last Admin: 10/25/18 08:33 Dose: 100 mls/hr Potassium Chloride/Dextrose/Sod Cl (Potassium Chl 20 Meq In D5-1/2ns) 1,000 mls @ 100 mls/hr IV .Q10H [facility] Last Admin: 10/25/18 02:40 Dose: Not Given Piperacillin Sod/Tazobactam Sod (Zosyn 3.375 Gm Iv Premix) 3.375 gm in 50 mls @ 100 mls/hr IVPB Q6H [facility]; Protocol Last Admin: 10/25/18 08:33 Dose: 100 mls/hr Labetalol HCl (Trandate) 5 mg IVP Q6H PRN PRN Reason: Systolic Blood Pressure Metoclopramide HCl (Reglan) 5 mg IVP Q6H [facility] Last Admin: 10/25/18 08:34 Dose: 5 mg - Labs Labs: 10/25/18 06:26 10/25/18 06:24 PT 14.9 SECONDS (9.7-12.2) H D 10/25/18 06:26 INR 1.4 D 10/25/18 06:26 APTT 27 SECONDS (21-34) D 10/25/18 06:26 - Constitutional Appears: Chronically Ill - Head Exam Head Exam: ATRAUMATIC - Eye Exam Eye Exam: EOMI - ENT Exam ENT Exam: Mucous Membranes Dry - Neck Exam Neck Exam: Full ROM - Respiratory Exam Respiratory Exam: Decreased Breath Sounds - Cardiovascular Exam Cardiovascular Exam: REGULAR RHYTHM - GI/Abdominal Exam GI & Abdominal Exam: Normal Bowel Sounds - Exam External exam: NORMAL EXTERNAL EXAM - Extremities Exam Extremities Exam: Normal Inspection - Back Exam Back Exam: NORMAL INSPECTION - Neurological Exam Neurological Exam: Altered - Skin Skin Exam: Normal Color Assessment and Plan - Assessment and Plan (Free Text) Assessment: 1. Pt has had low BP since EGD. 2. Echo is still pending 3. Will stop IV fluids: IF bp drops, hang IV dopamine or levo 4. Based on echo, additional recommendations will be made. 5. Pt is critically ill.
--- NOTE | 2018-10-25 10:24 | CP.PCM.PCO ---
Physician Communication Note - Physician Communication Note Physician Communication Note: see above
--- NOTE | 2018-10-25 11:06 | RAD ---
Date of service: 10/25/2018 HISTORY: NGT placement COMPARISON: No prior. FINDINGS: LUNGS: Ill-defined bilateral vaguely nodular opacities. Possible metastatic disease versus bilateral pneumonia. Consider further evaluation with CT examination of the chest. PLEURA: Possible trace bilateral pleural effusion. No pneumothorax. CARDIOVASCULAR: No aortic atherosclerotic calcification present. Normal heart size. An nasogastric tube extends to central abdomen. No congestive change. Large hiatal hernia. OSSEOUS STRUCTURES: Right glenohumeral osteoarthritis. VISUALIZED UPPER ABDOMEN: Normal. OTHER FINDINGS: None. IMPRESSION: Large hiatal hernia multifocal bilateral vaguely nodular opacities. Rule out metastasis or bilateral pneumonia. Consider further evaluation with CT examination of the chest.
--- NOTE | 2018-10-25 12:30 | CP.PCM.CON ---
History of Present Illness - History of Present Illness History of Present Illness: Palliative consult requested by Doctor Osmin for goals of care discussion Patient is a 83 yo female admitted from home after nausea and vomiting X 2 days. Patient also complained of epigastric, non radiating pain which is worse after meal. In the past, patient was able to relieve this pain by vomiting the food content. For the last 2 days, vomiting was more than only food particles; it was coffee ground, than bloody. 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 In ED patient was given NGT with 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 Thoracic and general surgery was consulted as well as GI Doctor Billy. Family was unsure about the next step in care due to fear of risks associated with surgery. palliative care was asked to assist in process of decision making. PMH: Hiatal hernia, DVT, PE, HTN Soc. Hx: single, lives at home alone, daughter and on involved in care Fam. Hx: denied Review of Systems - Review of Systems All systems: reviewed and no additional remarkable complaints except Review of Systems: ROS non obtainable from patient due to overall complex condition. ROS obtained from family at bedside. Per them, patient was sleeping most of time, lethargic. Past Patient History - Past Social History Smoking Status: Never Smoked - CARDIAC Hx Hypertension: Yes - PULMONARY Hx Pulmonary Embolism: Yes - HEENT Hx HEENT Problems: No - RENAL Hx Chronic Kidney Disease: No - ENDOCRINE/METABOLIC Hx Endocrine Disorders: No - HEMATOLOGICAL/ONCOLOGICAL Hx Blood Disorders: No - INTEGUMENTARY Hx Dermatological Problems: No - MUSCULOSKELETAL/RHEUMATOLOGICAL Hx Musculoskeletal Disorders: No Hx Falls: No - GASTROINTESTINAL Hx Gastrointestinal Disorders: No - GENITOURINARY/GYNECOLOGICAL Hx Genitourinary Disorders: No - PSYCHIATRIC Hx Psychophysiologic Disorder: No Hx Substance Use: No - SURGICAL HISTORY Hx Appendectomy: Yes (13 years old) Other/Comment: IVC filter on 2000 - ANESTHESIA Hx Anesthesia: Yes Hx Anesthesia Reactions: No Hx Malignant Hyperthermia: No Has any member of the family had a problem w/ anesthesia?: No Meds Allergies/Adverse Reactions: Allergies Allergy/AdvReac Type Severity Reaction Status Date / Time No Known Allergies Allergy Unverified 10/23/18 23:21 - Medications Medications: Current Medications Pantoprazole Sodium 80 mg/ (Sodium Chloride) 100 mls @ 10 mls/hr IVP .Q10H [facility] Last Admin: 10/25/18 08:34 Dose: 10 mls/hr Metronidazole (Flagyl) 500 mg in 100 mls @ 100 mls/hr IVPB Q8H [facility]; Protocol Last Admin: 10/25/18 08:33 Dose: 100 mls/hr Piperacillin Sod/Tazobactam Sod (Zosyn 3.375 Gm Iv Premix) 3.375 gm in 50 mls @ 100 mls/hr IVPB Q6H [facility]; Protocol Last Admin: 10/25/18 08:33 Dose: 100 mls/hr Norepinephrine Bitartrate 4 mg (/ Sodium Chloride) 250 mls @ 15 mls/hr IV .[id number] PRN; Protocol PRN Reason: TITRATE PER MD ORDER Metoclopramide HCl (Reglan) 5 mg IVP Q6H [facility] Last Admin: 10/25/18 08:34 Dose: 5 mg Physical Exam - Constitutional Appears: In Acute Distress, Chronically Ill - Head Exam Head Exam: ATRAUMATIC, NORMAL INSPECTION, NORMOCEPHALIC - Eye Exam Eye Exam: EOMI, Normal appearance, PERRL Pupil Exam: NORMAL ACCOMODATION, PERRL - ENT Exam Additional comments: NGT - Neck Exam Neck exam: Positive for: Normal Inspection - Respiratory Exam Respiratory Exam: Decreased Breath Sounds, NORMAL BREATHING PATTERN - Cardiovascular Exam Cardiovascular Exam: Tachycardia, Irregular Rhythm - GI/Abdominal Exam GI & Abdominal Exam: Hypoactive Bowel Sounds - Rectal Exam Rectal Exam: Deferred - Extremities Exam Extremities exam: Positive for: normal inspection - Back Exam Back exam: NORMAL INSPECTION - Neurological Exam Neurological exam: Alert, Altered - Psychiatric Exam Psychiatric exam: Flat Affect - Skin Skin Exam: Dry, Intact, Normal Color, Warm Results - Vital Signs Recent Vital Signs: Last Vital Signs Temp 97.4 F L 10/25/18 08:00 Pulse 103 H 10/25/18 08:00 Resp 24 10/25/18 10:51 BP 85/58 L 10/25/18 08:00 Pulse Ox 96 10/25/18 08:00 - Labs Result Diagrams: 10/25/18 06:26 10/25/18 06:24 Labs: Laboratory Results - last 24 hr 10/24/18 10/24/18 10/25/18 12:21 17:56 06:24 WBC RBC Hgb Hct MCV MCH MCHC RDW Plt Count MPV Neut % (Auto) Lymph % (Auto) [place]oul[place] % (Auto) Eos % (Auto) Baso % (Auto) Neut # (Auto) Lymph # (Auto) [place]oula # (Auto) Eos # (Auto) Baso # (Auto) Neutrophils % (Manual) Band Neutrophils % Lymphocytes % (Manual) Monocytes % (Manual) Platelet Estimate RBC Morphology PT INR APTT Puncture Site L pCO2 43 pO2 69 L HCO3 32.7 H ABG pH 7.51 H ABG Total CO2 35.6 H ABG O2 Saturation 97.4 ABG Base Excess 10.1 H Troy Test Po ABG Potassium 3.3 L A-a O2 Difference 590.0 Respiratory Index 8.6 Sodium 143.0 139 Chloride 105.0 97 L Glucose 129 H Lactate 2.0 Liter Flow 25.0 FiO2 100.0 Potassium 2.9 L 3.7 Carbon Dioxide 33 H Anion Gap 12 BUN 55 H Creatinine 1.6 H Est GFR ( Amer) 37 Est GFR (Non-Af Amer) 31 Random Glucose 229 H D Lactic Acid Calcium 8.6 Phosphorus 3.1 Magnesium 1.7 Total Bilirubin 1.4 H AST 56 H ALT 25 Alkaline Phosphatase 49 Total Creatine Kinase 447 H CK-MB (Mass) 6.49 H Troponin I 0.1240 H* Total Protein 6.8 Albumin 3.5 D Globulin 3.3 Albumin/Globulin Ratio 1.1 Arterial Blood Potassium 3.3 L Urine Color Urine Clarity Urine pH Ur Specific [place] Urine Protein Urine Glucose (UA) Urine Ketones Urine Blood Urine Nitrate Urine Bilirubin Urine Urobilinogen Ur Leukocyte Esterase Urine WBC (Auto) Urine RBC (Auto) Ur Squamous Epith Cells Stool Occult Blood 10/25/18 10/25/18 10/25/18 06:24 06:26 06:26 WBC 15.2 H RBC 4.98 Hgb 15.0 Hct 46.3 MCV 93.0 D MCH 30.2 MCHC 32.4 L RDW 14.1 Plt Count 203 MPV 8.8 Neut % (Auto) 89.3 H Lymph % (Auto) 5.7 L [place] % (Auto) 5.0 Eos % (Auto) 0.0 Baso % (Auto) 0.0 Neut # (Auto) 13.6 H Lymph # (Auto) 0.9 L [place] # (Auto) 0.8 Eos # (Auto) 0.0 Baso # (Auto) 0.0 Neutrophils % (Manual) 93 H Band Neutrophils % 1 Lymphocytes % (Manual) 4 L Monocytes % (Manual) 2 Platelet Estimate Normal RBC Morphology Normal PT INR APTT Puncture Site pCO2 pO2 HCO3 ABG pH ABG Total CO2 ABG O2 Saturation ABG Base Excess [place] Test ABG Potassium A-a O2 Difference Respiratory Index Sodium Chloride Glucose Lactate Liter Flow FiO2 Potassium Carbon Dioxide Anion Gap BUN Creatinine Est GFR ( Amer) Est GFR (Non-Af Amer) Random Glucose Lactic Acid 2.5 H Calcium Phosphorus Magnesium Total Bilirubin AST ALT Alkaline Phosphatase Total Creatine Kinase CK-MB (Mass) Troponin I Total Protein Albumin Globulin Albumin/Globulin Ratio Arterial Blood Potassium Urine Color Yellow Urine Clarity Hazy Urine pH 5.0 Ur Specific [place] > 1.060 H Urine Protein 2+ H Urine Glucose (UA) Normal Urine Ketones Trace Urine Blood 1+ H Urine Nitrate Negative Urine Bilirubin Negative Urine Urobilinogen Normal Ur Leukocyte Esterase Trace Urine WBC (Auto) 21 H Urine RBC (Auto) 14 H Ur Squamous Epith Cells 2 Stool Occult Blood 10/25/18 10/25/18 06:26 08:06 WBC RBC Hgb Hct MCV MCH MCHC RDW Plt Count MPV Neut % (Auto) Lymph % (Auto) [place] % (Auto) Eos % (Auto) Baso % (Auto) Neut # (Auto) Lymph # (Auto) [place] # (Auto) Eos # (Auto) Baso # (Auto) Neutrophils % (Manual) Band Neutrophils % Lymphocytes % (Manual) Monocytes % (Manual) Platelet Estimate RBC Morphology PT 14.9 H D INR 1.4 D APTT 27 D Puncture Site pCO2 pO2 HCO3 ABG pH ABG Total CO2 ABG O2 Saturation ABG Base Excess [place] Test ABG Potassium A-a O2 Difference Respiratory Index Sodium Chloride Glucose Lactate Liter Flow FiO2 Potassium Carbon Dioxide Anion Gap BUN Creatinine Est GFR ( Amer) Est GFR (Non-Af Amer) Random Glucose Lactic Acid Calcium Phosphorus Magnesium Total Bilirubin AST ALT Alkaline Phosphatase Total Creatine Kinase CK-MB (Mass) Troponin I Total Protein Albumin Globulin Albumin/Globulin Ratio Arterial Blood Potassium Urine Color Urine Clarity Urine pH Ur Specific [place] Urine Protein Urine Glucose (UA) Urine Ketones Urine Blood Urine Nitrate Urine Bilirubin Urine Urobilinogen Ur Leukocyte Esterase Urine WBC (Auto) Urine RBC (Auto) Ur Squamous Epith Cells Stool Occult Blood Positive H Assessment & Plan - Assessment and Plan (Free Text) Assessment: Palliative consult DNR/DNI, POLST on chart, PPS 10 % I reviewed all medical records, and diagnostic studies and examined patient in the bed. Patient is alert, lethargic, responds to tactile stimuli, unable to fallow commends. NGT in place, drainage dark, coffee ground like. Breathing pattern normal, diminished lung sounds. Tachycardia, HR 103, irregular.Abdomen softly distended distant bowel sounds. No pain elicited upon palpation of abdomen. There is no pedal edema. BP 85/58, HR 103, afebrile WBC 15.2, Hb 15.0, + Occult blood, TRPI elevated X 2 Daughter and son at bed side. I spoke to son who is Upper Sorbian speaking and he was translating to the sister.I reviewed patient's clinical presentation and elicited their understanding, expectations and concerns. Son said that him and his sister wanted to respect patient's wishes against any aggressive interventions including CPR and MV, and they signed DNR/DNI. However, both of them are still debating weather or not to pursue further surgical interventions. Son understands that risk associated with procedure is high and would not want to explore his mother to that kind of risk. He asked me to elaborate on options of care. I explained that if family decides against surgical interventions, given patient's condition would than be other possibility. I offered more information about comfort care and different settings where care could be provided; hospital, [place] or home. The son translated for the sister and seemed that sister was not able to decide on something what son did not translate to me. Son explained that they were against surgery but needed extra time to decide where they would want their mother for Comfort care at home vs Institution. I made sure they understood that Comfort care was to provide comfort and that patient is expected to on comfort care. Son added, that was his main concern. he wanted his mother to peacefully and with dignity. We agreed to meet during the day again to catch on the final decision. This was shared with Babs Solorio. Later in the day, Doctor Osmin has informed me that family decided on comfort care only and wanted to talk to SS before making the final decision. Impression * Gastric bleed * Obstruction of gastric outlet * Intolerance of PO intake * NGT in situ * Lethargy * Family concerned with comfort and is against surgical interventions * Family wants to respect patient's wishes for promotion of natural ' DNR/DNI signed yesterday * Family is considering Hospice care Suggestion * Agree with Comfort measures only given patient's age and risks of surgery * Maintain NGT for gastric relief * Oral care * SS to assist family with concerns regarding the health insurance in relation to Hospice care services * I would ask Hospice to evaluate patient and offer their input * Agree with DNR/DNI Advance care planing 50 min palliative care will remain on board as needed
[2018-10-25] MEDS ORDERED: Morphine Sulfate 250 MG in Dextrose 5% In Water 240 ML IV PRN (12:47)
--- NOTE | 2018-10-25 13:12 | CP.PCM.PN ---
Subjective - Date & Time of Evaluation Date of Evaluation: 10/25/18 Time of Evaluation: 13:08 - Subjective Subjective: GI Progress Note for Dr. Cervantes See my communication note submitted earlier today on update on subjective port ion. Objective - Vital Signs/Intake and Output Vital Signs (last 24 hours): Temp Pulse Resp BP Pulse Ox 97.4 F L 103 H 24 85/58 L 96 10/25/18 08:00 10/25/18 08:00 10/25/18 10:51 10/25/18 08:00 10/25/18 08:00 Intake and Output: 10/25/18 10/25/18 06:59 18:59 Intake Total 1520 Output Total 400 Balance 1120 - Medications Medications: Current Medications Pantoprazole Sodium 80 mg/ (Sodium Chloride) 100 mls @ 10 mls/hr IVP .Q10H [facility] Last Admin: 10/25/18 08:34 Dose: 10 mls/hr Morphine Sulfate 250 mg/ (Dextrose) 250 mls @ 2 mls/hr IV .Q24H [facility]; Protocol PRN Reason: PER PROTOCOL - Labs Labs: 10/25/18 06:26 10/25/18 06:24 PT 14.9 SECONDS (9.7-12.2) H D 10/25/18 06:26 INR 1.4 D 10/25/18 06:26 APTT 27 SECONDS (21-34) D 10/25/18 06:26 - Constitutional Appears: Well, Non-toxic - Head Exam Head Exam: ATRAUMATIC, NORMAL INSPECTION - Eye Exam Eye Exam: Normal appearance - ENT Exam Additional comments: NG tube - Respiratory Exam Respiratory Exam: Rhonchi (mild inspiratory, scattered), NORMAL BREATHING PATTERN - Cardiovascular Exam Cardiovascular Exam: REGULAR RHYTHM - GI/Abdominal Exam GI & Abdominal Exam: Soft, Normal Bowel Sounds - Extremities Exam Extremities Exam: absent: Calf Tenderness, Joint Swelling, Tenderness - Neurological Exam Neurological Exam: Alert, Awake - Psychiatric Exam Psychiatric exam: Normal Affect, Normal Mood - Skin Skin Exam: Dry, Intact, Normal Color, Warm Assessment and Plan - Assessment and Plan (Free Text) Assessment: 83 y/o female with PMHx of stage 4 hiatal hernia, 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 GI bleed -pt hemodynamically stable -upper endoscopy 10/24 postponed mid procedure due to risk of aspiration (see endoscopy report). Overnight patient made DNR/DNI. Upper endoscopy rescheduled for 8am today but cancelled. Family refused repeat upper endoscopy despite explaining the procedure, risks, benefits, and alternatives at length this morning. Hospice consult ordered by primary team this afternoon. -continue with protonix gtt -continue with NPO -metoclopramide 5 mg standing, flagyl 500 mg IV q8h added, FFP x 2 added, and continue with NGT low intermittent suctioning Gastric outlet obstruction -possible that there is a mass on inferior aspect of stomach that was not seen today in endoscopy due to excess gastric contents (see endoscopy report) and ch ronic hiatal hernia. -General surgery consulted, appreciate recs -Cardiothoracic surgery consulted, appreciate recs -Palliative care consulted, see recs in note today 10/25 -Hospice care consulted by primary team, appreciate recs DVT ppx: hold coumadin due to GI bleed GI ppx: protonix GTT Diet: NPO Although refusing upper endoscopy and high risk, we will continue to follow. case discussed with Dr. Billy Love PGY1
[2018-10-25 13:44] VITALS: RESP 26
[2018-10-25 14:14] VITALS: BP 85/51; PULSE 106; TEMP 97.8
--- NOTE | 2018-10-25 16:10 | CP.PCM.PN ---
Subjective - Date & Time of Evaluation Date of Evaluation: 10/25/18 Time of Evaluation: 14:00 - Subjective Subjective: Patient seen and examined Patient condition worsen overnight Family requesting for DNR/DNI and comfort measures Objective - Vital Signs/Intake and Output Vital Signs (last 24 hours): Temp Pulse Resp BP Pulse Ox 97.8 F 106 H 26 H 85/51 L 96 10/25/18 12:00 10/25/18 12:00 10/25/18 13:44 10/25/18 12:00 10/25/18 12:00 Intake and Output: 10/25/18 10/25/18 06:59 18:59 Intake Total 1520 Output Total 400 Balance 1120 - Labs Labs: 10/25/18 06:26 10/25/18 06:24 PT 14.9 SECONDS (9.7-12.2) H D 10/25/18 06:26 INR 1.4 D 10/25/18 06:26 APTT 27 SECONDS (21-34) D 10/25/18 06:26 - Head Exam Head Exam: ATRAUMATIC, NORMOCEPHALIC - ENT Exam ENT Exam: Mucous Membranes Moist - Neck Exam Neck Exam: Normal Inspection - Respiratory Exam Respiratory Exam: Decreased Breath Sounds - Cardiovascular Exam Cardiovascular Exam: REGULAR RHYTHM Assessment and Plan (1) Pneumonia Assessment & Plan: Comfort measures. patient DNR/DNI Status: Acute (2) Gastric outlet obstruction Status: Acute (3) NSTEMI (non-ST elevated myocardial infarction) Status: Acute
--- NOTE | 2018-10-25 16:24 | CP.PCM.DIS ---
Provider - Provider Date of Admission: 10/24/18 02:15 Attending physician: Guillaume Solorio MD Consults: 10/24/18 02:00 General Surgery Consult Stat Comment: Consulting Provider: Hansa Hogan Consulting Physician: Hansa Hogan Reason for Consult: gastric outlet obstruction, gi bleed 10/24/18 03:19 Gastroenterology Consult Stat Comment: Consulting Provider: Obey Cervantes Consulting Physician: Obey Cervantes Reason for Consult: GI bleed 10/24/18 05:43 General Surgery Consult Routine Comment: Consulting Provider: Jose A Perez Consulting Physician: Jose A Perez Reason for Consult: Hiatal hernia, upper GIB 10/24/18 09:47 Physician Consult Routine Comment: Consulting Provider: Drew Vidal Consulting Physician: Drew Vidal Reason for Consult: NSTMI,GI bleed,Gastric out let obstruction 10/24/18 09:51 Physician Consult Routine Comment: Consulting Provider: Chu Almanzar Consulting Physician: Chu Almanzar Reason for Consult: Hiatus hernia,retrocardiac stomach,pulmonary eval 10/24/18 10:29 Physician Consult Routine Comment: Consulting Provider: Adam Mitchell Consulting Physician: Adam Mitchell Reason for Consult: Hiatus hernia,outlet obstruction,Retrocardiac stomach 10/24/18 17:26 Critical Care Consult Routine Comment: Consulting Provider: Aba Brown Consulting Physician: Aba Brown Reason for Consult: Respiratory distress/R/O aspiration 10/25/18 10:46 Palliative Care Consult Routine Comment: Consulting Provider: Malina Sánchez Physician Instructions: Reason For Exam: goals of care 10/25/18 13:31 Pastoral Care Referral Routine Comment: Physician Instructions: Reason For Exam: comfort care Time Spent in preparation of Discharge (in minutes): 45 Diagnosis - Discharge Diagnosis (1) Hiatal hernia with obstruction but no gangrene Status: Acute Priority: High (2) Pneumonia Status: Acute Priority: High Hospital Course - Lab Results Lab Results: Micro Results 10/24/18 07:25 Naris MRSA Culture (Admit) - Final MRSA NOT DETECTED Most Recent Lab Values WBC 15.2 K/uL (4.8-10.8) H 10/25/18 06:26 RBC 4.98 Mil/uL (3.80-5.20) 10/25/18 06:26 Hgb 15.0 g/dL (11.0-16.0) 10/25/18 06:26 Hct 46.3 % (34.0-47.0) 10/25/18 06:26 MCV 93.0 fL (81.0-99.0) D 10/25/18 06:26 MCH 30.2 pg (27.0-31.0) 10/25/18 06:26 MCHC 32.4 g/dL (33.0-37.0) L 10/25/18 06:26 RDW 14.1 % (11.5-14.5) 10/25/18 06:26 Plt Count 203 K/uL (130-400) 10/25/18 06:26 MPV 8.8 fL (7.2-11.7) 10/25/18 06:26 Neut % (Auto) 89.3 % (50.0-75.0) H 10/25/18 06:26 Lymph % (Auto) 5.7 % (20.0-40.0) L 10/25/18 06:26 [place] % (Auto) 5.0 % (0.0-10.0) 10/25/18 06:26 Eos % (Auto) 0.0 % (0.0-4.0) 10/25/18 06:26 Baso % (Auto) 0.0 % (0.0-2.0) 10/25/18 06:26 Neut # (Auto) 13.6 K/uL (1.8-7.0) H 10/25/18 06:26 Lymph # (Auto) 0.9 K/uL (1.0-4.3) L 10/25/18 06:26 [place] # (Auto) 0.8 K/uL (0.0-0.8) 10/25/18 06:26 Eos # (Auto) 0.0 K/uL (0.0-0.7) 10/25/18 06:26 Baso # (Auto) 0.0 K/uL (0.0-0.2) 10/25/18 06:26 Neutrophils % (Manual) 93 % (50-75) H 10/25/18 06:26 Band Neutrophils % 1 % (0-2) 10/25/18 06:26 Lymphocytes % (Manual) 4 % (20-40) L 10/25/18 06:26 Monocytes % (Manual) 2 % (0-10) 10/25/18 06:26 Platelet Estimate Normal (NORMAL) 10/25/18 06:26 RBC Morphology Normal 10/25/18 06:26 PT 14.9 SECONDS (9.7-12.2) H D 10/25/18 06:26 INR 1.4 D 10/25/18 06:26 APTT 27 SECONDS (21-34) D 10/25/18 06:26 Puncture Site L 10/24/18 17:56 pCO2 43 mm/Hg (35-45) 10/24/18 17:56 pO2 69 mm/Hg (80-100) L 10/24/18 17:56 HCO3 32.7 mmol/L (21-28) H 10/24/18 17:56 ABG pH 7.51 (7.35-7.45) H 10/24/18 17:56 ABG Total CO2 35.6 mmol/L (22-28) H 10/24/18 17:56 ABG O2 Saturation 97.4 % (95-98) 10/24/18 17:56 ABG Base Excess 10.1 mmol/L (-2.0-3.0) H 10/24/18 17:56 [place] Test Po 10/24/18 17:56 ABG Potassium 3.3 mmol/L (3.6-5.2) L 10/24/18 17:56 VBG pH 7.49 (7.32-7.43) H 10/24/18 00:35 VBG pCO2 57 mmHg (40-60) 10/24/18 00:35 VBG HCO3 37.3 mmol/L 10/24/18 00:35 VBG Total CO2 45.1 mmol/L (22-28) H 10/24/18 00:35 VBG O2 Sat (Calc) 58.5 % (40-65) 10/24/18 00:35 VBG Base Excess 17.0 mmol/L (0.0-2.0) H 10/24/18 00:35 VBG Potassium 2.8 mmol/L (3.6-5.2) L 10/24/18 00:35 A-a O2 Difference 590.0 mm/Hg 10/24/18 17:56 Respiratory Index 8.6 10/24/18 17:56 Sodium 143.0 mmol/l (132-148) 10/24/18 17:56 Chloride 105.0 mmol/L (98-107) 10/24/18 17:56 Glucose 129 mg/dl (65-105) H 10/24/18 17:56 Lactate 2.0 mmol/L (0.7-2.1) 10/24/18 17:56 Liter Flow 25.0 10/24/18 17:56 FiO2 100.0 % 10/24/18 17:56 Sodium 139 mmol/L (132-148) 10/25/18 06:24 Potassium 3.7 mmol/L (3.6-5.2) 10/25/18 06:24 Chloride 97 mmol/L (98-107) L 10/25/18 06:24 Carbon Dioxide 33 mmol/L (22-30) H 10/25/18 06:24 Anion Gap 12 (10-20) 10/25/18 06:24 BUN 55 mg/dL (7-17) H 10/25/18 06:24 Creatinine 1.6 mg/dL (0.7-1.2) H 10/25/18 06:24 Est GFR ( Amer) 37 10/25/18 06:24 Est GFR (Non-Af Amer) 31 10/25/18 06:24 Random Glucose 229 mg/dL (65-105) H D 10/25/18 06:24 Hemoglobin A1c 5.7 % (4.2-6.5) 10/24/18 05:02 Lactic Acid 2.5 mmol/L (0.7-2.1) H 10/25/18 06:24 Calcium 8.6 mg/dl (8.6-10.4) 10/25/18 06:24 Phosphorus 3.1 mg/dL (2.5-4.5) 10/25/18 06:24 Magnesium 1.7 mg/dL (1.6-2.3) 10/25/18 06:24 Total Bilirubin 1.4 mg/dL (0.2-1.3) H 10/25/18 06:24 AST 56 U/L (14-36) H 10/25/18 06:24 ALT 25 U/L (9-52) 10/25/18 06:24 Alkaline Phosphatase 49 U/L (38-126) 10/25/18 06:24 Total Creatine Kinase 447 U/L (30-135) H 10/24/18 12:21 CK-MB (Mass) 6.49 ng/mL (0.0-3.38) H 10/24/18 12:21 Troponin I 0.1240 ng/mL (0.00-0.120) H* 10/24/18 12:21 NT-Pro-B Natriuret Pep 3110 pg/mL (0-900) H 10/23/18 23:50 Total Protein 6.8 g/dL (6.3-8.3) 10/25/18 06:24 Albumin 3.5 g/dL (3.5-5.0) D 10/25/18 06:24 Globulin 3.3 gm/dL (2.2-3.9) 10/25/18 06:24 Albumin/Globulin Ratio 1.1 (1.0-2.1) 10/25/18 06:24 Lipase 112 U/L (23-300) 10/23/18 23:32 Arterial Blood Potassium 3.3 mmol/L (3.6-5.2) L 10/24/18 17:56 Venous Blood Potassium 2.8 mmol/L (3.6-5.2) L 10/24/18 00:35 Urine Color Yellow (YELLOW) 10/25/18 06:26 Urine Clarity Hazy (Clear) 10/25/18 06:26 Urine pH 5.0 (5.0-8.0) 10/25/18 06:26 Ur Specific [place] > 1.060 (1.003-1.030) H 10/25/18 06:26 Urine Protein 2+ mg/dL (NEGATIVE) H 10/25/18 06:26 Urine Glucose (UA) Normal mg/dL (Normal) 10/25/18 06:26 Urine Ketones Trace mg/dL (NEGATIVE) 10/25/18 06:26 Urine Blood 1+ (NEGATIVE) H 10/25/18 06:26 Urine Nitrate Negative (NEGATIVE) 10/25/18 06:26 Urine Bilirubin Negative (NEGATIVE) 10/25/18 06:26 Urine Urobilinogen Normal mg/dL (0.2-1.0) 10/25/18 06:26 Ur Leukocyte Esterase Trace [place]/uL (Negative) 10/25/18 06:26 Urine WBC (Auto) 21 /hpf (0-5) H 10/25/18 06:26 Urine RBC (Auto) 14 /hpf (0-3) H 10/25/18 06:26 Ur Squamous Epith Cells 2 /hpf (0-5) 10/25/18 06:26 Stool Occult Blood Positive (NEGATIVE) H 10/25/18 08:06 Blood Type A POSITIVE 10/24/18 01:47 Blood Type Confirm A POSITIVE 10/24/18 01:47 Antibody Screen Negative 10/24/18 01:47 - Hospital Course Hospital Course: Patient presented to the ED for evaluation of vomiting and hematemesis; admitted for treatment of Intrathoracic hiatal hernia, upper GI bleed, and subsequent suspected aspiration pneumonia. Patient was evaluated in ED. NGT in place. Vitals showed poor spO2 of 94% on room air. Labs revealed leukocytosis of 14.7, hypokalemia of 2.7. Troponin was elevated x3. EKG showed NSR at 86, possible left atrial enlargement, incomplete RBBB; patient's personal automatic lathe tender consulted, Dr. Vidal. Zofran was given to control vomiting. GI, Dr. Cervantes consulted to evaluate upper GI bleed. Sx consulted, Dr. Hogan, Dr. Perez for evaluation of hernia. CTsx consulted, Dr. Mitchell for further CT intervention. During admission, pt's electrolytes were repleted PRN. Patient's GI bleed treated with protonix drip. Patient's INR corrected w/ FFP. Patient had planned EGD however vomited during procedure, and EGD unsuccessful. Pt subsequently developed respiratory distress requiring BiPAP. CXR revealed new consolidation. Pt was treated for suspected aspiration PNA, and IV abx started. ICU was consulted for worsening respiratory distress. Family and patient agreed to POLST with DNR/DNI. Patient then became hypotensive. Family decided against initiating pressors. After family discussion, patient was made Hospice, with comfort care measures in place. Patient discharged to Hospice. HPI on admission: "Patient is a 83 y/o female with past medical history of hiatal hernia, DVT/PE on coumadin, HTN who presented to the ED with complaints of non-radiating epigastric pain and vomiting for the past 2 days. Pt presents with daughterSanjuana. Daughter and pt both confirm that she has vomiting in excess of 7 times, which began right after she last ate 2 days ago. Pt has a history of feeling full after eating, which causes epigastric abdominal pain that is relieved by vomiting. However, during these past two days, the pain did not resolve with vomiting. Vomit advanced from food material, to liquid material, to some bright bloody material. She is not only vomiting dark, coffee ground material. Last bowel movement was 2 days ago, which was normal. Denies fever, chills, chest pain, palpitations, sob, diarrhea, urinary changes, numbness or tingling, headache, blurry vision, falls, trauma." Discharge Exam - Head Exam Head Exam: ATRAUMATIC, NORMOCEPHALIC - Additional Findings Additional findings: - Constitutional Appears: Non-toxic, In Acute Distress - Head Exam Head Exam: ATRAUMATIC, NORMAL INSPECTION, NORMOCEPHALIC - Eye Exam Eye Exam: EOMI, Normal appearance - ENT Exam ENT Exam: Mucous Membranes Dry Additional comments: tongue with dark colored residue. NGT draining dark output - Neck Exam Neck Exam: Normal Inspection - Respiratory Exam Respiratory Exam: Decreased Breath Sounds, Rales, Rhonchi, Respiratory Distress. absent: Accessory Muscle Use, NORMAL BREATHING PATTERN (tachypneic) - Cardiovascular Exam Cardiovascular Exam: Tachycardia, REGULAR RHYTHM - GI/Abdominal Exam GI & Abdominal Exam: Soft, Hypoactive Bowel Sounds. absent: Distended, Tenderness - Extremities Exam Extremities Exam: Normal Inspection. absent: Calf Tenderness, Pedal Edema - Neurological Exam Neurological Exam: Alert, Awake - Psychiatric Exam Psychiatric exam: Normal Affect, Normal Mood - Skin Skin Exam: Dry, Intact, Pallor, Warm Discharge Plan - Follow Up Plan Condition: GUARDED Disposition: HOSPICE - MEDICAL FACILITY Instructions: Gastrointestinal Bleeding (DC), Nausea and Vomiting, Adult (DC), Gastric Outlet Obstruction, Adult, Acute Abdominal Pain (GEN) Additional Instructions: Patient is being discharged to inpatient hospice.
--- NOTE | 2018-10-25 18:58 | CARD ---
APPROVED REPORT Date of service: 10/25/2018 EXAM: Two-dimensional and M-mode echocardiogram with Doppler and color Doppler. Other Information Quality : Technically LimitedRhythm : INDICATION Pulmonary Embolism Non STEMI TDS 2D DIMENSIONS IVSd1.4 (0.7-1.1cm)LVDd2.1 (3.9-5.9cm) PWd1.4 (0.7-1.1cm)LVDs1.4 (2.5-4.0cm) FS (%) 32.7 %LVEF (%)64.1 (>50%) M-Mode DIMENSIONS Aortic Root2.67 (2.2-3.7cm)Aortic Cusp Exc.1.60 (1.5-2.0cm) Mitral Valve MV E [id number]/sMV A Kizgwplz209.2cm/sE/A ratio0.8 TDI Lateral E' Peak V4.54cm/sMedial E' Peak V3.06cm/sE/Lateral E'22.5 E/Medial E'33.4 Tricuspid Valve TR Peak [id number]/sTR Peak [id number] LEFT VENTRICLE The left ventricle is normal size. There is mild to moderate concentric left ventricular hypertrophy. The left ventricular function is normal. The left ventricular ejection fraction is within the normal range. There is normal LV segmental wall motion. Transmitral Doppler flow pattern is Grade I-abnormal relaxation pattern. ATRIA The left atrium size is normal. The right atrium size is normal. AORTIC VALVE The aortic valve is severely thickened. No aortic regurgitation is present. There is no aortic valvular stenosis. TRICUSPID VALVE There is mild pulmonary hypertension. GREAT VESSELS The aortic root is normal in size. <Conclusion> There is mild to moderate concentric left ventricular hypertrophy. The left ventricular function is normal. The left ventricular ejection fraction is within the normal range. There is normal LV segmental wall motion. Transmitral Doppler flow pattern is Grade I-abnormal relaxation pattern. There is mild pulmonary hypertension. The Mitral valve is highly echogenic and left atrium is almost completely obsecured Consder CASPER if cloncally indicated. Consider Chest CT scan to rule out a Juxta cardica mass
--- NOTE | 2018-10-25 19:19 | CARD ---
APPROVED REPORT Date of service: 10/24/2018 EKG Measurement Heart [id number] <Conclusion> Normal sinus rhythm Normal ECG
--- NOTE | 2018-10-28 09:25 | CARD ---
APPROVED REPORT Date of service: 10/24/2018 EKG Measurement Heart [id number] <Conclusion> Sinus tachycardia Otherwise normal ECG
--- NOTE | 2018-10-28 22:57 | CARD ---
APPROVED REPORT Date of service: 10/23/2018 EKG Measurement Heart [id number] <Conclusion> Normal sinus rhythm Possible Left atrial enlargement Incomplete right bundle branch block Borderline ECG
== END 2018-10-25 15:39 | disposition hospice, inpatient (51) | DRG 391 ==
LOC: C.ER 23:11 → C.9E 10-24 02:15 → C.9I 10-24 04:07
PROVIDERS: ADMIT Internal Medicine; ATTEND Internal Medicine
PROC: 0D9670Z Drainage of Stomach with Drainage Device, Via Natural or Artificial Opening (ICD-10-PCS; 2018-10-24)
PROC: 30233K1 Transfusion of Nonautologous Frozen Plasma into Peripheral Vein, Percutaneous Approach (ICD-10-PCS; 2018-10-24)
PROC: 5A09357 Assistance with Respiratory Ventilation, Less than 24 Consecutive Hours, Continuous Positive Airway Pressure (ICD-10-PCS; 2018-10-24)
PROC: 0DJ08ZZ Inspection of Upper Intestinal Tract, Via Natural or Artificial Opening Endoscopic (ICD-10-PCS; principal; 2018-10-24 12:00)
DX: K44.0 Diaphragmatic hernia with obstruction, without gangrene (principal); I21.4 Non-ST elevation (NSTEMI) myocardial infarction; J69.0 Pneumonitis due to inhalation of food and vomit; K92.0 Hematemesis; K31.1 Adult hypertrophic pyloric stenosis; E87.3 Alkalosis; E86.0 Dehydration; E87.6 Hypokalemia; I11.9 Hypertensive heart disease without heart failure; I51.7 Cardiomegaly; R09.02 Hypoxemia; I45.10 Unspecified right bundle-branch block; R06.03 Acute respiratory distress; I95.81 Postprocedural hypotension; Z66 Do not resuscitate; Z51.5 Encounter for palliative care; Z53.9 Procedure and treatment not carried out, unspecified reason; Z86.711 Personal history of pulmonary embolism; Z86.718 Personal history of other venous thrombosis and embolism; Z79.01 Long term (current) use of anticoagulants; Z90.49 Acquired absence of other specified parts of digestive tract; Z82.49 Family history of ischemic heart disease and other diseases of the circulatory system; Z83.3 Family history of diabetes mellitus

== ENCOUNTER 2018-10-25 15:34 | Inpatient (IN) | payer OTHER ==
[2018-10-25 16:21] VITALS: BMI 26.6
[2018-10-25] MEDS ORDERED: Morphine Sulfate 250 MG in Dextrose 5% In Water 240 ML IV ONE (16:29)
[2018-10-25 16:46] VITALS: RESP 31; O2SAT 88
--- NOTE | 2018-10-25 17:58 | CP.PCM.HP ---
Past Patient History - Past Social History Smoking Status: Never Smoked - CARDIAC Hx Hypertension: Yes - PULMONARY Hx Pulmonary Embolism: Yes - HEENT Hx HEENT Problems: No - RENAL Hx Chronic Kidney Disease: No - ENDOCRINE/METABOLIC Hx Endocrine Disorders: No - HEMATOLOGICAL/ONCOLOGICAL Hx Blood Disorders: No - INTEGUMENTARY Hx Dermatological Problems: No - MUSCULOSKELETAL/RHEUMATOLOGICAL Hx Musculoskeletal Disorders: No Hx Falls: No - GASTROINTESTINAL Hx Gastrointestinal Disorders: No - GENITOURINARY/GYNECOLOGICAL Hx Genitourinary Disorders: No - PSYCHIATRIC Hx Psychophysiologic Disorder: No Hx Substance Use: No - SURGICAL HISTORY Hx Appendectomy: Yes (13 years old) Other/Comment: IVC filter on 2000 - ANESTHESIA Hx Anesthesia: Yes Hx Anesthesia Reactions: No Hx Malignant Hyperthermia: No Meds Allergies/Adverse Reactions: Allergies Allergy/AdvReac Type Severity Reaction Status Date / Time No Known Allergies Allergy Unverified 10/23/18 23:21 Results - Vital Signs Recent Vital Signs: Last Vital Signs Temp Pulse 113 H 10/25/18 16:33 Resp 31 H 10/25/18 16:33 BP Pulse Ox 88 L 10/25/18 16:33
--- NOTE | 2018-10-25 18:20 | CP.PCM.HP ---
History of Present Illness - History of Present Illness History of Present Illness: Patient presented to the ED for evaluation of vomiting and hematemesis; admitted for treatment of Intrathoracic hiatal hernia, upper GI bleed, and subsequent suspected aspiration pneumonia. Patient transferred to inpatient hospice following a complicated stay. Patient was found to have a large intrathoracic hiatal hernia causing respiratory and cardiac compromise. Pt subsequently developed respiratory distress requiring BiPAP 2/2 to a suspected respiratory PNA. Family and patient agreed to POLST with DNR/DNI. Pt subsequently developed hypotension. Family decided against initiating pressors. After family discussion, patient was made Hospice, with comfort care measures in place. Present on Admission - Present on Admission Any Indicators Present on Admission: No Review of Systems - Review of Systems Systems not reviewed;Unavailable: Respiratory Distress Past Patient History - Past Social History Smoking Status: Never Smoked - CARDIAC Hx Hypertension: Yes - PULMONARY Hx Pulmonary Embolism: Yes - HEENT Hx HEENT Problems: No - RENAL Hx Chronic Kidney Disease: No - ENDOCRINE/METABOLIC Hx Endocrine Disorders: No - HEMATOLOGICAL/ONCOLOGICAL Hx Blood Disorders: No - INTEGUMENTARY Hx Dermatological Problems: No - MUSCULOSKELETAL/RHEUMATOLOGICAL Hx Musculoskeletal Disorders: No Hx Falls: No - GASTROINTESTINAL Hx Gastrointestinal Disorders: No - GENITOURINARY/GYNECOLOGICAL Hx Genitourinary Disorders: No - PSYCHIATRIC Hx Psychophysiologic Disorder: No Hx Substance Use: No - SURGICAL HISTORY Hx Appendectomy: Yes (13 years old) Other/Comment: IVC filter on 2000 - ANESTHESIA Hx Anesthesia: Yes Hx Anesthesia Reactions: No Hx Malignant Hyperthermia: No Meds Allergies/Adverse Reactions: Allergies Allergy/AdvReac Type Severity Reaction Status Date / Time No Known Allergies Allergy Unverified 10/23/18 23:21 Physical Exam - Constitutional Appears: In Acute Distress, Confused, Chronically Ill - Head Exam Head Exam: ATRAUMATIC, NORMAL INSPECTION, NORMOCEPHALIC - Eye Exam Eye Exam: EOMI, Normal appearance - ENT Exam ENT Exam: Mucous Membranes Dry - Neck Exam Neck exam: Positive for: Normal Inspection - Respiratory Exam Respiratory Exam: Decreased Breath Sounds, Rales, Respiratory Distress - Cardiovascular Exam Cardiovascular Exam: Tachycardia, REGULAR RHYTHM - GI/Abdominal Exam GI & Abdominal Exam: Soft. absent: Distended - Extremities Exam Extremities exam: Positive for: normal inspection - Skin Skin Exam: Dry, Intact, Pallor, Warm Results - Vital Signs Recent Vital Signs: Last Vital Signs Temp Pulse 113 H 10/25/18 16:33 Resp 31 H 10/25/18 16:33 BP Pulse Ox 88 L 10/25/18 16:33 Assessment & Plan - Assessment and Plan (Free Text) Assessment: 83 year old female admitted to hospice for comfort care of worsening respiratory depression and hypotension Plan: -comfort care measures in place -NGT to suction to prevent further vomiting -NPO to prevent further vomiting -zofran prn, nausea/vomiting -morphine drip @1ml, titrate prn -ativan 1mg iv prn agitation -tylenol prn, fevers -scopolamine -suction secretions prn -ice chips prn Dispo: Patient is currently with family and understands the severity of her condition and her poor prognosis. She has made it clear she does not want aggressive measures, and chooses comfort care measures. Discussed w/ Dr. Solorio -Gloria Collier, PGY-1
--- NOTE | 2018-10-25 19:32 | CP.PCM.PRO ---
Pronouncement of Note - Clinical Findings Physical Exam: No Response Verbal/Painful Stimuli, Absent Peripheral Puls es{Carotid & Femoral}, Absent Heart & Breath Sounds, No Corneal Reflex, Absence of Vital Signs - Pronouncement Time Time of Pronouncement of : 19:25 Additional Comments: Absent corneal reflex absent heart sounds absent breath sounds absent peripheral pulses - Notifications Pronouncement Notifications: Family Notified, Atending Notified Burr Grinder Notified: Yes - Autopsy Autopsy Requested: No - [place] [id number]
[2018-10-25 19:33] VITALS: PULSE 115
--- NOTE | 2018-10-26 00:52 | CP.PCM.DIS ---
Provider - Provider Date of Admission: 10/25/18 15:34 Attending physician: Guillaume Solorio MD Time Spent in preparation of Discharge (in minutes): 45 Diagnosis - Discharge Diagnosis (1) Pneumonia Status: Acute Priority: High (2) Upper GI bleed Status: Acute (3) Hiatal hernia with obstruction but no gangrene Status: Chronic Priority: High Hospital Course - Hospital Course Hospital Course: Patient presented to the ED for evaluation of vomiting and hematemesis; admitted for treatment of Intrathoracic hiatal hernia, upper GI bleed, and subsequent suspected aspiration pneumonia. Patient transferred to inpatient hospice following a complicated stay. Patient was found to have a large intrathoracic hiatal hernia causing respiratory and cardiac compromise. Pt subsequently developed respiratory distress requiring BiPAP 2/2 to a suspected respiratory PNA. Family and patient agreed to POLST with DNR/DNI. Pt subsequently developed hypotension. Family decided against initiating pressors. After family discussion, patient was made Hospice, with comfort care measures in place. For Comfort Care: -comfort care measures in place -NGT to suction to prevent further vomiting -NPO to prevent further vomiting -zofran prn, nausea/vomiting -morphine drip @1ml, titrate prn -ativan 1mg iv prn agitation -tylenol prn, fevers -scopolamine -suction secretions prn -ice chips prn Dispo: Patient is currently with family and understands the severity of her condition and her poor prognosis. She has made it clear she does not want aggressive measures, and chooses comfort care measures. Pt @ 19:25 on 10/25/18 Discharge Exam - Head Exam Head Exam: ATRAUMATIC, NORMAL INSPECTION, NORMOCEPHALIC - Additional Findings Additional findings: - Clinical Findings Physical Exam: No Response Verbal/Painful Stimuli, Absent Peripheral Pulses{Carotid & Femoral}, Absent Heart & Breath Sounds, No Corneal Reflex, Absence of Vital Signs Discharge Plan - Follow Up Plan Condition: GOOD Disposition: WITH WITHOUT AUTOPSY Instructions: Open Herniorrhaphy (DC), Laparoscopic Herniorrhaphy (DC), Inguinal Hernia (DC)
== END 2018-10-25 19:25 | DRG 951 ==
LOC: C.9I 15:34
PROVIDERS: ADMIT Internal Medicine; ATTEND Internal Medicine
DX: Z51.5 Encounter for palliative care (principal); J69.0 Pneumonitis due to inhalation of food and vomit; K44.0 Diaphragmatic hernia with obstruction, without gangrene; K92.0 Hematemesis; I10 Essential (primary) hypertension; Z66 Do not resuscitate; Z86.711 Personal history of pulmonary embolism; Z90.49 Acquired absence of other specified parts of digestive tract